=== PATIENT | female | born 1935 | race Caucasian/White ===

== ENCOUNTER 2016-08-10 14:59 | Emergency (ER) | payer MEDICARE ==
[2016-08-10 15:32] LABS: Hematocrit 41.1 % (37.0-47.0); Hemoglobin 13.6 gm/dL (12.5-16.0); Mean Cell Volume 90.3 fl (78-100); Mean Corpuscular Hemoglobin 29.9 pg (27-31); Mean Corpuscular Hgb Conc 33.1 g/dl (32-36); Neutrophil # 7.4 K/mm3 (1.3-6.0); Neutrophil % 77.6 % (42-75.0); Platelet Count 307 K/mm3 (150-450); Red Blood Count 4.55 M/mm3 (4.2-5.4); Red Cell Distribution Width 13.3 % (11.5-14.0); White Blood Count 9.6 K/mm3 (4.0-10.5)
[2016-08-10 15:43] LABS: Prothrombin Time (Patient) 10.6 Seconds (9.4-11.4)
[2016-08-10 15:45] LABS: INR 1.02 INR (0.90-1.10)
[2016-08-10 15:46] LABS: Albumin * 4.3 gm/dl (3.4-5.0); Anion Gap 14.7 mmol/L (6.8-13.8); BUN/Creatinine Ratio 12.8 (9.0-21.6); Bilirubin, Total 0.6 mg/dL (0.0-1.1); Ca. Corrected For Albumin 8.6 mg/dL (8.4-10.2); Calcium * 9.2 mg/dL (7.9-10.9); Carbon Dioxide 27.4 mmol/L (24-32.6); Magnesium 1.5 mg/dL (1.2-2.8); Potassium 4.1 mmol/L (3.4-4.6); Total Protein 7.6 gm/dL (6.2-8.2)
[2016-08-10 16:21] LABS: Urine Bilirubin Negative (NEGATIVE); Urine Ketone Negative (NEGATIVE); Urine Nitrite Negative (NEGATIVE); Urine Protein 15 mg/dL (NEGATIVE); Urine Urobilinogen Normal (NORMAL)
--- OUTSIDE RECORDS SUMMARY | 2016-08-10 16:29 | XMS REPORT | Continuity of Care Document ---
:1935 Author Organization [facility] ([facility]) Address [address] [place] [address] Phone [phone] Care Team Providers Name Role Phone Angela Echavarria Primary Care Provider [phone] Source Comments This disclosure is being made pursuant to the Care Everywhere program, applicable federal and state laws, and may not contain all informaitonavailable regarding this patient.[facility] ([facility]) Active Allergies and Adverse Reactions No Known Allergies Current Medications Prescription Sig. Disp. Refills Start Date End Date Status aspirin 81 mg tablet Take 81 mg by Active mouth daily. pravastatin 40 mg Take 20 mg by Active tablet mouth every evening. levothyroxine 50 mcg Take 50 mcg by Active tablet mouth every morning before breakfast. alendronate 70 mg Take 1 Tab by Active tablet mouth every week metFORMIN 1,000 mg Take 1 Tab by 10/25/2013 Active tablet mouth 2 times daily memantine (NAMENDA XR) Take 28 mg by Active 28 mg XR sprinkle mouth daily. capsule cyanocobalamin (VITAMIN Take 500 mcg by Active B-12) 500 mcg tablet mouth daily. cholecalciferol Take 2,000 Units Active (VITAMIN D3) 2,000 unit by mouth daily. capsule LANTUS 100 unit/mL 5 Units daily. 07/09/2016 Active injection vial HUMALOG KWIKPEN 100 5 Units daily. 06/22/2016 Active unit/mL injection pen donepezil 10 mg tablet Take 1 tab daily 90 tablet 3 08/05/2016 Active after completing 6 weeks of 5mg daily with no side effects donepezil 5 mg tablet Take one tab 45 tablet 0 08/05/2016 Active daily for 6 weeks, then increase to 10mg daily Active Problems Problem Noted Date S/P AVR (aortic valve replacement) 02/26/2016 Overview: #19 Epic Aortic stenosis 12/18/2014 Overview: S/p #19 Epic AVR CAD in [place] artery 12/18/2014 Overview: 2V CAD, unable to be bypassed at time of AVR Mitral regurgitation 12/18/2014 Diastolic dysfunction 12/18/2014 Atherosclerosis of both carotid arteries 12/18/2014 Chronic renal insufficiency 12/18/2014 Essential hypertension 12/18/2014 Hyperlipidemia 12/18/2014 Diabetes mellitus 12/18/2014 Falls frequently 02/22/2013 Neural hearing loss, bilateral 02/22/2013 Most Recent Encounters Date Type Specialty Providers Description 08/05/2016 Office Visit Neurology Antoine Alves MD Dx: Alzheimer's dementia Leo Mesa MD without behavioral Jamey Napier MD disturbance, unspecified timing of dementia onset (Primary Dx) Social History Tobacco Use Types Packs/Day Years Used Date Never Smoker Smokeless Tobacco: Never Used Alcohol Use Drinks/Week oz/Week Comments No Last Filed Vital Signs Vital Sign Reading Time Taken Blood Pressure 129/69 08/05/2016 2:00 PM INCLUSION SPECIAL EDUCATOR Pulse 96 08/05/2016 2:00 PM INCLUSION SPECIAL EDUCATOR Temperature 36.8 C (98.2 F) 02/22/2013 9:37 AM CDT Respiratory Rate - - Height 1.575 m (5' 2") 08/05/2016 2:00 PM INCLUSION SPECIAL EDUCATOR Weight 52.617 kg (116 lb) 08/05/2016 2:00 PM INCLUSION SPECIAL EDUCATOR Body Mass Index 21.21 08/05/2016 2:00 PM INCLUSION SPECIAL EDUCATOR Oxygen Saturation - - Plan of Care Date Type Specialty Providers Description 02/04/2017 Appointment Neurology Leo Mesa MD [address] [place] [address] [phone] (Fax) Chief Comp: Patient Jamey Napier MD [address] [place] [address] [phone] (Fax) Reported Reason For Visit 04/21/2017 Appointment Heart and Vascular Carlos Zepeda, Chief Comp: Patient Reported Reason For [address] [place] [address] [phone] (Fax) Health Maintenance Due Date Last Done Comments Hepatitis B Vaccine (1 of 3 - Primary Series) 1935 Tdap Vaccine 1946 DIABETIC: Cholesterol 1953 Diabetic: Hdl 1953 DIABETIC: Hemoglobin A1C 1953 Diabetic: Ldl 1953 DIABETIC: Microalbumin 1953 DIABETIC: Triglycerides 1953 Td Vaccine 1953 Colonoscopy 01/30/1985 Zoster Vaccine 1995 Osteoporosis Screening (DXA Bone Density) 02/01/2000 Pneumococcal Vaccine (1 of 2 - PCV13) 02/01/2000 DIABETIC: Foot Exam 12/18/2014 DIABETIC: Retinal Eye Exam 12/18/2014 Influenza Vaccine: Seasonal (#1) 01/13/2016 Results from Last 3 Months Not on file
[2016-08-10 16:34] LABS: Urine Appearance Clear; Urine Blood 10 /ul (NEGATIVE); Urine Color Yellow
[2016-08-10 16:35] LABS: Urine Bacteria 2+; Urine RBC None Seen /hpf (0-5); Urine WBC None Seen /hpf (0-5)
[2016-08-10] MEDS ORDERED: DIPHTH,PERTUSS(ACELL),TET VAC 0.5 ML VIAL IM ONE ×2 (18:32→19:02)
--- NOTE | 2016-08-10 18:43 | ERNOTE ---
Head Injury HPI - Narrative Date of Service: 08/10/16 - General Injury to: head Time Seen by Provider: 08/10/16 15:09 Source: patient, EMS Exam Limitations: other - Cognitive impairment - Immun/Allergies/Home Medications Immunization: IMMUNIZATION HX Immunizations Up to Date Yes History of Influenza Vaccine Yes Hx Pneumococcal Vaccination No Allergies/Adverse Reactions: Allergies Allergy/AdvReac Type Severity Reaction Status Date / Time No Known Allergies Allergy Verified 05/09/16 20:57 Home Medications: HOME MEDICATIONS Aspirin 81 mg PO DAILY 10/18/15 [Last Taken 01/22/16 08:00] Calcium Carbonate/Vitamin D3 [Calcium 600-Vit D3 800 Tablet] 1 tab PO BID [Last Taken 01/21/16 17:00] Cholecalciferol (Vitamin D3) [Vitamin D3] 2,000 unit PO DAILY 10/18/15 [Last Taken 01/21/16 17:00] Cyanocobalamin [Vitamin B-12] 500 mcg PO DAILY 10/18/15 [Last Taken 01/22/16 08: 00] Levothyroxine Sodium [Synthroid] 50 mcg PO DAILY 10/18/15 [Last Taken 01/22/16 08:00] Memantine HCl [Namenda Xr] 28 mg PO DAILY 10/18/15 [Last Taken 01/21/16 17:00] Pravastatin Sodium [Pravachol] 20 mg PO DAILY 10/18/15 [Last Taken 01/22/16 08: 00] metFORMIN HCL [Glucophage] 1,000 mg PO BID 10/18/15 [Last Taken 01/22/16 08:00] Debrox 5 drop EACH EAR BID 05/06/16 [Last Taken Unknown] Insulin Glargine,Hum.rec.anlog [Lantus] 10 units SC HS #1 vial 05/08/16 [Last Taken Unknown] - History of Present Illness Narrative: Patient was at apparently attempting to walk and without her walker and bent over to pick something up lost her balance and fell forward striking the right lateral eyebrow producing fair amount of swelling and bleeding from this site there as well as ecchymosis around the area of the laceration. Occurred: just prior to arrival Location Occurred: home Severity: moderate Head Injury Location: facial Method of Injury: Reports: fell Reason for Fall: Reports: lost balance Loss of Consciousness: Reports: unsure Associated Symptoms: Reports: denies symptoms Review of Systems - Review of Systems Constitutional: Present: See HPI EYE: Present: other - bleeding around the right lateral eye area ENT: Present: no symptoms reported Respiratory: Present: no symptoms reported Cardiology: Present: no symptoms reported Gastrointestinal/Abdominal: Present: no symptoms reported Genitourinary: Present: no symptoms reported Musculoskeletal: Present: no symptoms reported Skin: Present: no symptoms reported Neurological: Present: other - cognitive problems so a complete history is not able to be obtained Endocrine: Present: no symptoms reported Hematologic/Lymphatic: Present: no symptoms reported Psych: Present: no symptoms reported - Patient's Past Medical History Patient History - Medical: Arthritis, Cataracts, Diabetes Type 2 Insulin Dependent, Dementia, Depression, Hypothyroidism, Osteoporosis Patient History - Cardiac/Respiratory: Hyperlipidemia Patient History - Cancer: No Hx of Cancer Patient History - Surgical Procedures: Other Patient History - Other: None - Family History Mother Family History - Medical: Family History - Cardiac/Respiratory: No pertinent hx Father Family History - Medical: Family History - Cardiac/Respiratory: CVA/Stroke - Social History Living Situations: home Abuse History: No History of abuse Psych History: No pertinent hx Smoking Status: Never smoker Alcohol Use: none Drug Use: none - Immunizations Immunizations Up to Date: Yes Hx Pneumococcal Vaccination: No History of Influenza Vaccine: Yes Physical Exam - Physical Exam General Appearance: Present: wd/wn, moderate distress, other - 1.5 cm laceration around the right lateral eyebrow with copious bleeding Eye Exam: PERRL: bilateral, EOMI: bilateral Ears, Nose, Throat: Present: normal ENT inspection, hearing grossly normal, normal pharynx Neck: Present: normal inspection, nontender Respiratory: Present: no respiratory distress, normal breath sounds, no accessory muscle use, chest nontender, lungs clear Cardiovascular/Chest: Present: regular rate, rhythm, no murmur, normal peripheral pulses Gastrointestinal/Abdominal: Present: normal bowel sounds, nontender, nondistended, soft, no organomegaly Rectal Exam: Present: deferred Back Exam: Present: normal inspection, normal range of motion Extremity Exam: Present: normal inspection, non-tender, no edema, normal range of motion Neurological Exam: Present: disoriented to person, disoriented to time, disoriented to place, disoriented to situation Skin Exam: Present: normal color, warm/dry Lymphatic Exam: Present: no adenopathy ED Progress - Results and Orders Patient's Lab Results:: I have reviewed the patient's lab results. - Vital Signs Patient's Vital Signs:: I have reviewed the patient's vital signs. Vital Signs: Vital Signs 08/10/16 15:07 Temperature 36.2 C L Pulse Rate 96 Respiratory 12 Rate Blood Pressure 197/87 O2 Sat by Pulse 98 Oximetry - CT/Ultrasound CT/Ultrasound Narrative: CT results reviewed and discussed with the family and the [facility]. - Progress/Reassessment Chief Complaint: Head Injury Progress:: Unchanged - Transfer of Care Expected Disposition: Transfer - [facility] for ophthalmology referral Procedures Eye Anesthesia: Lidocaine w/ Epi I & D Prep: betadine prep, sterile drapes applied Wound's Depth/Shape: into subcutaneous Wound Explored: clean Foreign body identified: wood Distal NVT: neuro/vasc intact Suture Size/Type: 5-0 Number of Sutures: 4 Layer Closure: Simple Complications: Pt flash procedure well Eye I & D Prep: betadine prep Plan - Plan Plan: At this point the patient's right globe appears to be intact and not see any evidence of any retropulsion of the global forward and CT appears to reveal the hematoma being on the lateral surface however as it is post-septal the potential exists for the globe to be under stress. I discussed with the [facility] as well as the family of the potential need for lateral canthotomy however at this point I appears to be fairly stable she'll be transferred there for ophthalmology consult and they will determine the next reasonable course of action. Departure Clinical Impression: Hematoma of eye associated with non-ophthalmic procedure, Facial trauma - Departure Disposition: [facility] Referrals: Angela Echavarria DO [Primary Care Provider] -
[2016-08-10 21:07] VITALS: BP 170/83
== END 2016-08-10 20:00 | disposition short-term general hospital (02) ==
LOC: ER 14:59
PROC: 0JQ10ZZ Repair Face Subcutaneous Tissue and Fascia, Open Approach (ICD-10-PCS; principal; 2016-08-10)
DX: X58.XXXA Exposure to other specified factors, initial encounter (principal); Y92.009 Unspecified place in unspecified non-institutional (private) residence as the place of occurrence of the external cause

== ENCOUNTER 2016-08-11 12:17 | Emergency (ER) | payer MEDICARE ==
--- NOTE | 2016-08-11 12:58 | ERNOTE ---
Neuro HPI ER Record Time Seen by Provider: 08/11/16 12:17 Source: family Exam Limitations: clinical condition Immunizations: IMMUNIZATION HX Immunizations Up to Date Yes History of Influenza Vaccine Yes Hx Pneumococcal Vaccination No Allergies/Adverse Reactions: Allergies Allergy/AdvReac Type Severity Reaction Status Date / Time No Known Allergies Allergy Verified 05/09/16 20:57 Home Medications: HOME MEDICATIONS Aspirin 81 mg PO DAILY 10/18/15 [Last Taken 01/22/16 08:00] Calcium Carbonate/Vitamin D3 [Calcium 600-Vit D3 800 Tablet] 1 tab PO BID [Last Taken 01/21/16 17:00] Cholecalciferol (Vitamin D3) [Vitamin D3] 2,000 unit PO DAILY 10/18/15 [Last Taken 01/21/16 17:00] Cyanocobalamin [Vitamin B-12] 500 mcg PO DAILY 10/18/15 [Last Taken 01/22/16 08: 00] Levothyroxine Sodium [Synthroid] 50 mcg PO DAILY 10/18/15 [Last Taken 01/22/16 08:00] Memantine HCl [Namenda Xr] 28 mg PO DAILY 10/18/15 [Last Taken 01/21/16 17:00] Pravastatin Sodium [Pravachol] 20 mg PO DAILY 10/18/15 [Last Taken 01/22/16 08: 00] metFORMIN HCL [Glucophage] 1,000 mg PO BID 10/18/15 [Last Taken 01/22/16 08:00] Debrox 5 drop EACH EAR BID 05/06/16 [Last Taken Unknown] Insulin Glargine,Hum.rec.anlog [Lantus] 10 units SC HS #1 vial 05/08/16 [Last Taken Unknown] - History of Present Illness Narrative: Patient fell yesterday, sustained a head laceration and intracranial bleed, was seen in the ER, and transferred to the [facility] for ophthalmology consult. AT the time they were seen the swelling behind the eye had decreased and she was discharged around midnight and send back to the [place]. At that time she was alert. She apparently had another fall around 11:15, landing on her buttock , no apparent headinjury, but she has not acted herself, was confused, did not recognized her daughter, did not follow commands. Her glucose in the morning was elevated and she received her insulin, did not eat much, glucose 67 when ambulance came, received amp of D50 Context: fall, injury - head - Character of Deficits Baseline Cognition: Present: alert but disoriented to time Baseline Gait: Present: uses a cane/walker Prior Treament: Reports: recently seen - Patient's Past Medical History Patient History - Medical: Arthritis, Cataracts, Diabetes Type 2 Insulin Dependent, Dementia, Depression, Hypothyroidism, Osteoporosis Patient History - Cardiac/Respiratory: Hyperlipidemia Patient History - Cancer: No Hx of Cancer Patient History - Surgical Procedures: Other Patient History - Other: None - Family History Mother Family History - Medical: Family History - Cardiac/Respiratory: No pertinent hx Father Family History - Medical: Family History - Cardiac/Respiratory: CVA/Stroke - Social History Living Situations: assisted living Abuse History: No History of abuse Psych History: No pertinent hx Alcohol Use: none Drug Use: none - Immunizations Immunizations Up to Date: Yes Hx Pneumococcal Vaccination: No History of Influenza Vaccine: Yes Physical Exam - Physical Exam General Appearance: Present: wd/wn, alert, no apparent distress Eye Exam: Normal inspection: bilateral, PERRL: bilateral Ears, Nose, Throat: Present: normal pharynx, other - echymosis around right eye, sutured laceration right eye brow, no active bleeding Respiratory: Present: no respiratory distress, no accessory muscle use, lungs clear, decreased breath sounds Cardiovascular/Chest: Present: regular rate, rhythm, no murmur Gastrointestinal/Abdominal: Present: normal bowel sounds, nontender, nondistended, soft Extremity Exam: Present: normal inspection, non-tender, other - skin tears right hand (present yesterday) Neurological Exam: Present: alert, oriented - to person only, recognized daughter, disoriented to time, disoriented to place, disoriented to situation, other Initial Stroke Assessment - NIH Stroke Scale Level of Consciousness: Alert LOC Questions (Year and Age): Answers neither correctly LOC Commands (open/close eyes/fist): Performs both correctly Lateral Gaze Paresis: None Facial Palsy: Normal movement Right Arm Motor (10 sec hold): No drift Left Arm Motor (10 sec hold): No drift Limb Ataxia (finger/nose heel/chu): Absent Sensory Loss (pinprick arms/legs/face): No sensory loss ED Progress - Results and Orders Patient's Lab Results:: I have reviewed the patient's lab results. - Vital Signs Patient's Vital Signs:: I have reviewed the patient's vital signs. Vital Signs: Vital Signs 08/11/16 08/11/16 12:20 12:28 Temperature 35.5 C L Pulse Rate 85 84 Respiratory 16 Rate Blood Pressure 152/66 O2 Sat by Pulse 99 Oximetry - CT/Ultrasound CT/Ultrasound Narrative: CT head: no new findings - Progress/Reassessment Chief Complaint: Fall Progress Note-Subjective: 08/11/16 14:[address] results with patient and family. Patient alert. Patient should not stay by herself and have assistance with walking and have her glucose monitored closely discussed observation admission vs staying with family 08/11/16 14:52 family will take her home Departure Clinical Impression: Contusion of face Qualifiers: Encounter type: subsequent encounter Qualified Code(s): S00.83XD - Contusion of other part of head, subsequent encounter Concussion Qualifiers: Encounter type: subsequent encounter Loss of consciousness presence/duration: without LOC Qualified Code(s): S06.0X0D - Concussion without loss of consciousness, subsequent encounter - Departure Disposition: Home self-care Condition: Fair Instructions: Concussion, Adult, [id number] Additional Instructions: make sure someone is with you when you walk the next couple of days keep a close eye on your sugar Referrals: Angela Echavarria DO [Staff Physician] -
[2016-08-11 13:02] LABS: Hematocrit 39.8 % (37.0-47.0); Hemoglobin 13.1 gm/dL (12.5-16.0); Mean Corpuscular Hemoglobin 29.6 pg (27-31); Mean Corpuscular Hgb Conc 32.9 g/dl (32-36); Mean Platelet Volume 10.2 fl (6.0-9.5); Neutrophil # 10.5 K/mm3 (1.3-6.0); Neutrophil % 81.9 % (42-75.0); Platelet Count 302 K/mm3 (150-450); Red Blood Count 4.42 M/mm3 (4.2-5.4); Red Cell Distribution Width 13.4 % (11.5-14.0); White Blood Count 12.9 K/mm3 (4.0-10.5)
[2016-08-11 13:16] LABS: BUN/Creatinine Ratio 14.2 (9.0-21.6); Bilirubin, Total 0.8 mg/dL (0.0-1.1); Ca. Corrected For Albumin 8.7 mg/dL (8.4-10.2); Carbon Dioxide 23.4 mmol/L (24-32.6); Potassium 3.4 mmol/L (3.4-4.6); Total Protein 7.1 gm/dL (6.2-8.2)
[2016-08-11] MEDS ORDERED: DEXTROSE 4 GM/TAB BTL ONE (13:32)
[2016-08-11] MEDS ORDERED: DEXTROSE 4 GM/TAB BTL PO ONE (13:35)
[2016-08-11 14:25] VITALS: BP 134/61
--- OUTSIDE RECORDS SUMMARY | 2016-08-11 16:04 | XMS REPORT | Continuity of Care Document ---
:1935 Author Organization [facility] ([facility]) Address [address] [place] [address] Phone [phone] Care Team Providers Name Role Phone Angela Echavarria Primary Care Provider [phone] Source Comments This disclosure is being made pursuant to the Care Everywhere program, applicable federal and state laws, and may not contain all informaitonavailable regarding this patient.[facility] ([facility]) Active Allergies and Adverse Reactions No Known [...] Overview: S/p #19 Epic AVR CAD in [place] artery 12/18/2014 Overview: 2V CAD, unable to be bypassed at time of AVR Mitral regurgitation 12/18/2014 Diastolic dysfunction 12/18/2014 Atherosclerosis of both carotid arteries 12/18/2014 Chronic renal insufficiency 12/18/2014 Essential hypertension 12/18/2014 Hyperlipidemia 12/18/2014 Diabetes mellitus 12/18/2014 Falls frequently 02/22/2013 Neural hearing loss, bilateral 02/22/2013 Most Recent Encounters Date Type Specialty Providers Description 08/10/2016 Hospital Emergency Medicine Neela Blank MD Dx: Hematoma Encounter (Primary Dx) 08/10/2016 Ophth Exam Ophthalmology - Edward Suarez, Specialty MD 08/05/2016 Office Visit Neurology Antoine Alves Dx: Alzheimer's MD Nikko dementia without Leo Mesa behavioral MD disturbance, aJmey Napier unspecified timing MD Verito of dementia onset (Primary Dx) Social History Tobacco Use Types Packs/Day Years Used Date Never Smoker Smokeless Tobacco: Never Used Alcohol Use Drinks/Week oz/Week Comments No Last Filed Vital Signs Vital Sign Reading Time Taken Blood Pressure 175/90 08/10/2016 11:15 PM DEVICE PROCESSING ENGINEER Pulse 98 08/10/2016 9:49 PM DEVICE PROCESSING ENGINEER Temperature 36 C (96.8 F) 08/10/2016 9:49 PM DEVICE PROCESSING ENGINEER Respiratory Rate 18 08/10/2016 9:49 PM DEVICE PROCESSING ENGINEER Height 1.575 m (5' 2") 08/05/2016 2:00 PM DEVICE PROCESSING ENGINEER Weight 52.617 kg (116 lb) 08/05/2016 2:00 PM DEVICE PROCESSING ENGINEER Body Mass Index 21.21 08/05/2016 2:00 PM DEVICE PROCESSING ENGINEER Oxygen Saturation 98% 08/10/2016 11:15 PM DEVICE PROCESSING ENGINEER Plan of Care Date Type Specialty Providers Description 02/04/2017 Appointment Neurology Leo Mesa MD [address] [place] [address] [phone] (Fax) Chief Comp: Patient Jamey Napier MD [address] [place] [address] [phone] (Fax) Reported Reason For Visit 04/21/2017 Appointment Heart and Vascular Carlos Zepeda, Chief Comp: Patient MD Reported Reason For [address] [place] [address] [phone] (Fax) Health Maintenance Due Date Last Done [...] (#1) 01/13/2016 Results from Last 3 Months BLOOD GLUCOSE, BEDSIDE (08/10/2016 11:17 PM) Component Value Range Glucose, Accu-Chek 206(H) 65-99 mg/dL Specimen Blood, capillary
== END 2016-08-11 14:50 | disposition home or self-care (01) ==
LOC: ER 12:17
DX: S00.83XD Contusion of other part of head, subsequent encounter (principal); S06.0X0D Concussion without loss of consciousness, subsequent encounter

== ENCOUNTER 2016-10-14 09:22 | Emergency (ER) | payer MEDICARE ==
--- NOTE | 2016-10-14 10:11 | ERNOTE ---
Lower Extremity HPI - Narrative Date of Service: 10/14/16 - General Lower Extremities Pain: hip: left Time Seen by Provider: 10/14/16 09:55 Source: patient Exam Limitations: no limitations - Immun/Allergies/Home Medications Immunizations: IMMUNIZATION HX Immunizations Up to Date Yes History of Influenza Vaccine Yes Hx Pneumococcal Vaccination No Allergies/Adverse Reactions: Allergies Allergy/AdvReac Type Severity Reaction Status Date / Time No Known Allergies Allergy Verified 10/14/16 09:23 Home Medications: HOME MEDICATIONS Aspirin 81 mg PO DAILY 10/18/15 [Last Taken 01/22/16 08:00] Calcium Carbonate/Vitamin D3 [Calcium 600-Vit D3 800 Tablet] 1 tab PO BID [Last Taken 01/21/16 17:00] Cholecalciferol (Vitamin D3) [Vitamin D3] 2,000 unit PO DAILY 10/18/15 [Last Taken 01/21/16 17:00] Cyanocobalamin [Vitamin B-12] 500 mcg PO DAILY 10/18/15 [Last Taken 01/22/16 08: 00] Levothyroxine Sodium [Synthroid] 50 mcg PO DAILY 10/18/15 [Last Taken 01/22/16 08:00] Memantine HCl [Namenda Xr] 28 mg PO DAILY 10/18/15 [Last Taken 01/21/16 17:00] Pravastatin Sodium [Pravachol] 20 mg PO DAILY 10/18/15 [Last Taken 01/22/16 08: 00] metFORMIN HCL [Glucophage] 1,000 mg PO BID 10/18/15 [Last Taken 01/22/16 08:00] Debrox 5 drop EACH EAR BID 05/06/16 [Last Taken Unknown] Insulin Glargine,Hum.rec.anlog [Lantus] 5 units SC DAILY 10/14/16 [Last Taken Unknown] Insulin Lispro [Humalog] 5 units SQ AC 10/14/16 [Last Taken Unknown] Naproxen [Naprosyn] 500 mg PO BID PRN #60 tab 10/14/16 [Last Taken Unknown] - History of Present Illness Narrative: Pt. comes in with c/o L hip pain after she fell two days ago. Pt. denies any numbness, tingling, SOB, CP, NVD, weakness, or change in blood sugars recently. Pt. has a hx of falls and denies pain directly after the fall but states that it started gradually and worsened suddenly this morning when she awoke and was trying to get ready for the day. Pt. denies any other fall or injury. Pt. denies any prehospital treatment from the [facility]. Review of Systems - Review of Systems Constitutional: Present: no symptoms reported. Absent: recent illness, fever, chills, weakness, fatigue, malaise EYE: Present: no symptoms reported ENT: Present: no symptoms reported. Absent: ear pain, nose congestion, nasal drainage, throat swelling Respiratory: Present: no symptoms reported. Absent: shortness of breath, cough , wheezing Cardiology: Present: no symptoms reported. Absent: chest pain, palpitations, edema Genitourinary: Present: no symptoms reported Musculoskeletal: Present: joint pain - L hip. Absent: back pain, neck pain Skin: Present: no symptoms reported. Absent: rash, change in color, change in hair/nails Neurological: Present: no symptoms reported. Absent: headache, dizziness/light- headedness, numbness, tingling All Other Systems: All systems neg except as marked - Patient's Past Medical History Patient History - Medical: Arthritis, Cataracts, Diabetes Type 2 Insulin Dependent, Dementia, Depression, Hypothyroidism, Osteoporosis Patient History - Cardiac/Respiratory: Hyperlipidemia Patient History - Cancer: No Hx of Cancer Patient History - Surgical Procedures: Other Patient History - Other: None - Family History Mother Family History - Medical: Family History - Cardiac/Respiratory: No pertinent hx Father Family History - Medical: Family History - Cardiac/Respiratory: CVA/Stroke - Social History Living Situations: halfway Abuse History: No History of abuse Psych History: No pertinent hx Alcohol Use: none Drug Use: none - Immunizations Immunizations Up to Date: Yes Hx Pneumococcal Vaccination: No History of Influenza Vaccine: Yes Physical Exam - Physical Exam General Appearance: Present: wd/wn, alert, no apparent distress Eye Exam: Normal inspection: bilateral, PERRL: bilateral, EOMI: bilateral Ears, Nose, Throat: Present: normal ENT inspection, normal pharynx Neck: Present: normal inspection, nontender. Absent: lymphadenopathy (R), lymphadenopathy (L) Respiratory: Present: no respiratory distress, normal breath sounds, no accessory muscle use, chest nontender, lungs clear Cardiovascular/Chest: Present: regular rate, rhythm, no murmur, normal peripheral pulses Gastrointestinal/Abdominal: Present: normal bowel sounds, nontender, nondistended, soft, no organomegaly Back Exam: Present: normal inspection, normal range of motion, no CVA tenderness , no vertebral tenderness. Absent: muscle spasm Extremity Exam: Present: normal range of motion, no edema, bony tenderness - Prox lateral and anterior femur, other - pain with adduction and flexion of hip joint Neurological Exam: Present: alert, oriented, normal mood/affect, no motor/ sensory deficits, plug stitcher II-XII nml as tested, normal cerebellar test Skin Exam: Present: normal color, warm/dry. Absent: pallor, skin rash ED Progress - Vital Signs Patient's Vital Signs:: I have reviewed the patient's vital signs. Vital Signs: Vital Signs 10/14/16 09:25 Temperature 36 C L Pulse Rate 101 H Respiratory 12 Rate Blood Pressure 144/65 O2 Sat by Pulse 98 Oximetry - X-Ray X-Ray #1 X-Ray: lumbosacral Interpretation: Reviewed by me X-ray Comments: degenerative chanes but no acute pathology noted X-Ray #2 X-Ray: hip X-ray Comments: Mild arthritic changes no acute ossious abnormality - Progress/Reassessment Chief Complaint: Lower Extremity Pain/ Injury Departure Clinical Impression: Contusion, hip Qualifiers: Encounter type: initial encounter Laterality: left Qualified Code(s): S70.02XA - Contusion of left hip, initial encounter - Departure Disposition: [facility] self-care Condition: Good Referrals: Angela Echavarria DO [Primary Care Provider] - Prescriptions: Naproxen [Naprosyn] 500 mg PO BID PRN #60 tab PRN Reason: Pain
--- OUTSIDE RECORDS SUMMARY | 2016-10-14 10:36 | XMS REPORT | Continuity of Care Document ---
:1935 Author Organization [facility] ([facility]) Address [address] [place] [address] Phone [phone] Care Team Providers Name Role Phone Angela Echavarria Primary Care Provider [phone] Source Comments This disclosure is being made pursuant to the Care Everywhere program, applicable federal and state laws, and may not contain all informaitonavailable regarding this patient.[facility] ([facility]) Active Allergies and Adverse Reactions No [...] Overview: S/p #19 Epic AVR CAD in [place] artery 12/18/2014 Overview: 2V CAD, unable to be bypassed at time of AVR Mitral regurgitation 12/18/2014 Diastolic dysfunction 12/18/2014 Atherosclerosis of both carotid arteries 12/18/2014 Chronic renal insufficiency 12/18/2014 Essential hypertension 12/18/2014 Hyperlipidemia 12/18/2014 Diabetes mellitus 12/18/2014 Falls frequently 02/22/2013 Neural hearing loss, bilateral 02/22/2013 Most Recent Encounters Date Type Specialty Providers Description 09/29/2016 Erroneous Neurology [facility] Chief Comp: Error Encounter MD [facility] 08/10/2016 Hospital Emergency Medicine Neela Blank MD Dx: Hematoma Encounter (Primary Dx) 08/10/2016 Ophth Exam Ophthalmology - Edward Suarez Specialty MD 08/05/2016 Office Visit Neurology Antoine Alves Dx: Alzheimer's MD Nikko dementia without Leo Mesa behavioral MD disturbance, [facility] unspecified timing MD Verito of dementia onset (Primary Dx) Social History Tobacco Use Types Packs/Day Years Used Date Never Smoker Smokeless Tobacco: Never Used Alcohol Use Drinks/Week oz/Week Comments No Last Filed Vital Signs Vital Sign Reading Time Taken Blood Pressure 175/90 08/10/2016 11:15 PM REAL ESTATE SALES SUPERVISOR Pulse 98 08/10/2016 9:49 PM REAL ESTATE SALES SUPERVISOR Temperature 36 C (96.8 F) 08/10/2016 9:49 PM REAL ESTATE SALES SUPERVISOR Respiratory Rate 18 08/10/2016 9:49 PM REAL ESTATE SALES SUPERVISOR Height 1.575 m (5' 2") 08/05/2016 2:00 PM REAL ESTATE SALES SUPERVISOR Weight 52.617 kg (116 lb) 08/05/2016 2:00 PM REAL ESTATE SALES SUPERVISOR Body Mass Index 21.21 08/05/2016 2:00 PM REAL ESTATE SALES SUPERVISOR Oxygen Saturation 98% 08/10/2016 11:15 PM REAL ESTATE SALES SUPERVISOR Plan of Care Date Type Specialty Providers Description 02/04/2017 Appointment Neurology Leo Mesa MD [address] [place] [address] [phone] (Fax) Chief Comp: Patient Jamey Napier MD [address] [place] [address] [phone] (Fax) Reported Reason For Visit 04/21/2017 Appointment Heart and Vascular Carlos Zepeda, Chief Comp: Patient MD Reported Reason For [address] [place] [address] [phone] (Fax) Health Maintenance Due Date Last Done [...] Retinal Eye Exam 12/18/2014 Influenza Vaccine: Seasonal (Season Ended) 2017 Results from Last 3 Months BLOOD GLUCOSE, BEDSIDE (08/10/2016 11:17 PM) Component Value Range Glucose, Accu-Chek 206(H) 65-99 mg/dL Specimen Blood, capillary
[2016-10-14 11:02] VITALS: BP 175/95
== END 2016-10-14 11:10 | disposition home or self-care (01) ==
LOC: ER 09:22
DX: S70.02XA Contusion of left hip, initial encounter (principal); W19.XXXA Unspecified fall, initial encounter; Z91.81 History of falling; Y93.9 Activity, unspecified; Y92.9 Unspecified place or not applicable

== ENCOUNTER 2016-10-17 19:04 | Emergency (ER) | payer MEDICARE ==
--- OUTSIDE RECORDS SUMMARY | 2016-10-17 20:21 | XMS REPORT | Continuity of Care Document ---
:1935 Author Organization [facility] ([facility]) Address [address] [place] [address] Phone [phone] Care Team Providers Name Role Phone Angela Echavarria Primary Care Provider [phone] Source Comments This disclosure is being made pursuant to the Care Everywhere program, applicable federal and state laws, and may not contain all informaitonavailable regarding this patient.[facility] ([facility]) Active Allergies and Adverse Reactions No [...] Overview: S/p #19 Epic AVR CAD in [place] artery 12/18/2014 Overview: 2V CAD, unable [...] Taken Blood Pressure 175/90 08/10/2016 11:15 PM FISHER GILL NET Pulse 98 08/10/2016 9:49 PM [employer]ER G[employer] NET Temperature 36 C (96.8 F) 08/10/2016 9:49 PM [employer] NET Respiratory Rate 18 08/10/2016 9:49 PM [employer]ER GILL NET Height 1.575 m (5' 2") 08/05/2016 2:00 PM [employer]ER GILL NET Weight 52.617 kg (116 lb) 08/05/2016 2:00 PM [employer] Body Mass Index 21.21 08/05/2016 2:00 PM [employer] Oxygen Saturation 98% 08/10/2016 11:15 PM [employer] NET Plan of Care Date Type Specialty Providers Description 02/04/2017 Appointment Neurology Leo Mesa MD [address] [place] [address] [phone] (Fax) Chief Comp: Patient Jamey Napier MD [address] [place] [address] [phone] (Fax) Reported Reason For Visit 04/21/2017 Appointment Heart and Vascular Carlos Zepeda, Chief Comp: Patient MD Reported Reason For [address] [place] [address] [phone] (Fax) Health Maintenance Due Date Last Done [...]
--- NOTE | 2016-10-17 21:39 | ERNOTE ---
Lower Extremity HPI - Narrative Date of Service: 10/17/16 - General Lower Extremities Pain: hip: bilateral - pain with ambulation Time Seen by Provider: 10/17/16 20:10 Source: patient Exam Limitations: no limitations - Immun/Allergies/Home Medications Immunizations: IMMUNIZATION HX Immunizations Up to Date Yes History of Influenza Vaccine Yes Hx Pneumococcal Vaccination Yes Allergies/Adverse Reactions: Allergies Allergy/AdvReac Type Severity Reaction Status Date / Time No Known Allergies Allergy Verified 10/14/16 09:23 Home Medications: HOME MEDICATIONS Aspirin 81 mg PO DAILY 10/18/15 [Last Taken 01/22/16 08:00] Calcium Carbonate/Vitamin D3 [Calcium 600-Vit D3 800 Tablet] 1 tab PO BID [Last Taken 01/21/16 17:00] Cholecalciferol (Vitamin D3) [Vitamin D3] 2,000 unit PO HS 10/18/15 [Last Taken 01/21/16 17:00] Cyanocobalamin [Vitamin B-12] 500 mcg PO DAILY 10/18/15 [Last Taken 01/22/16 08: 00] Levothyroxine Sodium [Synthroid] 50 mcg PO DAILY 10/18/15 [Last Taken 01/22/16 08:00] Memantine HCl [Namenda Xr] 28 mg PO DAILY 10/18/15 [Last Taken 01/21/16 17:00] Pravastatin Sodium [Pravachol] 20 mg PO DAILY 10/18/15 [Last Taken 01/22/16 08: 00] metFORMIN HCL [Glucophage] 1,000 mg PO BID 10/18/15 [Last Taken 01/22/16 08:00] Insulin Glargine,Hum.rec.anlog [Lantus] 5 units SC DAILY 10/14/16 [Last Taken Unknown] Donepezil HCl [Aricept] 10 mg PO HS 10/17/16 [Last Taken Unknown] - History of Present Illness Narrative: 81 year old female presenting to the ED for hip pain/pelvic pain. patient fell wednesday and had a hip x-ray that was negative. Per family patient has dementia. She has been less active and unable to walk unassisted per family. Accurate assessment is difficult r/t her dementia Date (Duration): 10/17/16 Occurred: last week Location of Incident: home Method of Injury: Reports: fell Reason for Fall: Reports: lost balance Loss of Consciousness: Reports: no loss of consciousness Modifying Factors - (Improves): Reports: immobilization Modifying Factors - (Worsens): Reports: movement Associated Symptoms: Reports: other injuries - unable to walk Other Injuries: Reports: none Prior Treament: Reports: recently seen, treated by physician Review of Systems - Review of Systems Constitutional: Present: See HPI EYE: Present: no symptoms reported ENT: Present: no symptoms reported Respiratory: Present: no symptoms reported Cardiology: Present: no symptoms reported Gastrointestinal/Abdominal: Present: no symptoms reported Genitourinary: Present: no symptoms reported Musculoskeletal: Present: See HPI Skin: Present: no symptoms reported Neurological: Present: See HPI Endocrine: Present: no symptoms reported Hematologic/Lymphatic: Present: no symptoms reported Psych: Present: See HPI - Patient's Past Medical History Patient History - Medical: Arthritis, Cataracts, Diabetes Type 2 Insulin Dependent, Dementia, Depression, Hypothyroidism, Osteoporosis Patient History - Cardiac/Respiratory: Hyperlipidemia Patient History - Cancer: No Hx of Cancer Patient History - Surgical Procedures: Other Patient History - Other: None - Family History Mother Family History - Medical: Family History - Cardiac/Respiratory: No pertinent hx Father Family History - Medical: Family History - Cardiac/Respiratory: CVA/Stroke - Social History Living Situations: assisted living Abuse History: No History of abuse Psych History: No pertinent hx Smoking Status: Never smoker Alcohol Use: none Drug Use: none - Immunizations Immunizations Up to Date: Yes Hx Pneumococcal Vaccination: Yes History of Influenza Vaccine: Yes Physical Exam - Physical Exam Narrative: This pleasant 81-year-old female is complaining of pain. She is unable to pinpoint the pain and is very forgetful during the exam. Family states that she is having issues with therapy walking was unable to walk more than one step at a time with heavy assist. Pelvic rock did not induce any pain. patient sitting in WC was able to swing both feet back and forth with out pain. General Appearance: Present: wd/wn, alert, no apparent distress Eye Exam: Normal inspection: bilateral Ears, Nose, Throat: Present: normal ENT inspection Neck: Present: normal inspection, nontender, full range of motion Respiratory: Present: no respiratory distress, normal breath sounds, no accessory muscle use Cardiovascular/Chest: Present: regular rate, rhythm, no murmur, normal peripheral pulses Gastrointestinal/Abdominal: Present: normal bowel sounds, soft Back Exam: Present: normal inspection, normal range of motion, no vertebral tenderness Extremity Exam: Present: normal inspection, no edema Neurological Exam: Present: alert, normal mood/affect, no motor/sensory deficits , disoriented to time Skin Exam: Present: normal color, warm/dry Lymphatic Exam: Present: no adenopathy ED Progress - Results and Orders Patient's Lab Results:: I have reviewed the patient's lab results. Results and Orders: ua sent for culture - Vital Signs Patient's Vital Signs:: I have reviewed the patient's vital signs. Vital Signs: Vital Signs 10/17/16 19:26 Temperature 36.9 C Pulse Rate 93 Respiratory 18 Rate Blood Pressure 132/75 O2 Sat by Pulse 98 Oximetry - CT/Ultrasound CT/Ultrasound Narrative: ct abd and pelvis Technique: Multiple axial images obtained through the pelvis without use of IV or oral contrast. Sagittal and coronal reconstructions were obtained. Findings: The visualized small bowel and colon are grossly normal. The appendix is identified and appears normal. There are diverticula within the sigmoid colon without definable diverticulitis. The urinary bladder appears normal on this study. There is a partially calcified atrophic uterus. The ovaries are not seen. I do not see evidence for free fluid or mass in the pelvis. There is diffuse osteopenia. The bony pelvis is intact and I do not see evidence for fracture or diastases. The pubic symphysis and sacroiliac joints are maintained. There is degenerative change in the lower lumbar spine. The right and left femoral heads are normally positioned within the acetabulum. The proximal femurs appear intact and I do not see evidence for definable fracture. The skeletal muscle appears symmetric and I do not see evidence for definable fluid collection. A preliminary report was provided by [facility] on 10/17/2016 at 2141 hours. IMPRESSION: 1. DIFFUSE OSTEOPENIA. 2. NO ACUTE OSSEOUS ABNORMALITY. Electronically signed by Tien Au M.D.. - Progress/Reassessment Chief Complaint: Lower Extremity Pain/ Injury Progress:: Improved Departure Clinical Impression: Contusion, hip Qualifiers: Encounter type: subsequent encounter Laterality: right Qualified Code(s): S70.01XD - Contusion of right hip, subsequent encounter - Departure Disposition: Home Follow Up Needed Condition: Good Instructions: Hip Pain Additional Instructions: Continue previous home medications. Follow up with her primary care provider on Wednesday. Take [id number] pain medications as needed for pain. Return to emergency room if symptoms persist or become worse. Referrals: Angela Echavarria DO [Primary Care Provider] -
[2016-10-17 21:58] LABS: Urine Bilirubin Negative (NEGATIVE); Urine Blood Negative /ul (NEGATIVE); Urine Ketone Negative (NEGATIVE); Urine Nitrite Negative (NEGATIVE); Urine Protein 15 mg/dL (NEGATIVE); Urine Specific Gravity 1.015 SP.GR. (1.005-1.010); Urine Urobilinogen Normal (NORMAL)
[2016-10-17 22:05] LABS: Urine Appearance Clear; Urine Color Yellow
[2016-10-17 22:06] LABS: Urine Bacteria 1+; Urine RBC None Seen /hpf (0-5); Urine WBC 0-5 /hpf (0-5)
[2016-10-17 22:36] VITALS: BP 161/90
== END 2016-10-17 22:50 | disposition home or self-care (01) ==
LOC: ER 19:04
DX: S70.01XA Contusion of right hip, initial encounter (principal); W19.XXXA Unspecified fall, initial encounter; R10.2 Pelvic and perineal pain

== ENCOUNTER 2016-10-18 20:19 | Emergency (ER) | payer MEDICARE ==
[2016-10-18] MEDS ORDERED: traMADol HCL 50 MG TABLET PO ONE (20:49)
[2016-10-18] MEDS ORDERED: traMADol HCL 50 MG TABLET ONE (20:51)
--- NOTE | 2016-10-18 20:52 | ERNOTE ---
Lower Extremity HPI - Immun/Allergies/Home Medications Immunizations: IMMUNIZATION HX Immunizations Up to Date Yes History of Influenza Vaccine Yes Hx Pneumococcal Vaccination Yes Allergies/Adverse Reactions: Allergies Allergy/AdvReac Type Severity Reaction Status Date / Time No Known Allergies Allergy Verified 10/18/16 20:31 Home Medications: HOME MEDICATIONS Aspirin 81 mg PO DAILY 10/18/15 [Last Taken 01/22/16 08:00] Calcium Carbonate/Vitamin D3 [Calcium 600-Vit D3 800 Tablet] 1 tab PO BID [Last Taken 01/21/16 17:00] Cholecalciferol (Vitamin D3) [Vitamin D3] 2,000 unit PO HS 10/18/15 [Last Taken 01/21/16 17:00] Cyanocobalamin [Vitamin B-12] 500 mcg PO DAILY 10/18/15 [Last Taken 01/22/16 08: 00] Levothyroxine Sodium [Synthroid] 50 mcg PO DAILY 10/18/15 [Last Taken 01/22/16 08:00] Memantine HCl [Namenda Xr] 28 mg PO DAILY 10/18/15 [Last Taken 01/21/16 17:00] Pravastatin Sodium [Pravachol] 20 mg PO DAILY 10/18/15 [Last Taken 01/22/16 08: 00] metFORMIN HCL [Glucophage] 1,000 mg PO BID 10/18/15 [Last Taken 01/22/16 08:00] Insulin Glargine,Hum.rec.anlog [Lantus] 5 units SC DAILY 10/14/16 [Last Taken Unknown] Donepezil HCl [Aricept] 10 mg PO HS 10/17/16 [Last Taken Unknown] Naproxen [Naprosyn] 375 mg PO BID 10/18/16 [Last Taken Unknown] traMADol HCL [Ultram] 50 mg PO DAILY #20 tablet 10/18/16 [Last Taken Unknown] - Patient's Past Medical History Patient History - Medical: Arthritis, Cataracts, Diabetes Type 2 Insulin Dependent, Dementia, Depression, Hypothyroidism, Osteoporosis Patient History - Cardiac/Respiratory: Hyperlipidemia Patient History - Cancer: No Hx of Cancer Patient History - Surgical Procedures: Other Patient History - Other: None - Family History Mother Family History - Medical: Family History - Cardiac/Respiratory: No pertinent hx Father Family History - Medical: Family History - Cardiac/Respiratory: CVA/Stroke - Social History Living Situations: [facility] Abuse History: No History of abuse Psych History: No pertinent hx Have you smoked in the past 12 months: No Do you dip or chew tobacco: No Alcohol Use: none Drug Use: none - Immunizations Immunizations Up to Date: Yes Hx Pneumococcal Vaccination: Yes History of Influenza Vaccine: Yes ED Progress - Vital Signs Vital Signs: Vital Signs 10/18/16 20:26 Pulse Rate 87 Respiratory 10 L Rate Blood Pressure 180/87 O2 Sat by Pulse 97 Oximetry - Progress/Reassessment Chief Complaint: Hip Pain/Injury Plan - Plan Plan: Xray does not reveal any fx Departure Clinical Impression: Fall Qualifiers: Encounter type: initial encounter Qualified Code(s): W19.XXXA - Unspecified fall, initial encounter - Departure Disposition: Home self-care Instructions: Fall Prevention in the Home, [id number] Additional Instructions: THIS PATIENT MUST AMBULATE WITH ASSISTANCE AT ALL TIMES. Prescriptions: traMADol HCL [Ultram] 50 mg PO DAILY #20 tablet
[2016-10-18 21:21] VITALS: BP 192/85
--- OUTSIDE RECORDS SUMMARY | 2016-10-18 21:29 | XMS REPORT | Continuity of Care Document ---
:1935 Author Organization [facility] ([facility]) Address [address] [place] [address] Phone [phone] Care Team Providers Name Role Phone Angela Echavarria Primary Care Provider [phone] Source Comments This disclosure is being made pursuant to the Care Everywhere program, applicable federal and state laws, and may not contain all informaitonavailable regarding this patient.[facility] ([facility]) Active Allergies and Adverse Reactions [...] Overview: S/p #19 Epic AVR CAD in [place] artery 12/18/2014 Overview: 2V CAD, unable to [...] Taken Blood Pressure 175/90 08/10/2016 11:15 PM EDI DEVELOPER Pulse 98 08/10/2016 9:49 PM EDI DEVELOPER Temperature 36 C (96.8 F) 08/10/2016 9:49 PM EDI DEVELOPER Respiratory Rate 18 08/10/2016 9:49 PM EDI DEVELOPER Height 1.575 m (5' 2") 08/05/2016 2:00 PM EDI DEVELOPER Weight 52.617 kg (116 lb) 08/05/2016 2:00 PM EDI DEVELOPER Body Mass Index 21.21 08/05/2016 2:00 PM EDI DEVELOPER Oxygen Saturation 98% 08/10/2016 11:15 PM EDI DEVELOPER Plan of Care Date Type Specialty Providers Description 02/04/2017 Appointment Neurology Leo Mesa MD [address] [place] [address] [phone] (Fax) Chief Comp: Patient Jamey Napier MD [address] [place] [address] [phone] (Fax) Reported Reason For Visit 04/21/2017 Appointment Heart and Vascular Carlos Zepeda, Chief Comp: Patient MD Reported Reason For [address] [place] [address] [phone] (Fax) Health Maintenance Due Date Last Done [...]
== END 2016-10-18 21:25 | disposition home or self-care (01) ==
LOC: ER 20:19
DX: M25.552 Pain in left hip (principal); W19.XXXA Unspecified fall, initial encounter; Z91.81 History of falling; Y93.9 Activity, unspecified; Y92.9 Unspecified place or not applicable

== ENCOUNTER 2016-10-20 14:51 | Observation (INO) | payer MEDICARE ==
--- OUTSIDE RECORDS SUMMARY | 2016-10-20 14:55 | XMS REPORT | Continuity of Care Document ---
:1935 Author Organization [facility] ([facility]) Address [address] [place] [address] Phone [phone] Care Team Providers Name Role Phone Angela Echavarria Primary Care Provider [phone] Source Comments This disclosure is being made pursuant to the Care Everywhere program, applicable federal and state laws, and may not contain all informaitonavailable regarding this patient.[facility] ([facility]) Active Allergies and Adverse Reactions No [...] Overview: S/p #19 Epic AVR CAD in [place] artery 12/18/2014 Overview: 2V CAD, unable to [...] Taken Blood Pressure 175/90 08/10/2016 11:15 PM MARKETING INSTRUCTOR Pulse 98 08/10/2016 9:49 PM MARKETING INSTRUCTOR Temperature 36 C (96.8 F) 08/10/2016 9:49 PM MARKETING INSTRUCTOR Respiratory Rate 18 08/10/2016 9:49 PM MARKETING INSTRUCTOR Height 1.575 m (5' 2") 08/05/2016 2:00 PM MARKETING INSTRUCTOR Weight 52.617 kg (116 lb) 08/05/2016 2:00 PM MARKETING INSTRUCTOR Body Mass Index 21.21 08/05/2016 2:00 PM MARKETING INSTRUCTOR Oxygen Saturation 98% 08/10/2016 11:15 PM MARKETING INSTRUCTOR Plan of Care Date Type Specialty Providers Description 02/04/2017 Appointment Neurology Leo Mesa MD [address] [place] [address] [phone] (Fax) Chief Comp: Patient Jamey Napier MD [address] [place] [address] [phone] (Fax) Reported Reason For Visit 04/21/2017 Appointment Heart and Vascular Carlos Zepeda, Chief Comp: Patient MD Reported Reason For [address] [place] [address] [phone] (Fax) Health Maintenance Due Date Last Done [...]
[2016-10-20] MEDS ORDERED: ACETAMINOPHEN 325 MG TABLET PO PRN (14:57)
[2016-10-20] MEDS ORDERED: HYDROcodone/ACETAMINOPHEN 1 EACH TABLET PO PRN (16:15)
[2016-10-20] MEDS ORDERED: MORPHINE SULFATE 2 MG/ML DISP.SYRIN IV PRN (16:15)
[2016-10-20] MEDS ORDERED: ONDANSETRON HCL/PF 2 MG/ML VIAL IV PRN (16:15)
[2016-10-20 16:18] LABS: Anion Gap 17.9 mmol/L (6.8-13.8); BUN/Creatinine Ratio 16.3 (9.0-21.6); Blood Urea Nitrogen 16 mg/dL (3-23); Calcium * 9.9 mg/dL (7.9-10.9); Carbon Dioxide 24.5 mmol/L (24-32.6); Chloride 94 mmol/L (97-106); Glucose * 220 mg/dL (70-110); Potassium 4.4 mmol/L (3.4-4.6); Sodium 132 mmol/L (132-142)
[2016-10-20 16:30] LABS: Urine Bilirubin 1 mg/dl (NEGATIVE); Urine Blood Negative /ul (NEGATIVE); Urine Ketone 15 mg/dL (NEGATIVE); Urine Nitrite Negative (NEGATIVE); Urine Protein 15 mg/dL (NEGATIVE); Urine Specific Gravity >=1.030 SP.GR. (1.005-1.010)
[2016-10-20 16:37] LABS: Urine Appearance Clear; Urine Bacteria TRACE; Urine Color Yellow; Urine RBC None Seen /hpf (0-5); Urine WBC TRACE /hpf (0-5)
--- NOTE | 2016-10-20 16:39 | HP ---
Chief Complaint - Chief Complaint Date of Service: 10/20/16 Time of Service: 16:38 Chief Complaint: Left hip pain History of Present Illness: The patient is an 81-year-old female who presented to my office in clinic earlier today for a follow-up visit from the emergency department. The HPI is essentially entirely obtained from the patient's daughter who is present with her at the appointment today due to the patient's underlying dementia. On 10/12, the patient went to breakfast and had a mechanical fall. She was evaluated by the staff at the [facility] and everything seemed to be okay. However on October 14 she started "not acting right" and she was not bearing any weight on her left leg so she was taken to the emergency department for further evaluation. The daughter states they were told that everything was okay and she was discharged back to the [facility]. On 10/17/2016, she was again found to be "not acting right" and was now having a hard time moving her right leg. She was also continuing to complain of pain in her left leg and was not able to bear weight on that leg. She was requiring at least a 2 person assist for transfers. She ended up going back to the emergency department for further evaluation and was again discharged back to the [facility] and told everything was okay per the daughter. Then on 10/18/2016 she had a fall around 7 or 7:30 PM while getting ready for bed. She went to sit on the side of the bed but missed the edge of the bed and slipped down to the floor. She continued to complain of left hip pain. She was again brought to the emergency department and the daughter reports that it was the "fastest ER trip ever" and they were told everything was fine and she was discharged back to the [facility]. I had no knowledge of the patient being in the emergency department 3 times until she presented to my clinic for follow-up. At that time I reviewed her most recent left hip and pelvis x-ray from 10/18/2016 and radiologist reported a questionable nondisplaced fracture involving the superior aspect of the greater trochanter and follow-up CT scan was recommended. There was no follow-up CT scan that was completed. The patient will be admitted observation status and we will obtain a CT without contrast of the left hip. - Patient's Past Medical History Patient History - Medical: Arthritis, Cataracts, Diabetes Type 2 Insulin Dependent, Dementia, Depression, Hypothyroidism, Osteoporosis, Renal Disease Patient History - Cardiac/Respiratory: Hypertension, Hyperlipidemia Patient History - Cancer: No Hx of Cancer Patient History - Surgical Procedures: T & A, Other Patient History - Other: None LMP (females 10-50): Menopausal - Family History Mother Family History - Medical: Family History - Cardiac/Respiratory: No pertinent hx Family History - Cancer: No pertinent family hx Father Family History - Medical: , Diabetes Type 2 Family History - Cardiac/Respiratory: CVA/Stroke Family History - Cancer: No pertinent family hx Brother Family History - Medical: , Diabetes Type 2 Family History - Cardiac/Respiratory: No pertinent hx Family History - Cancer: No pertinent family hx - Social History Living Situations: assisted living Abuse History: No History of abuse Psych History: No pertinent hx Smoking Status: Never smoker Have you smoked in the past 12 months: No Do you dip or chew tobacco: No Alcohol Use: none Drug Use: none - Immunizations Immunizations Up to Date: Yes Hx Pneumococcal Vaccination: Yes History of Influenza Vaccine: Yes Review Of Systems (GEN) - Review of Systems Generalized/Overall Review: Present: Weakness, Fatigue EENTM: Present: No Symptoms Reported Respiratory: Present: No Symptoms Reported Cardiac: Present: No Symptoms Reported Abdominal: Present: No Symptoms Reported Genitourinary: Present: No Symptoms Reported Musculoskeletal: Present: Joint Pain - Left hip and leg pain Neurological: Present: No Symptoms Reported Skin: Present: No Symptoms Reported Endocrine: Present: No Symptoms Reported Misc: All systems neg except as marked Immunizations: IMMUNIZATION HX Immunizations Up to Date Yes History of Influenza Vaccine Yes Hx Pneumococcal Vaccination Yes Allergies/Adverse Reactions: Allergies Allergy/AdvReac Type Severity Reaction Status Date / Time tramadol AdvReac Nausea Verified 10/20/16 15:16 Home Medications: HOME MEDICATIONS Aspirin [Aspirin EC] 81 mg PO DAILY 10/20/16 [Last Taken Unknown] Calcium Carbonate [Calcium] 500 mg PO DAILY 10/20/16 [Last Taken Unknown] Calcium Carbonate/Vitamin D3 [Calcium 500-Vit D3 600 Tablet] 1 each PO BID 10/20 [Last Taken Unknown] Carbamide Peroxide [Debrox] 5 drop RIGHT EAR BID 10/20/16 [Last Taken Unknown] Cholecalciferol (Vitamin D3) [Vitamin D] 2,000 unit PO DAILY 10/20/16 [Last Taken Unknown] Cyanocobalamin (Vitamin B-12) [Vitamin B12] 1,000 mcg PO DAILY 10/20/16 [Last Taken Unknown] Denosumab [Prolia] 1 ml SC Q6M 10/20/16 [Last Taken Unknown] Insulin Glargine,Hum.rec.anlog [Lantus] 5 units SC DAILY 10/20/16 [Last Taken Unknown] Levothyroxine Sodium [Synthroid] 50 mcg PO DAILY 10/20/16 [Last Taken Unknown] Memantine HCl [Namenda Xr] 28 mg PO DAILY 10/20/16 [Last Taken Unknown] Ondansetron [Zofran Odt] 4 mg PO Q4H PRN 10/20/16 [Last Taken Unknown] Pravastatin Sodium [Pravachol] 20 mg PO DAILY 10/20/16 [Last Taken Unknown] metFORMIN HCL [Metformin HCl ER] 1,000 mg PO BIDWM 10/20/16 [Last Taken Unknown] Exam - Exam Vital Signs: Vital Signs - Last Taken Temp 36.9 C 10/20/16 16:27 Pulse 87 10/20/16 16:27 Resp 18 10/20/16 16:27 BP 149/52 10/20/16 16:27 Pulse Ox 98 10/20/16 16:27 Constitutional: Present: Alert, Elderly, Thin and frail ENT Exam: Present: hard of hearing, moist mucous membranes Eye Exam: bilateral eye: normal inspection, EOMI Neck: Present: non-tender Back Exam: Present: normal inspection, no CVA tenderness, no vertebral tenderness Respiratory: Present: lungs clear, normal breath sounds, no respiratory distress , no accessory muscle use Cardiovascular/Chest: Present: regular rate, rhythm, no edema, systolic murmur Abdomen: Present: soft, nontender, nondistended Extremity: Present: no pedal edema, no calf tenderness, other - Left hip pain with decreased ROM secondary to pain Skin Exam: Present: normal color, warm/dry Neurologic: Present: alert, other - Dementia at baseline Appearance: Present: impaired insight, impaired recent memory, impaired remote memory Diagnostic Studies: Abnormal Lab Results 10/20/16 10/20/16 Range/Units 15:45 16:25 Chloride 94 L (97-106) mmol/L Anion Gap 17.9 H (6.8-13.8) mmol/L Est GFR (Non-Af Amer) 58 L (60-130) mL/min Random Glucose 220 H (70-110) mg/dL Urine Protein 15 H (NEGATIVE) mg/dL Urine Bilirubin 1 H (NEGATIVE) mg/dl Urine Urobilinogen 2.0 H (NORMAL) EU/dl Urine WBC Trace H (0-5) /hpf Ur Epithelial Cells 5-10 H (0-5) /hpf Laboratory Results Sodium 132 mmol/L (132-142) 10/20/16 15:45 Plasma Sodium 134 mmol/L (130-142) 10/20/16 15:45 Potassium 4.4 mmol/L (3.4-4.6) 10/20/16 15:45 Chloride 94 mmol/L (97-106) L 10/20/16 15:45 Carbon Dioxide 24.5 mmol/L (24-32.6) 10/20/16 15:45 Anion Gap 17.9 mmol/L (6.8-13.8) H 10/20/16 15:45 BUN 16 mg/dL (3-23) D 10/20/16 15:45 Creatinine 0.98 mg/dL (0.4-1.4) 10/20/16 15:45 Est GFR (Non-Af Amer) 58 mL/min (60-130) L 10/20/16 15:45 BUN/Creatinine Ratio 16.3 (9.0-21.6) 10/20/16 15:45 Random Glucose 220 mg/dL (70-110) H 10/20/16 15:45 Calcium 9.9 mg/dL (7.9-10.9) 10/20/16 15:45 Urine Color Yellow 10/20/16 16:25 Urine Appearance Clear 10/20/16 16:25 Urine pH 6.0 pH (5.0-7.0) 10/20/16 16:25 Ur Specific [place] >=1.030 SP.GR. (1.005-1.010) 10/20/16 16:25 Urine Protein 15 mg/dL (NEGATIVE) H 10/20/16 16:25 Urine Glucose (UA) Negative mg/dL (NEGATIVE) 10/20/16 16:25 Urine Ketones 15 mg/dL (NEGATIVE) 10/20/16 16:25 Urine Blood Negative /ul (NEGATIVE) 10/20/16 16:25 Urine Nitrate Negative (NEGATIVE) 10/20/16 16:25 Urine Bilirubin 1 mg/dl (NEGATIVE) H 10/20/16 16:25 Urine Ictotest Negative (NEGATIVE) 10/20/16 16:25 Prot Sulfosalicylic Acd Negative mg/dL (0) 10/20/16 16:25 Urine Urobilinogen 2.0 EU/dl (NORMAL) H 10/20/16 16:25 Ur Leukocyte Esterase Negative /ul (NEGATIVE) 10/20/16 16:25 Urine RBC None seen /hpf (0-5) 10/20/16 16:25 Urine WBC Trace /hpf (0-5) H 10/20/16 16:25 Ur Epithelial Cells 5-10 /hpf (0-5) H 10/20/16 16:25 Urine Bacteria Trace (NONE) 10/20/16 16:25 Urine Culture Comments No culture indicated 10/20/16 16:25 Assessment/Plan - Narrative Narrative: Patient admitted to [facility], observation status. CT without contrast of the left hip ordered. Pain control as needed. Dr. Schwab consulted. PT evaluation in a.m. Await recommendations from both Dr. Schwab as well as physical therapy. - Assessment/Plan (1) Left hip pain Problem: Acute (2) Fracture of greater trochanter of left femur Problem: Acute
[2016-10-20] MEDS: INSULIN LISPRO 100 UNITS/ML VIAL SC SCH (16:44)
[2016-10-20] MEDS ORDERED: ENOXAPARIN SODIUM 40 MG/0.4 ML SYRG SC SCH (17:00)
[2016-10-20] MEDS: SENNOSIDES/DOCUSATE SODIUM 1 TAB TABLET PO SCH ×2 (22:17→22:26)
[2016-10-21] MEDS: INSULIN LISPRO 100 UNITS/ML VIAL SC SCH ×2 (07:16→11:41)
[2016-10-21 11:02] VITALS: BP 162/68
[2016-10-21] MEDS ORDERED: ONDANSETRON 4 MG TAB.RAPDIS PO PRN (11:25)
--- NOTE | 2016-10-21 11:25 | DS ---
(1) Left hip pain Problem: Acute (2) Fracture of greater trochanter of left femur Problem: Acute Qualifiers: Encounter type: initial encounter Fracture type: closed Qualified Code(s) : S72.112A - Displaced fracture of greater trochanter of left femur, initial encounter for closed fracture Description of Stay: ADMISSION DATE: 10.20.2016 DISCHARGE DATE: 10.21.2016 ADMISSION HPI: The patient is an 81-year-old female who presented to my office in clinic earlier today for a follow-up visit from the emergency department. The HPI is essentially entirely obtained from the patient's daughter who is present with her at the appointment today due to the patient's underlying dementia. On 10/12, the patient went to breakfast and had a mechanical fall. She was evaluated by the staff at the [facility] and everything seemed to be okay. However on October 14 she started "not acting right" and she was not bearing any weight on her left leg so she was taken to the emergency department for further evaluation. The daughter states they were told that everything was okay and she was discharged back to the [facility]. On 10/17/2016, she was again found to be "not acting right" and was now having a hard time moving her right leg. She was also continuing to complain of pain in her left leg and was not able to bear weight on that leg. She was requiring at least a 2 person assist for transfers. She ended up going back to the emergency department for further evaluation and was again discharged back to the [facility] and told everything was okay per the daughter. Then on 10/18/2016 she had a fall around 7 or 7:30 PM while getting ready for bed. She went to sit on the side of the bed but missed the edge of the bed and slipped down to the floor. She continued to complain of left hip pain. She was again brought to the emergency department and the daughter reports that it was the "fastest ER trip ever" and they were told everything was fine and she was discharged back to the [facility]. I had no knowledge of the patient being in the emergency department 3 times until she presented to my clinic for follow-up. At that time I reviewed her most recent left hip and pelvis x-ray from 10/18/2016 and radiologist reported a questionable nondisplaced fracture involving the superior aspect of the greater trochanter and follow-up CT scan was recommended. There was no follow-up CT scan that was completed. The patient will be admitted observation status and we will obtain a CT without contrast of the left hip. HOSPITAL COURSE: The patient was admitted to the hospital for left hip pain it is CT that was completed on admission revealed a fracture of the greater trochanter of the proximal left femur. Dr. Schwab was consulted for further recommendations. Per Dr. Schwab, the patient can be weight bearing as tolerated and there is no surgical intervention necessary at this time. The patients hospital course was uneventful and she was discharged back to the [facility] where she will continue ongoing physical therapy evaluation and treatment. FOLLOW-UP APPOINTMENTS: PCP, Dr. Echavarria, within 1-[address] Schwab in 3-4 weeks with x-rays if patient needs or wants to NEW OR CHANGED MEDICATIONS: NONE DISCONTINUED MEDICATIONS: NONE RADIOLOGY: CT left hip without contrast on 10/20/2016 showed: comminuted, mildly displaced fracture of the greater trochanter of the proximal left femur. Procedures Performed: none Discharge Disposition: [facility] with [facility] Disposition: [facility] self-care Condition: Stable Discharge Activity: Activity as tolerated Discharge Diet: Resume usual diet Half-Way Therapy: Physicial Therapy Additional Patient Instructions (free text): Follow-up with PCP, Dr. Echavarria, within 1-2 weeks on 10-29-16 @ 9:00am. [facility]. Please call report and fax orders and face to face. Complete Home Medications List: Complete Home Medication List: Aspirin [Aspirin EC] 81 mg PO DAILY 10/20/16 Calcium Carbonate [Calcium] 500 mg PO DAILY 10/20/16 Calcium Carbonate/Vitamin D3 [Calcium 500-Vit D3 600 Tablet] 1 each PO BID 10/20 Carbamide Peroxide [Debrox] 5 drop RIGHT EAR BID 10/20/16 Cholecalciferol (Vitamin D3) [Vitamin D3] 2,000 unit PO DAILY 10/20/16 Cyanocobalamin (Vitamin B-12) [Vitamin B12] 1,000 mcg PO DAILY 10/20/16 Denosumab [Prolia] 1 ml SC Q6M 10/20/16 Insulin Glargine,Hum.rec.anlog [Lantus] 5 units SC DAILY 10/20/16 Levothyroxine Sodium [Synthroid] 50 mcg PO DAILY 10/20/16 Memantine HCl [Namenda Xr] 28 mg PO DAILY 10/20/16 Ondansetron [Zofran Odt] 4 mg PO Q4H PRN 10/20/16 Pravastatin Sodium [Pravachol] 20 mg PO DAILY 10/20/16 Acetaminophen [Tylenol] 650 mg PO Q4H PRN #50 tablet 10/21/16 metFORMIN HCL [Glucophage] 1,000 mg PO BIDWM 10/21/16
[2016-10-21] MEDS: DENOSUMAB SC SCH ×5 (11:47→12:13)
--- NOTE | 2016-10-21 14:20 | CONS ---
[facility] - General Date of Service: 10/21/16 Narrative: Mr. Horner is an 81-year-old female who has had prior falls and ongoing hip pain. She been evaluated with radiographs which did not show any acute pathology however more recently she started noticing more pain and difficulty weightbearing. She is brought to the emergency department at [facility] which were negative but admitted for care and was found to have a comminuted nondisplaced posterior aspect of the greater trochanter of the left hip fracture found on CT. She denies any other areas of pain other than chronic right leg "not cooperating"as her family member states. It appears that she has difficulty moving this occasionally but does not have any significant mechanical reason for this. Source: patient, family - History of Present Illness Timing/Duration: 1 week Severity: mild Modifying Factors - (Worsens): Reports: movement Modifying Factors - (Improves): Reports: immobilization, rest Associated Symptoms: denies symptoms Allergies/Adverse Reactions: Allergies tramadol Adverse Reaction (Verified 10/20/16 15:16) Nausea Home Medications: Home Medications Medication Instructions Recorded Last Taken Aspirin [Aspirin EC] 81 mg PO DAILY 10/20/16 Unknown Calcium Carbonate [Calcium] 500 mg PO DAILY 10/20/16 Unknown Calcium Carbonate/Vitamin D3 1 each PO BID 10/20/16 Unknown [Calcium 500-Vit D3 600 Tablet] Carbamide Peroxide [Debrox] 5 drop RIGHT EAR BID 10/20/16 Unknown Cholecalciferol (Vitamin D3) 2,000 unit PO DAILY 10/20/16 Unknown [Vitamin D3] Cyanocobalamin (Vitamin B-12) 1,000 mcg PO DAILY 10/20/16 Unknown [Vitamin B12] Denosumab [Prolia] 1 ml SC Q6M 10/20/16 Unknown Insulin Glargine,Hum.rec.anlog 5 units SC DAILY 10/20/16 Unknown [Lantus] Levothyroxine Sodium [Synthroid] 50 mcg PO DAILY 10/20/16 Unknown Memantine HCl [Namenda Xr] 28 mg PO DAILY 10/20/16 Unknown Ondansetron [Zofran Odt] 4 mg PO Q4H PRN 10/20/16 Unknown Pravastatin Sodium [Pravachol] 20 mg PO DAILY 10/20/16 Unknown metFORMIN HCL [Glucophage] 1,000 mg PO BIDWM 10/21/16 Unknown - Patient's Past Medical History Patient History - Medical: Arthritis, Cataracts, Diabetes Type 2 Insulin Dependent, Dementia, Depression, Hypothyroidism, Osteoporosis, Renal Disease Patient History - Cardiac/Respiratory: Hypertension, Hyperlipidemia Patient History - Cancer: No Hx of Cancer Patient History - Surgical Procedures: T & A, Other Patient History - Other: None LMP (females 10-50): Menopausal - Family History Mother Family History - Medical: Family History - Cardiac/Respiratory: No pertinent hx Family History - Cancer: No pertinent family hx Father Family History - Medical: , Diabetes Type 2 Family History - Cardiac/Respiratory: CVA/Stroke Family History - Cancer: No pertinent family hx Brother Family History - Medical: , Diabetes Type 2 Family History - Cardiac/Respiratory: No pertinent hx Family History - Cancer: No pertinent family hx - Social History Living Situations: assisted living Abuse History: No History of abuse Psych History: No pertinent hx Smoking Status: Never smoker Have you smoked in the past 12 months: No Do you dip or chew tobacco: No Alcohol Use: none Drug Use: none - Immunizations Immunizations Up to Date: Yes Hx Pneumococcal Vaccination: Yes History of Influenza Vaccine: Yes Procedures APPLICATION OF SPLINT (09/04/14) ASPIRATION SKIN & SUBQ (06/17/11) CATARAC PHACOEMULS/ASPIR (04/01/99) INSERT LENS AT CATAR EXT (04/01/99) LARYGNOSCOPY AND OTH TRACHEOSCOPY (06/11/11) MEASURE OF ARTERIAL SATURATION, PERIPHERAL, PERC APPROACH (05/06/16) OPEN RED-INT FIX HUMERUS (06/11/11) REPAIR FACE SUBCUTANEOUS TISSUE AND FASCIA, OPEN APPROACH (08/10/16) Medications - Medications Current Medications: Current Medications Acetaminophen/Hydrocodone Bitart ([place] 5-325) 1 each PO Q3H PRN PRN Reason: Moderate Pain Stop: 11/19/16 16:16 Last Admin: 10/20/16 22:25 Dose: 1 each Enoxaparin Sodium (Lovenox) 40 mg SC Q24H COLE Stop: 11/19/16 17:01 Last Admin: 10/20/16 16:43 Dose: 40 mg Insulin Human Lispro (Humalog) 0 units SC ACINS COLE PRN Reason: Protocol Stop: 11/19/16 17:01 Last Admin: 10/21/16 11:41 Dose: 4 units Senna/Docusate Sodium (Senokot-S) 2 tab PO HS COLE Stop: 11/19/16 21:01 Last Admin: 10/20/16 22:26 Dose: 2 tab Physical Examination - Exam Narrative: Left hip: Ecchymosis over the lateral aspect of the hip. Tenderness to palpation of the greater trochanter. No significant pain with hip range of motion. Sensation is intact light touch to lower leg. Palpable dorsalis pedis pulse. No gross deformity or shortening of the extremity. Vital Signs: Vital Signs - Last Taken Temp 36.8 C 10/21/16 11:00 Pulse 68 10/21/16 11:00 Resp 18 10/21/16 11:00 BP 162/68 10/21/16 11:00 Pulse Ox 98 10/21/16 11:00 O2 Oxygen Delivery Method Room Air - Results and Findings: Narrative: AP pelvis 2 views of left hip, CT of left hip: Notable decreased bone density, no advanced signs of arthrosis in the left hip, no pelvic fracture, posterior superior greater trochanter fracture with no significant displacement somewhat visualized on x-ray but more clear on CT. No appreciable femoral neck or extension into the intertrochanteric region Lab/Microbiology results last 24 hrs: Abnormal/Pending Laboratory Last 24 HRS 10/20/16 10/20/16 16:25 15:45 Chloride 94 L Anion Gap 17.9 H Est GFR (Non-Af Amer) 58 L Random Glucose 220 H Urine Protein 15 H Urine Bilirubin 1 H Urine Urobilinogen 2.0 H Urine WBC Trace H Ur Epithelial Cells 5-10 H - Assessments/Findings (1) Fracture of greater trochanter of left femur Diagnosis(s): I discussed this patient with Dr. Echavarria. She can be weightbearing as tolerated and self protect using a walker or crutch or cane. There is no surgical intervention indicated at this time. She can follow myself approximately 3-4 weeks with x-rays if she needs or wants to. She can work with PT and be weightbearing as tolerated and from an orthopedic standpoint is fine to be discharged once ready Problem: Acute Qualifiers: Encounter type: initial encounter Fracture type: closed Qualified Code(s) : S72.112A - Displaced fracture of greater trochanter of left femur, initial encounter for closed fracture
[2016-10-21] MEDS ORDERED: SIMVASTATIN 10 MG TABLET PO SCH (21:00)
[2016-10-21] MEDS ORDERED: CARBAMIDE PEROXIDE 150 DROP BTL RIGHT EAR SCH (21:00)
[2016-10-21] MEDS ORDERED: CALCIUM CARBONATE/VITAMIN D3 1 TAB TABLET PO SCH (21:00)
[2016-10-22] MEDS ORDERED: LEVOTHYROXINE SODIUM 50 MCG TABLET PO SCH (07:00)
[2016-10-22] MEDS ORDERED: CALCIUM CARBONATE 500 MG TAB.CHEW PO SCH (09:00)
[2016-10-22] MEDS ORDERED: MEMANTINE HCL 28 MG PO SCH (09:00)
[2016-10-22] MEDS ORDERED: INSULIN GLARGINE,HUM.REC.ANLOG 100 UNITS/ML VIAL SC SCH (09:00)
[2016-10-22] MEDS ORDERED: ASPIRIN 81 MG TABLET.DR PO SCH (09:00)
[2016-10-22] MEDS ORDERED: CYANOCOBALAMIN 1,000 MCG TABLET PO SCH (09:00)
[2016-10-22] MEDS ORDERED: CHOLECALCIFEROL 1,000 UNIT CAPSULE PO SCH (09:00)
== END 2016-10-21 15:35 | disposition home or self-care (01) ==
LOC: MS 14:51
PROVIDERS: ADMIT Internal Medicine; ATTEND Internal Medicine
DX: S72.112A Displaced fracture of greater trochanter of left femur, initial encounter for closed fracture (principal); E11.9 Type 2 diabetes mellitus without complications; Z79.4 Long term (current) use of insulin; E03.9 Hypothyroidism, unspecified; I10 Essential (primary) hypertension; E78.5 Hyperlipidemia, unspecified; M19.90 Unspecified osteoarthritis, unspecified site; F03.90 Unspecified dementia, unspecified severity, without behavioral disturbance, psychotic disturbance, mood disturbance, and anxiety; F32.9 Major depressive disorder, single episode, unspecified
CPT/HCPCS: 36415; 73700; 80048; 81001; 87081; 96372; 97161; 97165; G0378; G0379; G8978; G8979; G8980; G8987; G8988; G8989

== ENCOUNTER 2017-01-15 07:38 | Emergency (ER) | payer MEDICARE ==
--- NOTE | 2017-01-15 08:49 | ERNOTE ---
Trauma/Assault HPI - General Stated Complaint: FALL, BRUISED FACE Time Seen by Provider: 01/15/17 08:20 Source: family - patient has severe dementia she does not speak however the daughter is at the patient's bedside and gives a report Exam Limitations: clinical condition, dementia, other - history is per daughter patient does not speak she also does not feel pain very well according to daughter fall was not witnessed however the jail staff heard the fall. - Immun/Allergies/Home Medications Immunizations: IMMUNIZATION HX Immunizations Up to Date Yes History of Influenza Vaccine Yes Hx Pneumococcal Vaccination Yes Allergies/Adverse Reactions: Allergies tramadol Adverse Reaction (Verified 01/15/17 07:45) Nausea Home Medications: HOME MEDICATIONS Aspirin [Aspirin EC] 81 mg PO DAILY 10/20/16 [Last Taken Unknown] Calcium Carbonate/Vitamin D3 [Calcium 500-Vit D3 600 Tablet] 1 each PO BID 10/20 [Last Taken Unknown] Cholecalciferol (Vitamin D3) [Vitamin D3] 2,000 unit PO DAILY 10/20/16 [Last Taken Unknown] Cyanocobalamin (Vitamin B-12) [Vitamin B12] 1,000 mcg PO DAILY 10/20/16 [Last Taken Unknown] Insulin Glargine,Hum.rec.anlog [Lantus] 5 units SC DAILY 10/20/16 [Last Taken Unknown] Levothyroxine Sodium [Synthroid] 50 mcg PO DAILY 10/20/16 [Last Taken Unknown] Memantine HCl [Namenda Xr] 28 mg PO DAILY 10/20/16 [Last Taken Unknown] Pravastatin Sodium [Pravachol] 20 mg PO DAILY 10/20/16 [Last Taken Unknown] metFORMIN HCL [Glucophage] 1,000 mg PO BIDWM 10/21/16 [Last Taken Unknown] Acetaminophen [Tylenol] 650 mg PO QID PRN 01/15/17 [Last Taken Unknown] Donepezil HCl [Aricept] 10 mg PO HS 01/15/17 [Last Taken Unknown] Naproxen [EC-Naprosyn] 500 mg PO BID PRN 01/15/17 [Last Taken Unknown] - History of Present Illness Narrative: This is an 81-year-old female with a history of dementia who apparently had a fall at the [facility] this morning. She comes in with a left supraorbital swelling and ecchymosis. She is not speaking but she is awake and her vitals are stable. Daughter is also concerned that her mother has not been eating very well. There is no history of fevers or chills patient has had some nausea and loose stools. No history of melanotic stools or bleeding either through hematemesis or hematochezia and has had no abdominal pain Review of Systems - Narrative Narrative: I am unable to evaluate this patient for review of system as she has moderate to severe dementia and noncommunicative - Patient's Past Medical History Patient History - Medical: Arthritis, Cataracts, Diabetes Type 2 Insulin Dependent, Dementia, Depression, Hypothyroidism, Osteoporosis, Renal Disease Patient History - Cardiac/Respiratory: Hypertension, Hyperlipidemia Patient History - Cancer: No Hx of Cancer Patient History - Surgical Procedures: T & A, Other Patient History - Other: None - Family History Mother Family History - Medical: Family History - Cardiac/Respiratory: No pertinent hx Family History - Cancer: No pertinent family hx Father Family History - Medical: , Diabetes Type 2 Family History - Cardiac/Respiratory: CVA/Stroke Family History - Cancer: No pertinent family hx Brother Family History - Medical: , Diabetes Type 2 Family History - Cardiac/Respiratory: No pertinent hx Family History - Cancer: No pertinent family hx - Social History Living Situations: assisted living Abuse History: No History of abuse Psych History: No pertinent hx Alcohol Use: none Drug Use: none - Immunizations Immunizations Up to Date: Yes Hx Pneumococcal Vaccination: Yes History of Influenza Vaccine: Yes Physical Exam - Physical Exam General Appearance: Present: other - patient appears thin and pale Head Exam: Present: other - there is a large area of swelling and ecchymosis in the supraorbital area of the patient's left forehead Eye Exam: Normal inspection: bilateral, PERRL: bilateral, EOMI: bilateral Ears, Nose, Throat: Present: normal ENT inspection Neck: Present: normal inspection, nontender Respiratory: Present: no respiratory distress, normal breath sounds, no accessory muscle use, chest nontender, lungs clear Cardiovascular/Chest: Present: regular rate, rhythm, no murmur, normal peripheral pulses Gastrointestinal/Abdominal: Present: normal bowel sounds, nontender, nondistended, soft, no organomegaly Extremity Exam: Present: normal inspection - inspection is normal patient does not comply for range of motion however there appears to be no anomalies visible to this examiner Neurological Exam: Present: other - patient has dementia and is noncommunicative Skin Exam: Present: normal color, warm/dry ED Progress - Results and Orders Patient's Lab Results:: I have reviewed the patient's lab results. - Vital Signs Patient's Vital Signs:: I have reviewed the patient's vital signs. Vital Signs: Vital Signs 01/15/17 07:45 Temperature 36.1 C L Pulse Rate 97 Respiratory 12 Rate Blood Pressure 125/46 O2 Sat by Pulse 98 Oximetry - CT/Ultrasound CT/Ultrasound Narrative: CT of head and neck and facial bones are reviewed by this examiner as read by the radiologist. - Progress/Reassessment Chief Complaint: Fall Plan - Plan Plan: This patient's CT scan of the head and neck is within normal limits there are no fractures. Patient has ecchymosis of the left superior orbital ridge area. Her urinalysis is within normal limits her white count is slightly elevated. She will be given IV fluids will be treated for pain and sent home to follow-up with her primary care doctor dietary support was suggested Departure Clinical Impression: Contusion of forehead - Departure Disposition: Home self-care Condition: Good Instructions: Eye Contusion, [id number], Contusion, [id number] Additional Instructions: It is extremely important for this patient to ambulate with assistance [facility] at the jail. Referrals: Angela Echavarria DO [Primary Care Provider] -
[2017-01-15 09:11] LABS: Hematocrit 42.8 % (37.0-47.0); Hemoglobin 14.8 gm/dL (12.5-16.0); Mean Cell Volume 90.7 fl (78-100); Mean Corpuscular Hemoglobin 31.4 pg (27-31); Mean Corpuscular Hgb Conc 34.6 g/dl (32-36); Mean Platelet Volume 9.2 fl (6.0-9.5); Platelet Count 314 K/mm3 (150-450); Red Blood Count 4.72 M/mm3 (4.2-5.4); Red Cell Distribution Width 13.9 % (11.5-14.0); White Blood Count 12.7 K/mm3 (4.0-10.5)
[2017-01-15] MEDS ORDERED: ONDANSETRON HCL/PF 2 MG/ML VIAL IM ONE (09:21)
[2017-01-15] MEDS ORDERED: NORMAL SALINE 500 ML IV ONE (09:22)
[2017-01-15] MEDS ORDERED: ONDANSETRON HCL/PF 2 MG/ML VIAL ONE (09:22)
[2017-01-15 09:25] LABS: Total Cells Counted 100
[2017-01-15 09:32] LABS: Albumin * 3.9 gm/dl (3.4-5.0); Anion Gap 17.9 mmol/L (6.8-13.8); BUN/Creatinine Ratio 11.8 (9.0-21.6); Bilirubin, Total 1.1 mg/dL (0.0-1.1); Ca. Corrected For Albumin 8.9 mg/dL (8.4-10.2); Calcium * 9.1 mg/dL (7.9-10.9); Carbon Dioxide 26.5 mmol/L (24-32.6); Potassium 4.4 mmol/L (3.4-4.6)
[2017-01-15] MEDS ORDERED: ONDANSETRON HCL/PF 2 MG/ML VIAL IV ONE (09:41)
[2017-01-15 09:42] LABS: Atypical (Reactive) Lymph 3 % (0-2); Band 1 % (0-2.0); Lymphocyte 4 % (20-51); Monocyte 5 % (0-9); Neutrophil 87 % (42-75)
[2017-01-15 09:43] LABS: Platelet Estimate Normal (NORMAL); RBC Morphology Normal (NORMAL)
[2017-01-15 10:13] LABS: Urine Bilirubin Negative (NEGATIVE); Urine Blood Negative /ul (NEGATIVE); Urine Ketone 15 mg/dL (NEGATIVE); Urine Nitrite Negative (NEGATIVE); Urine Protein Negative (NEGATIVE); Urine Specific Gravity <=1.005 SP.GR. (1.005-1.010); Urine Urobilinogen Normal (NORMAL)
[2017-01-15 10:27] LABS: Urine Appearance Clear; Urine Bacteria None Seen; Urine Color Pale Yellow; Urine RBC None Seen /hpf (0-5); Urine WBC None Seen /hpf (0-5)
[2017-01-15] MEDS ORDERED: ACETAMINOPHEN 500 MG TABLET PO ONE (10:35)
[2017-01-15 10:41] VITALS: BP 112/80
== END 2017-01-15 10:45 | disposition home or self-care (01) ==
LOC: ER 07:38
DX: S00.83XA Contusion of other part of head, initial encounter (principal); W19.XXXA Unspecified fall, initial encounter; Y93.9 Activity, unspecified; Y92.129 Unspecified place in nursing home as the place of occurrence of the external cause; Y99.9 Unspecified external cause status; E11.8 Type 2 diabetes mellitus with unspecified complications; Z79.4 Long term (current) use of insulin; E03.9 Hypothyroidism, unspecified
CPT/HCPCS: 36415; 70450; 70486; 72125; 80053; 81001; 85025; 87086; 93005; 96374; 99284; J2405

== ENCOUNTER 2017-05-10 13:33 | Observation (INO) | payer MEDICARE ==
[2017-05-10 14:15] LABS: Urine Bilirubin Negative (NEGATIVE); Urine Ketone 15 mg/dL (NEGATIVE); Urine Protein Negative (NEGATIVE); Urine Specific Gravity <=1.005 SP.GR. (1.005-1.010); Urine Urobilinogen Normal (NORMAL); Urine pH 5.5 pH (5.0-7.0)
[2017-05-10 14:33] LABS: Hematocrit 39.5 % (37.0-47.0); Mean Cell Volume 94.7 fl (78-100); Mean Corpuscular Hemoglobin 31.2 pg (27-31); Mean Corpuscular Hgb Conc 32.9 g/dl (32-36); Mean Platelet Volume 11.3 fl (6.0-9.5); Neutrophil # 10.8 K/mm3 (1.3-6.0); Neutrophil % 85.3 % (42-75.0); Platelet Count 279 K/mm3 (150-450); Red Blood Count 4.17 M/mm3 (4.2-5.4); Red Cell Distribution Width 13.2 % (11.5-14.0); White Blood Count 12.7 K/mm3 (4.0-10.5)
[2017-05-10 14:34] LABS: Urine Appearance Slightly Cloudy; Urine Bacteria 3+; Urine Blood 5 /ul (NEGATIVE); Urine Color Yellow; Urine Nitrite Positive (NEGATIVE); Urine RBC TRACE /hpf (0-5); Urine WBC 0-5 /hpf (0-5)
[2017-05-10] MEDS ORDERED: NORMAL SALINE 1,000 ML IV ONE (14:48)
[2017-05-10 14:55] LABS: ALT 24 U/L (19-67); AST 21 U/L (0-48); Albumin * 4.4 gm/dl (3.4-5.0); Alkaline Phosphatase * 88 U/L (50-170); Anion Gap 14.7 mmol/L (6.8-13.8); BUN/Creatinine Ratio 12.7 (9.0-21.6); Bilirubin, Total 0.7 mg/dL (0.0-1.1); Blood Urea Nitrogen 16 mg/dL (3-23); Ca. Corrected For Albumin 9.2 mg/dL (8.4-10.2); Calcium * 9.8 mg/dL (7.9-10.9); Carbon Dioxide 28.5 mmol/L (24-32.6); Chloride 95 mmol/L (97-106); Potassium 4.2 mmol/L (3.4-4.6); Sodium 134 mmol/L (132-142); Total Protein 7.8 gm/dL (6.2-8.2)
--- NOTE | 2017-05-10 14:56 | ERNOTE ---
ER Female HPI Date of Service: 05/10/17 Stated Complaint: HIGH BLOOD SUGAR, DISORIENTED,FALL Presenting Symptoms: other - Confusion Time Seen by Provider: 05/10/17 14:09 Source: family, RN notes reviewed Exam Limitations: clinical condition Immunizations: IMMUNIZATION HX Immunizations Up to Date Yes History of Influenza Vaccine Yes Hx Pneumococcal Vaccination Yes Allergies/Adverse Reactions: Allergies tramadol Adverse Reaction (Verified 05/10/17 13:50) Nausea Home Medications: HOME MEDICATIONS Aspirin [Aspirin EC] 81 mg PO DAILY 10/20/16 [Last Taken Unknown] Calcium Carbonate/Vitamin D3 [Calcium 500-Vit D3 600 Tablet] 1 each PO BID 10/20 [Last Taken Unknown] Cholecalciferol (Vitamin D3) [Vitamin D3] 2,000 unit PO DAILY 10/20/16 [Last Taken Unknown] Cyanocobalamin (Vitamin B-12) [Vitamin B12] 1,000 mcg PO DAILY 10/20/16 [Last Taken Unknown] Insulin Glargine,Hum.rec.anlog [Lantus] 5 units SC DAILY 10/20/16 [Last Taken Unknown] Levothyroxine Sodium [Synthroid] 50 mcg PO DAILY 10/20/16 [Last Taken Unknown] Memantine HCl [Namenda Xr] 28 mg PO DAILY 10/20/16 [Last Taken Unknown] Pravastatin Sodium [Pravachol] 20 mg PO DAILY 10/20/16 [Last Taken Unknown] metFORMIN HCL [Glucophage] 1,000 mg PO BIDWM 10/21/16 [Last Taken Unknown] Acetaminophen [Tylenol] 650 mg PO QID PRN 01/15/17 [Last Taken Unknown] Donepezil HCl [Aricept] 10 mg PO HS 01/15/17 [Last Taken Unknown] Naproxen [EC-Naprosyn] 500 mg PO BID PRN 01/15/17 [Last Taken Unknown] - History of Present Illness Narrative: 82 year old female brought to the ED by her family from the [facility]. She has been noted to be confused for the past 5 days and was found on the floor this morning after a fall. A UA was ordered by her PCP, but she was then found to have a blood glucose over 600. She reports feeling weak and tired. She has been ambulating independently with a walker nearby if needed, but is unable to ambulate without assistance today. Date (Duration): 05/05/17 Timing: Present: getting worse Prior Abdominal Problems: Present: similar symptoms Prior Treatment: Absent: recently seen Review of Systems - Review of Systems Constitutional: Present: weakness, fatigue, malaise, decreased activity level. Absent: recent illness, fever EYE: Present: no symptoms reported ENT: Present: no symptoms reported Respiratory: Absent: shortness of breath, cough Cardiology: Absent: chest pain, edema Gastrointestinal/Abdominal: Absent: vomiting, diarrhea, abdominal pain Genitourinary: Present: frequency. Absent: dysuria Musculoskeletal: Absent: back pain, joint pain Skin: Absent: rash, lesions Neurological: Absent: headache, dizziness/light-headedness Endocrine: Present: no symptoms reported Hematologic/Lymphatic: Present: easy bruising, easy bleeding Psych: Present: no symptoms reported - Patient's Past Medical History Patient History - Medical: Arthritis, Cataracts, Diabetes Type 2 Insulin Dependent, Dementia, Depression, Hypothyroidism, Osteoporosis, Renal Disease Patient History - Cardiac/Respiratory: Hypertension, Hyperlipidemia Patient History - Cancer: No Hx of Cancer Patient History - Surgical Procedures: T & A, Other Patient History - Other: None LMP (females 10-50): Menopausal - Family History Mother Family History - Medical: Family History - Cardiac/Respiratory: No pertinent hx Family History - Cancer: No pertinent family hx Father Family History - Medical: , Diabetes Type 2 Family History - Cardiac/Respiratory: CVA/Stroke Family History - Cancer: No pertinent family hx Brother Family History - Medical: , Diabetes Type 2 Family History - Cardiac/Respiratory: No pertinent hx Family History - Cancer: No pertinent family hx - Social History Living Situations: assisted living Abuse History: No History of abuse Psych History: No pertinent hx Smoking Status: Never smoker Alcohol Use: none Drug Use: none - Immunizations Immunizations Up to Date: Yes Hx Pneumococcal Vaccination: Yes History of Influenza Vaccine: Yes Physical Exam - Physical Exam General Appearance: Present: alert, thin, other - Appears to not feel well Head Exam: Present: normal inspection, no evidence of injury Neck: Present: normal inspection, nontender, supple Respiratory: Present: no respiratory distress, normal breath sounds, no accessory muscle use, lungs clear Cardiovascular/Chest: Present: regular rate, rhythm, normal peripheral pulses Gastrointestinal/Abdominal: Present: nontender, nondistended, soft Extremity Exam: Present: non-tender, normal range of motion, pedal edema Neurological Exam: Present: alert, other - Depressed appearing, Poor historian. Absent: oriented, normal mood/affect Skin Exam: Present: warm/dry, pallor ED Progress - Results and Orders Patient's Lab Results:: I have reviewed the patient's lab results. - Vital Signs Patient's Vital Signs:: I have reviewed the patient's vital signs. Vital Signs: Vital Signs 05/10/17 13:40 Temperature 36.4 C L Pulse Rate 90 Respiratory 16 Rate Blood Pressure 127/69 O2 Sat by Pulse 98 Oximetry - Progress/Reassessment Chief Complaint: Urinary Tract Problems Progress:: Unchanged Plan - Plan Plan: Lactic acid and WBC are elevated, NS bolus infusing and Rocephin IVPB ordered. Blood glucose is 641 on CMP with negative serum ketones. 10 units of regular insulin to be given IV. Dr. Echavarria contacted and will admit patient for further IV antibiotics and fluids. Departure Clinical Impression: Urinary tract infection in elderly patient, Hyperglycemia without ketosis Altered mental status Qualifiers: Altered mental status type: transient alteration of awareness Qualified Code(s) : R40.4 - Transient alteration of awareness - Departure Disposition: [facility] Condition: Fair Referrals: Angela Echavarria DO [Primary Care Provider] -
[2017-05-10 14:59] LABS: Glucose * 641 mg/dL (70-110)
[2017-05-10] MEDS ORDERED: INSULIN REGULAR, HUMAN 100 UNITS/ML VIAL IV ONE (15:21)
[2017-05-10] MEDS ORDERED: NORMAL SALINE 1,000 ML IV PRN (15:30)
[2017-05-10] MEDS ORDERED: INSULIN REGULAR, HUMAN 100 UNITS/ML VIAL ONE (15:34)
--- NOTE | 2017-05-10 17:54 | OR ---
Anesthesia Procedure Note - Anesthesia Procedure Note Date of Service: 05/10/17 Narrative: Vital Signs - Last Taken Temp 36.8 C 05/10/17 16:24 Pulse 89 05/10/17 16:24 Resp 16 05/10/17 16:24 BP 148/63 05/10/17 16:24 Pulse Ox 98 05/10/17 16:24 O2 Oxygen Delivery Method Room Air 05/10/17 17:53 ANESTHESIA PROCEDURE NOTE Date of Procedure: 05/10/2017. Time of procedure: 1745. Performed by: Eddie Betancur CRNA Line Technician: None. Preprocedure diagnosis: Difficult IV access. Post procedure diagnosis: Same. Procedure: Peripheral vein IV insertion. Indications: This 82-year-old female who is in need of a peripheral IV for intravenous fluid. Findings: See below. Details of the procedure: Skin over the intended target site was cleansed with alcohol. A 22-gauge IV catheter was inserted into a left hand vein. A sterile dressing was applied over the insertion site. The line was then flushed with sterile saline solution. EBL: Minimal. Fluids: N/A. Specimen: N/A. Post procedure condition: The patient tolerated the procedure well. No complications were noted. Thank you for this consultation. Eddie Betancur CRNA
[2017-05-10 22:28] LABS: Hemoglobin A1C 9.1 % (4.00-6.0)
[2017-05-10] MEDS ORDERED: INSULIN LISPRO 100 UNITS/ML VIAL SC SCH (23:00)
--- NOTE | 2017-05-11 00:49 | HP ---
Chief Complaint - Chief Complaint Date of Service: 05/10/17 Time of Service: 22:00 Chief Complaint: confused and hyperglycemia History of Present Illness: 82 years old female adm to the hospital with reports of confusion and hyperglycemic. PMH significant for dementia, DM type II,dementia, depression, hypothyroidism, hypertension, HDL,renal disease. Pt a poor historian and during phone conversation information obtained from daughter (Marisol). Per daughter pt is a resident at [facility]. Today she had a fall at the facility and appear more confused than she typically dose. Family called Dr Echavarria and was instructed to take her to the clinic to get UA done. Before leaving Blood Glucose obtained >600, family was instructed to take pt to the ER. IN ER BG >600 and UA+ UTI. She was initiated on Rocephin, IVF and insulin. Plan of care discussed with pt daughter she verbalized understanding and agrees. - Patient's Past Medical History Patient History - Medical: Arthritis, Cataracts, Diabetes Type 2 Insulin Dependent, Dementia, Depression, Hypothyroidism, Osteoporosis, Renal Disease Patient History - Cardiac/Respiratory: Hypertension, Hyperlipidemia Patient History - Cancer: No Hx of Cancer Patient History - Surgical Procedures: T & A, Other Patient History - Other: None LMP (females 10-50): Menopausal - Family History Mother Family History - Medical: Family History - Cardiac/Respiratory: No pertinent hx Family History - Cancer: No pertinent family hx Father Family History - Medical: , Diabetes Type 2 Family History - Cardiac/Respiratory: CVA/Stroke Family History - Cancer: No pertinent family hx Brother Family History - Medical: , Diabetes Type 2 Family History - Cardiac/Respiratory: No pertinent hx Family History - Cancer: No pertinent family hx - Social History Living Situations: assisted living - [place] Abuse History: No History of abuse Psych History: No pertinent hx Smoking Status: Never smoker Have you smoked in the past 12 months: No Patient requests Smoking Cessation Consult: No Initiate information on Smoking Cessation: No Alcohol Use: none Drug Use: none - Immunizations Immunizations Up to Date: Yes Hx Pneumococcal Vaccination: Yes History of Influenza Vaccine: Yes Review Of Systems (GEN) - Review of Systems Generalized/Overall Review: Present: No Symptoms Reported - Information obtained from daughter, pt have history dementia EENTM: Present: No Symptoms Reported Respiratory: Present: No Symptoms Reported Cardiac: Present: No Symptoms Reported Abdominal: Present: No Symptoms Reported Genitourinary: Present: No Symptoms Reported Musculoskeletal: Present: No Symptoms Reported Neurological: Present: Weakness Skin: Present: Bruising Immunizations: IMMUNIZATION HX Immunizations Up to Date Yes History of Influenza Vaccine Yes Hx Pneumococcal Vaccination Yes Allergies/Adverse Reactions: Allergies Allergy/AdvReac Type Severity Reaction Status Date / Time tramadol AdvReac Nausea Verified 05/10/17 13:50 Home Medications: HOME MEDICATIONS Aspirin [Aspirin EC] 81 mg PO DAILY 10/20/16 [Last Taken Unknown] Calcium Carbonate/Vitamin D3 [Calcium 500-Vit D3 600 Tablet] 1 each PO BID 10/20 [Last Taken Unknown] Cholecalciferol (Vitamin D3) [Vitamin D3] 2,000 unit PO DAILY 10/20/16 [Last Taken Unknown] Cyanocobalamin (Vitamin B-12) [Vitamin B12] 1,000 mcg PO DAILY 10/20/16 [Last Taken Unknown] Insulin Glargine,Hum.rec.anlog [Lantus] 5 units SC DAILY 10/20/16 [Last Taken Unknown] Levothyroxine Sodium [Synthroid] 50 mcg PO DAILY 10/20/16 [Last Taken Unknown] Memantine HCl [Namenda Xr] 28 mg PO DAILY 10/20/16 [Last Taken Unknown] Pravastatin Sodium [Pravachol] 20 mg PO DAILY 10/20/16 [Last Taken Unknown] metFORMIN HCL [Glucophage] 500 mg PO BIDWM 10/21/16 [Last Taken Unknown] Donepezil HCl [Aricept] 10 mg PO HS 01/15/17 [Last Taken Unknown] Naproxen [EC-Naprosyn] 500 mg PO DAILY PRN 01/15/17 [Last Taken Unknown] Acetaminophen [Tylenol Arthritis] 650 mg PO QID PRN 05/11/17 [Last Taken Unknown ] Cyanocobalamin (Vitamin B-12) [B-12] 1,000 mcg PO DAILY 05/11/17 [Last Taken Unknown] Mirtazapine [Mirtazapine (Remeron)] 15 mg PO HS 05/11/17 [Last Taken Unknown] Sertraline HCl [Zoloft] 50 mg PO DAILY 05/11/17 [Last Taken Unknown] Exam - Exam Vital Signs: Vital Signs - Last Taken Temp 37 C 05/10/17 22:50 Pulse 87 05/10/17 22:50 Resp 18 05/10/17 22:50 BP 149/62 05/10/17 22:50 Pulse Ox 97 05/10/17 22:50 Constitutional: Present: Elderly, Thin and frail ENT Exam: Present: hard of hearing Eye Exam: bilateral eye: normal inspection Neck: Present: full range of motion Back Exam: Present: normal inspection Breasts: Present: Exam deferred Respiratory: Present: chest non-tender, normal breath sounds, no respiratory distress, decreased breath sounds Cardiovascular/Chest: Present: normal peripheral pulses, no gallop, edema Peripheral Pulses: dorsalis-pedis (R): 3+, dorsalis-pedis (L): 3+ Abdomen: Present: Normal bowel sounds, soft, nontender, nondistended, no rebound tenderness /Rectal: Present: Exam deferred Extremity: Present: normal range of motion, normal inspection, lower extremity edema, swelling Skin Exam: Present: warm/dry, diaper rash Neurologic: Present: alert - to self and place Appearance: Present: appropriate appearance, appropriate insight Eye contact: Present: cooperative, good eye contact Diagnostic Studies: Abnormal Lab Results 05/10/17 Range/Units 17:20 Lactic Acid, Venous 3.4 H* (0.4-1.9) mmol/L Laboratory Results WBC 12.7 K/mm3 (4.0-10.5) H 05/10/17 14:15 RBC 4.17 M/mm3 (4.2-5.4) L 05/10/17 14:15 Hgb 13.0 gm/dL (12.5-16.0) 05/10/17 14:15 Hct 39.5 % (37.0-47.0) 05/10/17 14:15 MCV 94.7 fl (78-100) 05/10/17 14:15 MCH 31.2 pg (27-31) H 05/10/17 14:15 MCHC 32.9 g/dl (32-36) 05/10/17 14:15 RDW 13.2 % (11.5-14.0) 05/10/17 14:15 Plt Count 279 K/mm3 (150-450) 05/10/17 14:15 MPV 11.3 fl (6.0-9.5) H 05/10/17 14:15 Immature Gran % (Auto) 0.60 % (0.001-0.429) H 05/10/17 14:15 Immature Gran # (Auto) 0.07 K/mm3 (0.000-0.0310) H 05/10/17 14:15 Neutrophils % 85.3 % (42-75.0) H 05/10/17 14:15 Lymphocytes % 4.8 % (20-51) L 05/10/17 14:15 Monocytes % 8.3 % (0.0-9) 05/10/17 14:15 Eosinophils % 0.2 % (0.0-3.0) 05/10/17 14:15 Basophils % 0.8 % (0.0-1.0) 05/10/17 14:15 Nucleated RBC % 0.0 k/mm3 (0-1) 05/10/17 14:15 Neutrophils # 10.8 K/mm3 (1.3-6.0) H 05/10/17 14:15 Lymphocytes # 0.6 k/mm3 (1.5-3.5) L 05/10/17 14:15 Monocytes # 1.1 k/mm3 (0.0-1.0) H 05/10/17 14:15 Eosinophils # 0.0 k/mm3 (0.0-0.7) 05/10/17 14:15 Absolute Basophils 0.1 k/mm3 (0.0-0.1) 05/10/17 14:15 Sodium 134 mmol/L (132-142) 05/10/17 14:15 Plasma Sodium 143 mmol/L (130-142) H 05/10/17 14:15 Potassium 4.2 mmol/L (3.4-4.6) 05/10/17 14:15 Chloride 95 mmol/L (97-106) L 05/10/17 14:15 Carbon Dioxide 28.5 mmol/L (24-32.6) 05/10/17 14:15 Anion Gap 14.7 mmol/L (6.8-13.8) H 05/10/17 14:15 BUN 16 mg/dL (3-23) 05/10/17 14:15 Creatinine 1.26 mg/dL (0.4-1.4) 05/10/17 14:15 Est GFR (Non-Af Amer) 43 mL/min (60-130) L D 05/10/17 14:15 BUN/Creatinine Ratio 12.7 (9.0-21.6) 05/10/17 14:15 Random Glucose 641 mg/dL (70-110) H* 05/10/17 14:15 Mean Blood Glucose 217 mg/dL 05/10/17 14:15 Hemoglobin A1c 9.1 % (4.00-6.0) H 05/10/17 14:15 Lactic Acid, Venous 3.4 mmol/L (0.4-1.9) H* 05/10/17 17:20 Calcium 9.8 mg/dL (7.9-10.9) 05/10/17 14:15 Calcium Adj for Albumin 9.2 mg/dL (8.4-10.2) 05/10/17 14:15 Total Bilirubin 0.7 mg/dL (0.0-1.1) 05/10/17 14:15 AST 21 U/L (0-48) 05/10/17 14:15 ALT 24 U/L (19-67) 05/10/17 14:15 Alkaline Phosphatase 88 U/L (50-170) 05/10/17 14:15 Total Protein 7.8 gm/dL (6.2-8.2) 05/10/17 14:15 Albumin 4.4 gm/dl (3.4-5.0) 05/10/17 14:15 Procalcitonin 0.16 ng/mL (0.05-0.50) 05/10/17 14:15 Urine Color Yellow 05/10/17 14:07 Urine Appearance Slightly cloudy 05/10/17 14:07 Urine pH 5.5 pH (5.0-7.0) 05/10/17 14:07 Ur Specific [place] <=1.005 SP.GR. (1.005-1.010) 05/10/17 14:07 Urine Protein Negative mg/dL (NEGATIVE) 05/10/17 14:07 Urine Glucose (UA) >=1000 mg/dL (NEGATIVE) H 05/10/17 14:07 Urine Ketones 15 mg/dL (NEGATIVE) 05/10/17 14:07 Urine Blood 5 /ul (NEGATIVE) H 05/10/17 14:07 Urine Nitrate Positive (NEGATIVE) H 05/10/17 14:07 Urine Bilirubin Negative mg/dl (NEGATIVE) 05/10/17 14:07 Urine Urobilinogen Normal EU/dl (NORMAL) 05/10/17 14:07 Ur Leukocyte Esterase Negative /ul (NEGATIVE) 05/10/17 14:07 Urine RBC Trace /hpf (0-5) 05/10/17 14:07 Urine WBC 0-5 /hpf (0-5) 05/10/17 14:07 Ur Epithelial Cells 0-5 /hpf (0-5) 05/10/17 14:07 Urine Bacteria 3+ (NONE) H 05/10/17 14:07 Urine Culture Comments Culture to follow 05/10/17 14:07 Serum Ketones Negative (NEGATIVE) 05/10/17 14:15 Assessment/Plan - Narrative Narrative: Altered mental status pt with history dementia and likely due to UTI pt gradually improving and alert to self and place Hyperglycemia On adm BG >600, A1C 9.1 Humalog 10 units given in ER Negative for ketones Continue with IVF Accu-check and medium dose sliding scale Consistent carb diet Will hold metformin on adm lactic acid 2.1--->3.4 Resume Lantus UTI Per family pt more confused than her baseline Seen on UA WBC 12.7 Rocephin given in ER, continue with schedule doses. Code status: Full GI ppx: pepcid VTE ppx: Ambulate and SCD Time 40 minutes, previous records reviewed and case discussed with Dr Echavarria - Assessment/Plan (1) Altered mental status Problem: Acute Qualifiers: Altered mental status type: transient alteration of awareness Qualified Code(s): R40.4 - Transient alteration of awareness (2) Hyperglycemia without ketosis Problem: Acute (3) Urinary tract infection in elderly patient Problem: Acute (4) Contusion, hip Problem: Acute (5) Diabetes mellitus Problem: Acute
[2017-05-11] MEDS ORDERED: DEXTROSE 5%-0.5 NORMAL SALINE 1,000 ML IV PRN (02:15)
[2017-05-11] MEDS ORDERED: NORMAL SALINE 1,000 ML IV PRN (03:15)
[2017-05-11 05:52] LABS: Hematocrit 34.9 % (37.0-47.0); Hemoglobin 11.4 gm/dL (12.5-16.0); Mean Cell Volume 94.6 fl (78-100); Mean Corpuscular Hemoglobin 30.9 pg (27-31); Mean Corpuscular Hgb Conc 32.7 g/dl (32-36); Mean Platelet Volume 10.8 fl (6.0-9.5); Neutrophil # 6.5 K/mm3 (1.3-6.0); Neutrophil % 70.1 % (42-75.0); Platelet Count 240 K/mm3 (150-450); Red Blood Count 3.69 M/mm3 (4.2-5.4); Red Cell Distribution Width 13.2 % (11.5-14.0); White Blood Count 9.3 K/mm3 (4.0-10.5)
[2017-05-11 06:01] LABS: Anion Gap 11.9 mmol/L (6.8-13.8); BUN/Creatinine Ratio 14.1 (9.0-21.6); Calcium * 8.2 mg/dL (7.9-10.9); Carbon Dioxide 26.2 mmol/L (24-32.6); Potassium 3.1 mmol/L (3.4-4.6)
[2017-05-11] MEDS ORDERED: POTASSIUM CHLORIDE 20 MEQ TABLET.SA PO ONE (06:19)
[2017-05-11] MEDS ORDERED: INSULIN LISPRO 100 UNITS/ML VIAL SC SCH (07:00)
[2017-05-11] MEDS ORDERED: FAMOTIDINE 20 MG TABLET PO SCH (09:00)
[2017-05-11] MEDS: INSULIN LISPRO 100 UNITS/ML VIAL SC SCH ×3 (09:33→13:54)
[2017-05-11 10:28] VITALS: BP 146/68
[2017-05-11] MEDS ORDERED: ACETAMINOPHEN 650 MG TABLET PO PRN (12:01)
--- NOTE | 2017-05-11 12:08 | DS ---
(1) Toxic metabolic encephalopathy Problem: Acute (2) Hyperglycemia due to type 2 diabetes mellitus Problem: Acute (3) Urinary tract infection in elderly patient Problem: Acute Description of Stay: ADMISSION DATE: 05/11/2017 DISCHARGE DATE: 05/11/2017 ADMISSION HPI by LIZZY García: 82 years old female adm to the hospital with reports of confusion and hyperglycemic. PMH significant for dementia, DM type II,dementia, depression, hypothyroidism, hypertension, HDL,renal disease. Pt a poor historian and during phone conversation information obtained from daughter (Marisol). Per daughter pt is a resident at [facility] living [facility]. Today she had a fall at the facility and appear more confused than she typically dose. Family called Dr Ecahvarria and was instructed to take her to the clinic to get UA done. Before leaving Blood Glucose obtained >600, family was instructed to take pt to the ER. IN ER BG >600 and UA+ UTI. She was initiated on Rocephin, IVF and insulin. Plan of care discussed with pt daughter she verbalized understanding and agrees. HOSPITAL COURSE: the patient was admitted to the hospital with an altered mental status at which time she was diagnosed with a toxic metabolic encephalopathy likely secondary to an acute UTI and/or hyperglycemia. The patients hyperglycemia was treated with insulin during her admission and her urinary tract infection which treated with IV antibiotics which were transitioned to oral antibiotics at discharge. The patients mental status is back to baseline at the time of discharge. She was discharged back to the [place] stable condition. FOLLOW-UP APPOINTMENTS: -PCP, Dr. Echavarria, within 1-2 weeks NEW OR CHANGED MEDICATIONS: -Levofloxacin 500 mg PO daily 3 days -Lantus 10 units subcutaneously daily -Metformin 1000mg PO BID with meals DISCONTINUED MEDICATIONS: None RADIOLOGY REPORTS: None Procedures Performed: none Discharge Disposition: [place] self care Disposition: [place] self-care Condition: Stable Discharge Activity: Activity as tolerated Discharge Diet: Resume usual diet Referrals: Angela Echavarria DO [Primary Care Provider] - Additional Patient Instructions (free text): Follow-up with PCP, Dr. Echavarria, within 1-2 weeks 05-24 @ 3:00pm. Prescriptions (Any new or edited meds): Insulin Glargine,Hum.rec.anlog [Lantus] 10 units SC DAILY #1 vial Levofloxacin [Levaquin] 500 mg PO DAILY #3 tablet metFORMIN HCL [Glucophage] 1,000 mg PO BIDWM #60 tablet Complete Home Medications List: Complete Home Medication List: Aspirin [Aspirin EC] 81 mg PO DAILY 10/20/16 Calcium Carbonate/Vitamin D3 [Calcium 500-Vit D3 600 Tablet] 1 each PO BID 10/20 Cholecalciferol (Vitamin D3) [Vitamin D3] 2,000 unit PO DAILY 10/20/16 Cyanocobalamin (Vitamin B-12) [Vitamin B12] 1,000 mcg PO DAILY 10/20/16 Levothyroxine Sodium [Synthroid] 50 mcg PO DAILY 10/20/16 Memantine HCl [Namenda Xr] 28 mg PO DAILY 10/20/16 Pravastatin Sodium [Pravachol] 20 mg PO DAILY 10/20/16 Donepezil HCl [Aricept] 10 mg PO HS 01/15/17 Naproxen [EC-Naprosyn] 500 mg PO DAILY PRN 01/15/17 Acetaminophen [Tylenol Arthritis] 650 mg PO QID PRN 05/11/17 Cyanocobalamin (Vitamin B-12) [B-12] 1,000 mcg PO DAILY 05/11/17 Insulin Glargine,Hum.rec.anlog [Lantus] 10 units SC DAILY #1 vial 05/11/17 Levofloxacin [Levaquin] 500 mg PO DAILY #3 tablet 05/11/17 Mirtazapine [Remeron] 15 mg PO HS 05/11/17 Sertraline HCl [Zoloft] 50 mg PO DAILY 05/11/17 metFORMIN HCL [Glucophage] 1,000 mg PO BIDWM #60 tablet 05/11/17
[2017-05-11] MEDS ORDERED: metFORMIN HCL 500 MG TABLET PO SCH (17:00)
[2017-05-11] MEDS ORDERED: DONEPEZIL HCL 10 MG TABLET PO SCH (21:00)
[2017-05-11] MEDS ORDERED: CALCIUM CARBONATE/VITAMIN D3 1 TAB TABLET PO SCH (21:00)
[2017-05-11] MEDS ORDERED: PRAVACHOL 20 MG PO SCH (21:00)
[2017-05-11] MEDS ORDERED: MIRTAZAPINE 15 MG TABLET PO SCH (21:00)
[2017-05-12] MEDS ORDERED: LEVOTHYROXINE SODIUM 50 MCG TABLET PO SCH (07:00)
[2017-05-12] MEDS ORDERED: CYANOCOBALAMIN 1000 MCG PO SCH (09:00)
[2017-05-12] MEDS ORDERED: NAMENDA XR 28 MG PO SCH (09:00)
[2017-05-12] MEDS ORDERED: SERTRALINE HCL 50 MG TABLET PO SCH (09:00)
[2017-05-12] MEDS ORDERED: CHOLECALCIFEROL 1,000 UNIT CAPSULE PO SCH (09:00)
[2017-05-12] MEDS ORDERED: ASPIRIN 81 MG TABLET.DR PO SCH (09:00)
[2017-05-12] MEDS ORDERED: CYANOCOBALAMIN 1,000 MCG TABLET PO SCH (09:00)
== END 2017-05-11 13:57 | disposition home or self-care (01) ==
LOC: ER 13:33 → MS 15:37
PROVIDERS: ADMIT Internal Medicine; ATTEND Internal Medicine
DX: G92 Toxic encephalopathy (principal); N39.0 Urinary tract infection, site not specified; B96.1 Klebsiella pneumoniae [K. pneumoniae] as the cause of diseases classified elsewhere; E11.65 Type 2 diabetes mellitus with hyperglycemia; Z79.4 Long term (current) use of insulin; F03.90 Unspecified dementia, unspecified severity, without behavioral disturbance, psychotic disturbance, mood disturbance, and anxiety; I10 Essential (primary) hypertension; E78.5 Hyperlipidemia, unspecified; E03.9 Hypothyroidism, unspecified; F32.9 Major depressive disorder, single episode, unspecified; N28.9 Disorder of kidney and ureter, unspecified
CPT/HCPCS: 36410; 36415; 80048; 80053; 81001; 82009; 83036; 83605; 84145; 85025; 87040; 87077; 87081; 87086; 87186; 96365; 96372; 96375; 99285; G0378

== ENCOUNTER 2017-07-04 17:13 | Emergency (ER) | payer MEDICARE ==
--- NOTE | 2017-07-04 17:41 | ERNOTE ---
Medical Problem HPI - Narrative Date of Service: 07/04/17 - General Chief Complaint: Diabetes Related Problem Time Seen by Provider: 07/04/17 17:15 Source: patient, family Exam Limitations: hard of hearing - Immun/Allergies/Home Medications Immunizations: IMMUNIZATION HX Immunizations Up to Date Yes History of Influenza Vaccine Yes Hx Pneumococcal Vaccination Yes Allergies/Adverse Reactions: Allergies tramadol Adverse Reaction (Verified 07/04/17 17:34) Nausea Home Medications: HOME MEDICATIONS Aspirin [Aspirin EC] 81 mg PO DAILY 10/20/16 [Last Taken Unknown] Calcium Carbonate/Vitamin D3 [Calcium 500-Vit D3 600 Tablet] 1 each PO BID 10/20 [Last Taken Unknown] Cholecalciferol (Vitamin D3) [Vitamin D3] 2,000 unit PO DAILY 10/20/16 [Last Taken Unknown] Levothyroxine Sodium [Synthroid] 50 mcg PO DAILY 10/20/16 [Last Taken Unknown] Memantine HCl [Namenda Xr] 28 mg PO DAILY 10/20/16 [Last Taken Unknown] Donepezil HCl [Aricept] 10 mg PO HS 01/15/17 [Last Taken Unknown] Naproxen [EC-Naprosyn] 500 mg PO DAILY PRN 01/15/17 [Last Taken Unknown] Acetaminophen [Tylenol Arthritis] 650 mg PO QID PRN 05/11/17 [Last Taken Unknown ] Cyanocobalamin (Vitamin B-12) [B-12] 1,000 mcg PO DAILY 05/11/17 [Last Taken Unknown] Insulin Glargine,Hum.rec.anlog [Lantus] 10 units SC DAILY #1 vial 05/11/17 [ Last Taken Unknown] Mirtazapine [Remeron] 15 mg PO HS 05/11/17 [Last Taken Unknown] Sertraline HCl [Zoloft] 50 mg PO DAILY 05/11/17 [Last Taken Unknown] metFORMIN HCL [Glucophage] 1,000 mg PO BIDWM #60 tablet 05/11/17 [Last Taken Unknown] Blood Sugar Diagnostic [Accu-Chek Guide Test Strip] 1 each MC QID 07/04/17 [ Last Taken Unknown] Nitrofurantoin Macrocrystal [Nitrofurantoin] 100 mg PO BID 7 Days #14 capsule [Last Taken Unknown] - History of Present History Narrative: Pt is an 82 year old female who presents from the [facility] with family with complaints of elevated BS in the 500. Per her daughter pt has been having fluctuating high glucose levels for quite some time now, she was recently admitted 05/10 with a UTI and hyperglycemia-BS were in the 700's. She sees Dr. Echavarria who has been adjusting her medication for this problem, last change was about 2 weeks ago. Date (Duration): 07/04/17 Time (Timing): 16:00 Timing: intermittent Severity: moderate Review of Systems - Narrative Narrative: Pt reports feeling "fine" without any specific complaints. Per her daughter she is a poor historian. - Review of Systems Constitutional: Present: no symptoms reported EYE: Present: no symptoms reported ENT: Present: no symptoms reported Respiratory: Present: no symptoms reported Cardiology: Present: no symptoms reported Gastrointestinal/Abdominal: Present: no symptoms reported Genitourinary: Present: no symptoms reported Musculoskeletal: Present: no symptoms reported Skin: Present: no symptoms reported Neurological: Present: no symptoms reported Endocrine: Present: no symptoms reported Hematologic/Lymphatic: Present: no symptoms reported - Patient's Past Medical History Patient History - Medical: Arthritis, Cataracts, Diabetes Type 2 Insulin Dependent, Dementia, Depression, Hypothyroidism, Osteoporosis, Renal Disease Patient History - Cardiac/Respiratory: Hypertension, Hyperlipidemia Patient History - Cancer: No Hx of Cancer Patient History - Surgical Procedures: T & A, Other Patient History - Other: None LMP (females 10-50): Menopausal - Family History Mother Family History - Medical: Family History - Cardiac/Respiratory: No pertinent hx Family History - Cancer: No pertinent family hx Father Family History - Medical: , Diabetes Type 2 Family History - Cardiac/Respiratory: CVA/Stroke Family History - Cancer: No pertinent family hx Brother Family History - Medical: , Diabetes Type 2 Family History - Cardiac/Respiratory: No pertinent hx Family History - Cancer: No pertinent family hx - Social History Living Situations: assisted living Abuse History: No History of abuse Psych History: No pertinent hx Smoking Status: Never smoker Have you smoked in the past 12 months: No Do you dip or chew tobacco: No Alcohol Use: none Drug Use: none - Immunizations Immunizations Up to Date: Yes Hx Pneumococcal Vaccination: Yes History of Influenza Vaccine: Yes Physical Exam - Physical Exam General Appearance: Present: wd/wn, alert, no apparent distress, thin Head Exam: Present: normal inspection Eye Exam: Normal inspection: bilateral Ears, Nose, Throat: Present: dry mucous membranes Respiratory: Present: no respiratory distress, normal breath sounds, no accessory muscle use, chest nontender, decreased breath sounds Cardiovascular/Chest: Present: regular rate, rhythm, no murmur, normal peripheral pulses Peripheral Pulses: N=norm/S=strong/W=weak/B=bound/A=absent: Dorsalis-pedis (R): Normal, Dorsalis-pedis (L): Normal Gastrointestinal/Abdominal: Present: normal bowel sounds, nontender, nondistended, soft, no organomegaly Back Exam: Present: normal inspection, normal range of motion, no CVA tenderness , no vertebral tenderness Extremity Exam: Present: normal inspection, normal range of motion Neurological Exam: Present: alert, oriented, normal mood/affect, no motor/ sensory deficits Skin Exam: Present: normal color, warm/dry, other - scattered eccymosis ED Progress - Vital Signs Vital Signs: Vital Signs 07/04/17 17:17 Temperature 36.4 C L Pulse Rate 102 H Respiratory 18 Rate Blood Pressure 163/80 O2 Sat by Pulse 96 Oximetry - Progress/Reassessment Chief Complaint: Diabetes Related Problem Plan - Plan Plan: Pt UA was consist with UTI, +4 bacteria and nitrate positive. It will be sent for a culture. She will be given one dose of nitrofurantin here as well as 10 units of insulin to bring her blood sugars to a more acceptable range. Urine and serum were without ketones, VBG did not reveal any evidence of acidosis, she does not have evidence of leukocytosis so I feel comfortable in allowing her to go back to the [place]. She will continue to check her blood sugars four times a day while there and follow up with Dr. Echavarria is she does not improve. Departure Clinical Impression: Hyperglycemia without ketosis, Urinary tract infection in elderly patient Urinary tract infection Qualifiers: Urinary tract infection type: site unspecified Hematuria presence: without hematuria Qualified Code(s): N39.0 - Urinary tract infection, site not specified Uncontrolled diabetes mellitus Qualifiers: Diabetes mellitus type: type 2 Diabetes mellitus complication status: without complication Diabetes mellitus bed bug exterminator insulin use: with bed bug exterminator use Qualified Code(s): E11.65 - Type 2 diabetes mellitus with hyperglycemia; Z79.4 - [facility] (current) use of insulin; Z79.4 - superintendent terminal (current) use of insulin ; Z79.4 - superintendent terminal (current) use of insulin; Z79.4 - superintendent terminal (current) use of insulin - Departure Disposition: [place] self-care Condition: Good Instructions: Hyperglycemia, [id number], Urinary Tract Infection, Adult, Easy -to-Read Additional Instructions: Please continue to check blood sugars at home, report any abnormally high levels to Dr. Echavarria as previously directed. You have been diagnosed with a UTI which is most likely attributing to your high blood sugars. You have been prescribed an antibiotic, please take full course of antibiotic as prescribed, even if symptoms improve. Increase your fluid intake. Referrals: Angela Echavarria DO [Primary Care Provider] - Prescriptions: Nitrofurantoin Macrocrystal [Nitrofurantoin] 100 mg PO BID 7 Days #14 capsule
[2017-07-04 17:43] LABS: Mean Cell Volume 94.9 fl (78-100); Mean Corpuscular Hemoglobin 30.8 pg (27-31); Mean Corpuscular Hgb Conc 32.4 g/dl (32-36); Mean Platelet Volume 10.2 fl (6.0-9.5); Neutrophil # 4.5 K/mm3 (1.3-6.0); Neutrophil % 62.7 % (42-75.0); Platelet Count 285 K/mm3 (150-450); Red Cell Distribution Width 14.2 % (11.5-14.0); White Blood Count 7.1 K/mm3 (4.0-10.5)
[2017-07-04 17:45] LABS: Venous Blood Gas HCO3 23.9 mmol/L (22.0-29.0); Venous Blood Gas pH 7.38 (7.32-7.43)
[2017-07-04 17:56] LABS: Anion Gap 11.3 mmol/L (6.8-13.8); BUN/Creatinine Ratio 17.1 (9.0-21.6); Blood Urea Nitrogen 21 mg/dL (3-23); Calcium * 9.6 mg/dL (7.9-10.9); Carbon Dioxide 27.9 mmol/L (24-32.6); Chloride 101 mmol/L (97-106); Estimated Creat Clear 27.9; Glucose * 464 mg/dL (70-110); Potassium 4.2 mmol/L (3.4-4.6); Sodium 136 mmol/L (132-142)
[2017-07-04 18:02] LABS: Urine Appearance Clear; Urine Bilirubin Negative (NEGATIVE); Urine Blood Negative /ul (NEGATIVE); Urine Color Yellow; Urine Ketone Negative (NEGATIVE); Urine Protein Negative (NEGATIVE); Urine Specific Gravity 1.015 SP.GR. (1.005-1.010); Urine Urobilinogen Normal (NORMAL)
[2017-07-04 18:03] LABS: Urine Nitrite Positive (NEGATIVE)
[2017-07-04 18:08] LABS: Urine Bacteria 4+; Urine RBC None Seen /hpf (0-5); Urine WBC 0-5 /hpf (0-5)
[2017-07-04] MEDS ORDERED: INSULIN LISPRO 100 UNITS/ML VIAL SC ONE (18:12)
[2017-07-04] MEDS ORDERED: NITROFURANTOIN/NITROFURAN MAC 100 MG CAPSULE ONE (18:21)
[2017-07-04] MEDS ORDERED: INSULIN LISPRO 100 UNITS/ML VIAL ONE (18:21)
[2017-07-04] MEDS ORDERED: NITROFURANTOIN/NITROFURAN MAC 100 MG CAPSULE PO SCH (18:30)
[2017-07-04 19:33] VITALS: BP 161/71
== END 2017-07-04 19:29 | disposition home or self-care (01) ==
LOC: ER 17:13
DX: E11.65 Type 2 diabetes mellitus with hyperglycemia; E03.9 Hypothyroidism, unspecified; M19.90 Unspecified osteoarthritis, unspecified site; R73.9 Hyperglycemia, unspecified; I10 Essential (primary) hypertension; N39.0 Urinary tract infection, site not specified; E78.5 Hyperlipidemia, unspecified; Z79.4 Long term (current) use of insulin

== ENCOUNTER 2017-07-21 20:33 | Emergency (ER) | payer MEDICARE ==
--- NOTE | 2017-07-21 21:23 | ERNOTE ---
Medical Problem HPI - General Chief Complaint: Diabetes Related Problem Time Seen by Provider: 07/21/17 21:00 Source: patient, family Exam Limitations: no limitations - Immun/Allergies/Home Medications Immunizations: IMMUNIZATION HX Immunizations Up to Date Yes History of Influenza Vaccine Yes Hx Pneumococcal Vaccination Yes Allergies/Adverse Reactions: Allergies tramadol Adverse Reaction (Verified 07/04/17 17:34) Nausea Home Medications: HOME MEDICATIONS Aspirin [Aspirin EC] 81 mg PO DAILY 10/20/16 [Last Taken Unknown] Calcium Carbonate/Vitamin D3 [Calcium 500-Vit D3 600 Tablet] 1 each PO BID 10/20 [Last Taken Unknown] Cholecalciferol (Vitamin D3) [Vitamin D3] 2,000 unit PO DAILY 10/20/16 [Last Taken Unknown] Levothyroxine Sodium [Synthroid] 50 mcg PO DAILY 10/20/16 [Last Taken Unknown] Memantine HCl [Namenda Xr] 28 mg PO DAILY 10/20/16 [Last Taken Unknown] Donepezil HCl [Aricept] 10 mg PO HS 01/15/17 [Last Taken Unknown] Naproxen [EC-Naprosyn] 500 mg PO DAILY PRN 01/15/17 [Last Taken Unknown] Acetaminophen [Tylenol Arthritis] 650 mg PO QID PRN 05/11/17 [Last Taken Unknown ] Cyanocobalamin (Vitamin B-12) [B-12] 1,000 mcg PO DAILY 05/11/17 [Last Taken Unknown] Insulin Glargine,Hum.rec.anlog [Lantus] 10 units SC DAILY #1 vial 05/11/17 [ Last Taken Unknown] Mirtazapine [Remeron] 15 mg PO HS 05/11/17 [Last Taken Unknown] Sertraline HCl [Zoloft] 50 mg PO DAILY 05/11/17 [Last Taken Unknown] metFORMIN HCL [Glucophage] 1,000 mg PO BIDWM #60 tablet 05/11/17 [Last Taken Unknown] Blood Sugar Diagnostic [Accu-Chek Guide Test Strip] 1 each MC QID 07/04/17 [ Last Taken Unknown] Ciprofloxacin HCl [Cipro] 500 mg PO BID #20 tablet 07/06/17 [Last Taken Unknown] - History of Present History Narrative: Pt had onset of diarrhea this morning and this evening had low blood sugar. Timing: constant Severity: mild Review of Systems - Review of Systems Constitutional: Present: recent illness - UTI. Absent: fever, chills EYE: Present: no symptoms reported ENT: Present: no symptoms reported Respiratory: Present: no symptoms reported Cardiology: Absent: chest pain, edema Gastrointestinal/Abdominal: Present: See HPI. Absent: nausea, vomiting, abdominal pain Genitourinary: Present: dysuria - Has improved. Absent: hematuria Musculoskeletal: Absent: back pain, muscle pain Skin: Absent: rash Neurological: Absent: numbness, tingling Endocrine: Present: no symptoms reported Hematologic/Lymphatic: Present: no symptoms reported Psych: Present: no symptoms reported - Patient's Past Medical History Patient History - Medical: Arthritis, Cataracts, Diabetes Type 2 Insulin Dependent, Dementia, Depression, Hypothyroidism, Osteoporosis, Renal Disease Patient History - Cardiac/Respiratory: Hypertension, Hyperlipidemia Patient History - Cancer: No Hx of Cancer Patient History - Surgical Procedures: T & A, Other Patient History - Other: None LMP (females 10-50): Menopausal - Family History Mother Family History - Medical: Family History - Cardiac/Respiratory: No pertinent hx Family History - Cancer: No pertinent family hx Father Family History - Medical: , Diabetes Type 2 Family History - Cardiac/Respiratory: CVA/Stroke Family History - Cancer: No pertinent family hx Brother Family History - Medical: , Diabetes Type 2 Family History - Cardiac/Respiratory: No pertinent hx Family History - Cancer: No pertinent family hx - Social History Living Situations: home Abuse History: No History of abuse Psych History: No pertinent hx Smoking Status: Never smoker Have you smoked in the past 12 months: No Do you dip or chew tobacco: No Alcohol Use: none Drug Use: none - Immunizations Immunizations Up to Date: Yes Hx Pneumococcal Vaccination: Yes History of Influenza Vaccine: Yes Physical Exam - Physical Exam General Appearance: Present: wd/wn, alert, no apparent distress Head Exam: Present: normal inspection, no evidence of injury Neck: Present: normal inspection, nontender Respiratory: Present: no respiratory distress, no accessory muscle use, lungs clear Cardiovascular/Chest: Present: regular rate, rhythm, no murmur Gastrointestinal/Abdominal: Present: nontender, nondistended, soft, abnormal bowel sounds - hyperactive Extremity Exam: Present: normal inspection, normal range of motion Neurological Exam: Present: alert, oriented, normal mood/affect Skin Exam: Present: normal color, warm/dry Lymphatic Exam: Present: no adenopathy ED Progress - Results and Orders Patient's Lab Results:: I have reviewed the patient's lab results. Results and Orders: Laboratory Tests 07/21/17 07/21/17 07/21/17 21:28 21:28 22:06 WBC 10.4 Hgb 12.2 L Hct 37.5 Plt Count 278 Sodium 133 Potassium 5.0 H Chloride 99 Carbon Dioxide 24.8 BUN 17 Creatinine 1.05 Random Glucose 89 Calcium 10.0 Total Bilirubin 0.3 AST 42 ALT 27 Alkaline Phosphatase 62 Total Protein 6.9 Albumin 3.7 Urine Color Yellow Urine Appearance Slightly cloudy Urine pH 5.5 Ur Specific Bynum 1.025 Urine Protein Negative Urine Glucose (UA) Negative Urine Ketones 5 Urine Blood Negative Urine Nitrate Negative Urine Bilirubin Negative Urine Urobilinogen Normal Ur Leukocyte Esterase 75 H Urine RBC None seen Urine WBC 0-5 Ur Epithelial Cells 5-10 H Calcium Oxalate Crystal Moderate - 2+ H Urine Bacteria 1+ H Urine Culture Comments Culture to follow - Vital Signs Patient's Vital Signs:: I have reviewed the patient's vital signs. Vital Signs: Vital Signs 07/21/17 20:47 Temperature 36.2 C L Pulse Rate 97 Respiratory 16 Rate Blood Pressure 132/70 O2 Sat by Pulse 100 Oximetry - X-Ray X-Ray #1 X-Ray: abdomen Interpretation: Interp. by me X-ray Comments: scattered small a/f levels. - Progress/Reassessment Chief Complaint: Diabetes Related Problem Progress:: Improved Departure Clinical Impression: Diarrhea Qualifiers: Diarrhea type: unspecified type Qualified Code(s): R19.7 - Diarrhea, unspecified - Departure Disposition: [place] self-care Condition: Good Instructions: Diarrhea, Adult, [id number] Additional Instructions: continue to eat normally. Drink plenty of fluids to stay hydrated. Referrals: Angela Echavarria DO [Primary Care Provider] -
[2017-07-21 21:50] LABS: Albumin * 3.7 gm/dl (3.4-5.0); Anion Gap 14.2 mmol/L (6.8-13.8); BUN/Creatinine Ratio 16.2 (9.0-21.6); Bilirubin, Total 0.3 mg/dL (0.0-1.1); Ca. Corrected For Albumin 9.9 mg/dL (8.4-10.2); Carbon Dioxide 24.8 mmol/L (24-32.6); Total Protein 6.9 gm/dL (6.2-8.2)
[2017-07-21 21:51] LABS: Hematocrit 37.5 % (37.0-47.0); Hemoglobin 12.2 gm/dL (12.5-16.0); Mean Cell Volume 92.6 fl (78-100); Mean Corpuscular Hemoglobin 30.1 pg (27-31); Mean Corpuscular Hgb Conc 32.5 g/dl (32-36); Mean Platelet Volume 10.1 fl (6.0-9.5); Platelet Count 278 K/mm3 (150-450); Red Blood Count 4.05 M/mm3 (4.2-5.4); White Blood Count 10.4 K/mm3 (4.0-10.5)
[2017-07-21 21:53] LABS: Total Cells Counted 100
[2017-07-21 22:16] LABS: Urine Bilirubin Negative (NEGATIVE); Urine Blood Negative /ul (NEGATIVE); Urine Ketone 5 mg/dL (NEGATIVE); Urine Nitrite Negative (NEGATIVE); Urine Protein Negative (NEGATIVE); Urine Specific Gravity 1.025 SP.GR. (1.005-1.010); Urine Urobilinogen Normal (NORMAL); Urine pH 5.5 pH (5.0-7.0)
[2017-07-21 22:25] LABS: Atypical (Reactive) Lymph 1 % (0-2); Band 1 % (0-2.0); Basophil 3 % (0-1); Eosinophil 8 % (0-3); Lymphocyte 8 % (20-51); Monocyte 6 % (0-9); Neutrophil 73 % (42-75); Neutrophil # 7.6 K/mm3 (1.3-6.0)
[2017-07-21 22:29] LABS: Urine Appearance Slightly Cloudy; Urine Color Yellow
[2017-07-21 22:30] LABS: Urine Bacteria 1+; Urine RBC None Seen /hpf (0-5); Urine WBC 0-5 /hpf (0-5)
[2017-07-21 22:31] LABS: Platelet Estimate Normal (NORMAL); RBC Morphology Normal (NORMAL)
[2017-07-21 22:32] LABS: Giant Platelets 1+; Polychromasia 1+; Tear Drop Cells Trace
[2017-07-21 23:04] VITALS: BP 122/51
== END 2017-07-21 23:11 | disposition home or self-care (01) ==
LOC: ER 20:33
DX: F03.90 Unspecified dementia, unspecified severity, without behavioral disturbance, psychotic disturbance, mood disturbance, and anxiety; E11.9 Type 2 diabetes mellitus without complications; R19.7 Diarrhea, unspecified; I10 Essential (primary) hypertension; E78.5 Hyperlipidemia, unspecified; Z87.440 Personal history of urinary (tract) infections; E03.9 Hypothyroidism, unspecified

== ENCOUNTER 2018-01-19 15:56 | Observation (INO) ==
[2018-01-19 16:52] LABS: Hematocrit 42.6 % (37.0-47.0); Hemoglobin 13.9 gm/dL (12.5-16.0); Mean Cell Volume 92.6 fl (78-100); Mean Corpuscular Hemoglobin 30.2 pg (27-31); Mean Corpuscular Hgb Conc 32.6 g/dl (32-36); Mean Platelet Volume 9.8 fl (8-12.5); Neutrophil # 7.4 K/mm3 (1.3-6.0); Neutrophil % 74.2 % (42-75.0); Platelet Count 353 K/mm3 (150-450); Red Cell Distribution Width 13.9 % (11.5-14.0)
[2018-01-19 16:55] LABS: Urine Bilirubin Negative (NEGATIVE); Urine Blood Negative /ul (NEGATIVE); Urine Ketone Negative (NEGATIVE); Urine Nitrite Negative (NEGATIVE); Urine Protein 15 mg/dL (NEGATIVE); Urine Urobilinogen Normal (NORMAL)
[2018-01-19 16:57] LABS: Prothrombin Time (Patient) 9.9 Seconds (9.0-11.0)
[2018-01-19 16:59] LABS: Albumin * 4.6 gm/dl (3.4-5.0); Anion Gap 12.3 mmol/L (6.8-13.8); BUN/Creatinine Ratio 10.5 (9.0-21.6); Bilirubin, Total 0.4 mg/dL (0.0-1.1); Calcium * 9.8 mg/dL (7.9-10.9); Carbon Dioxide 28.3 mmol/L (24-32.6); Potassium 4.6 mmol/L (3.4-4.6); Total Protein 7.9 gm/dL (6.2-8.2)
[2018-01-19 17:01] LABS: INR 0.99 INR (0.90-1.10); Partial Thrombolplastin Time 23.1 Seconds (24-32)
[2018-01-19 17:03] LABS: Urine Appearance Clear (CLEAR); Urine Bacteria TRACE; Urine Color Yellow; Urine Hyaline Cast 0-5 /LPF; Urine RBC None Seen /hpf (0-5); Urine WBC None Seen /hpf (0-5)
[2018-01-19 17:10] LABS: Cocaine Ur Negative (NEGATIVE); Urine Barbiturate Negative (NEGATIVE); Urine Benzodiazepines Negative (NEGATIVE); Urine Opiates Negative (NEGATIVE); Urine PCP Negative (NEGATIVE); Urine THC Negative (NEGATIVE)
[2018-01-19] MEDS ORDERED: NORMAL SALINE 1,000 ML IV ONE (17:50)
--- NOTE | 2018-01-19 19:14 | ERNOTE ---
Neuro HPI ER Record Date of Service: 01/19/18 Presenting Symptoms: weakness, confusion Time Seen by Provider: 01/19/18 16:03 Source: family Exam Limitations: clinical condition Immunizations: IMMUNIZATION HX Immunizations Up to Date Yes History of Influenza Vaccine Yes Hx Pneumococcal Vaccination Yes Allergies/Adverse Reactions: Allergies Allergy/AdvReac Type Severity Reaction Status Date / Time tramadol AdvReac Nausea Verified 12/27/17 11:19 Home Medications: HOME MEDICATIONS Aspirin [Aspirin EC] 81 mg PO DAILY 10/20/16 [Last Taken Unknown] Calcium Carbonate/Vitamin D3 [Calcium 500-Vit D3 600 Tablet] 1 ea PO BID [Last Taken Unknown] Cholecalciferol (Vitamin D3) [Vitamin D3] 2,000 unit PO DAILY 10/20/16 [Last Taken Unknown] Levothyroxine Sodium [Synthroid] 50 mcg PO DAILY 10/20/16 [Last Taken Unknown] Memantine HCl [Namenda Xr] 28 mg PO DAILY 10/20/16 [Last Taken Unknown] Donepezil HCl [Aricept] 10 mg PO HS 01/15/17 [Last Taken Unknown] Acetaminophen [Tylenol Arthritis] 650 mg PO QID PRN 05/11/17 [Last Taken Unknown ] Cyanocobalamin (Vitamin B-12) [B-12] 1,000 mcg PO DAILY 05/11/17 [Last Taken Unknown] Mirtazapine [Remeron] 15 mg PO HS 05/11/17 [Last Taken Unknown] Sertraline HCl [Zoloft] 50 mg PO DAILY 05/11/17 [Last Taken Unknown] emollient combination no.97 topical ointment See Label Instructions TP BID g [Last Taken Unknown] insulin glargine (U-100) 100 unit/mL subcutaneous solution See Label Instructions .ROUTE .COMPLEX vial 12/27/17 [Last Taken Unknown] insulin lispro (U-100) 100 unit/mL subcutaneous pen 5 unit SUB-Q .COMPLEX [Last Taken Unknown] pravastatin 20 mg tablet 20 mg PO HS 12/27/17 [Last Taken Unknown] triamcinolone acetonide 0.1 % topical cream 1 applic TP BID 12/27/17 [Last Taken Unknown] menthol 4 % topical gel See Label Instructions .ROUTE .COMPLEX #118 ml 01/12/18 [Last Taken Unknown] metformin 1,000 mg tablet 1,000 mg PO BID #180 tab 01/18/18 [Last Taken Unknown] - History of Present Illness Narrative: Patient presents to the ED for mental status changes and weakness. Daughter here and provides Hx, no real history available from the patient. She was found on the floor at 1:45 today. Was last noted to be normal at noon-time lunch, well over 4 hours ago. She was found on the floor in the position. Normally walks to dining room with walker. Daughter states she was last like this with a UTI. On arrival here she was noted to be weak on the left side and could not hold her left arm or leg off the bed against gravity. Once again out of tPA window so stroke alert not called. Once again no meaningful Hx avaialable from the patient. Onset: >3 hours Context: other - possible fall - Character of Deficits New weakness: Present: LUE, LLE Additional Deficits: Present: weakness Baseline Cognition: Absent: poor alertness Baseline Gait: Present: uses a cane/walker Associated Symptoms: Reports: none - confusion/,not acting normally. Denies: fever/chills Prior Treament: Denies: recently seen Review of Systems - Narrative Narrative: unable to obtain d/t patient condition Medical History (Last Updated 12/27/17 @ 12:00 by Chelle Mantilla RN) Osteoporosis (Chronic) Onset Date: 2011 Hypothyroid (Chronic) Onset Date: Unknown Essential hypertension (Chronic) Onset Date: Unknown Hyperlipidemia (Chronic) Onset Date: Unknown Type II diabetes mellitus (Chronic) Onset Date: Unknown Depression (Chronic) Onset Date: 03/20/17 Chronic kidney disease, stage 3 (Chronic) Onset Date: 2009 Aortic stenosis Onset Date: Unknown H/O aortic valve replacement Onset Date: 12/29/11 Surgical History: Surgical History (Last Updated 12/27/17 @ 12:00 by Chelle Mantilla RN) History of incision and drainage Onset Date: 06/2011 History of open reduction and internal fixation (ORIF) procedure Onset Date: 05/2011 History of tonsillectomy Onset Date: Unknown Family History: Family History (Last Updated 12/27/17 @ 13:19 by Chelle Mantilla RN) Mother No problems noted. Father Diabetes CVA (cerebral vascular accident) Social History: Preferred Language Bur[place]ian Do you have any restorationism or Yes: Yazidism cultural preference? Smoking Status Never smoker Abuse History No History of abuse Psych History No pertinent hx Alcohol Use none Drug Use none Physical Exam - Physical Exam General Appearance: Present: other - alert but not answering normall, seems confused and seems to not respond normally to questions or commands Head Exam: Present: normal inspection, no evidence of injury Eye Exam: Normal inspection: bilateral, PERRL: bilateral Ears, Nose, Throat: Present: normal ENT inspection Neck: Present: other - trachea midline, no vertebral tendenress. Absent: tender posterior midline Respiratory: Present: no respiratory distress, normal breath sounds, no accessory muscle use, lungs clear Cardiovascular/Chest: Present: regular rate, rhythm, normal peripheral pulses Gastrointestinal/Abdominal: Present: normal bowel sounds, nontender, nondistended, soft Back Exam: Absent: CVA tenderness (R), CVA tenderness (L) Extremity Exam: Present: non-tender, other - no deformity Neurological Exam: Present: other - not acting normally. She cannot hold her left arm or leg off the bed against gravity. No clear acute CN deficits. Skin Exam: Present: normal color, warm/dry ED Progress - Results and Orders Patient's Lab Results:: I have reviewed the patient's lab results. - Vital Signs Patient's Vital Signs:: I have reviewed the patient's vital signs. Vital Signs: Vital Signs 01/19/18 16:08 01/19/18 16:16 Temperature 36.6 C 36.6 C Pulse Rate 94 79 Respiratory Rate 16 16 Blood Pressure 146/77 146/77 O2 Sat by Pulse Oximetry 94 94 - EKG EKG: NSR EKG read: Interp. by me EKG Comments: NSR with non-specific changes, no clear evidence of STEMI - X-Ray X-Ray #1 X-Ray: chest Interpretation: Interp. by me X-ray Comments: No clear acute pneumonia, no real time radiology reads. - CT/Ultrasound CT/Ultrasound Narrative: I reviewed head CT report, no acute ICH - Progress/Reassessment Chief Complaint: Altered Mental Status Progress Note-Subjective: 01/19/18 19:11 I was informed patient was moving her left side more. This very well may have been the case as when she turned over she seemed to hold her left arm up and move her left leg with with commanded holding her arm and leg up exam minimally changed. She is out of a tPA window, no indication for stroke team consult at this time. She needs hospitalization. Daughter states that she is not back to her normal self. D//W Dr Velazquez, will admit. Family agreeable. Departure Clinical Impression: Stroke-like symptoms, Altered mental status - Departure Disposition: Still a patient Condition: Fair
--- NOTE | 2018-01-19 20:12 | HP ---
Chief Complaint - Chief Complaint Date of Service: 01/19/18 Time of Service: 20:12 Chief Complaint: " Fall, Confusion". Source of HPI- Pt; unreliable, ERP notes, pt's daughter; Margaret. History of Present Illness: Mrs. Horner is a 82-yr-old WF pt of Dr. Angela Echavarria with a PMH of: Aortic Stenosis s/p AVR, Depression, DM II, HTN, HLD, Hypothyroidism and Osteoporosis. The pt is a [facility]ci care resident at [facility]. History is unobtainable from the pt due to mild cognitive impairment and therefore, pt' s daughter- Margaret provided most of the information. Margaret states that the pt was her normal self until after lunch hours, when she was found on the floor in a position. She appeared very confused and had a difficult time following directions. Margaret states that when she tried to talk to her, pt could not answer and stared blankly to the right side. She states that pt appeared very exhausted and could not recognize her as daughter. She tried to give her her sip of water, but she could not hold the water bottle and could not comprehend that she needed to drink. Daughter reports that pt is normally is independent and uses a walker. But today, it took three people to assist her to the car to be brought to the hospital. Margaret states that her behavior was consistent with whenever she has a UTIs or any infection, but is concerned as no imaging or lab tests revealed so. She states about 1 yr ago, pt acted in similar manner and was found to have dental carries which led to all tooth extraction of her lower jaw. She became perfectly normal after that. Today, there were no reports of fevers, chill, nausea, vomiting and abdominal pain. She states according to the [facility] staff, the pt has had diarrhea for the last two days. At the ED, labs involving CBC, CMP, Coags, UA, Ammonia,TSH and Toxicology were unremarkable. The CXR did not indicate consolidation or infiltrates. The head CT also did not have any acute intracranial findings. At the time of exam, she can recognize daughter at bedside and can answer questions appropriately, even though she is noted to have a delayed response. She will be admitted under observation due to clinical signs of TIA which can progress to ischemic stroke and may require additional neuroimaging. Medical History (Last Reviewed 01/19/18 @ 20:13 by Eleni Cleaning RN) Osteoporosis (Chronic) Onset Date: 2011 Hypothyroid (Chronic) Onset Date: Unknown Essential hypertension (Chronic) Onset Date: Unknown Hyperlipidemia (Chronic) Onset Date: Unknown Type II diabetes mellitus (Chronic) Onset Date: Unknown Depression (Chronic) Onset Date: 03/20/17 Chronic kidney disease, stage 3 (Chronic) Onset Date: 2009 Aortic stenosis Onset Date: Unknown H/O aortic valve replacement Onset Date: 12/29/11 Surgical History: Surgical History (Last Reviewed 01/19/18 @ 20:14 by Eleni Cleaning RN) History of incision and drainage Onset Date: 06/2011 History of open reduction and internal fixation (ORIF) procedure Onset Date: 05/2011 History of tonsillectomy Onset Date: Unknown Family History: Family History (Last Reviewed 01/19/18 @ 20:15 by Eleni Cleaning RN) Mother No problems noted. Father Diabetes CVA (cerebral vascular accident) Social History: Preferred Language Ivorian Do you have any yazidi or Yes: Latter-Day cultural preference? Smoking Status Never smoker Abuse History No History of abuse Psych History No pertinent hx Alcohol Use none Drug Use none Review Of Systems (GEN) - Review of Systems Additional Comments: ROS unobtainable due to AMS. Immunizations: IMMUNIZATION HX Immunizations Up to Date Yes History of Influenza Vaccine Yes Hx Pneumococcal Vaccination Yes Allergies/Adverse Reactions: Allergies Allergy/AdvReac Type Severity Reaction Status Date / Time tramadol AdvReac Nausea Verified 01/19/18 20:15 Home Medications: HOME MEDICATIONS Aspirin [Aspirin EC] 81 mg PO DAILY 10/20/16 [Last Taken Unknown] Calcium Carbonate/Vitamin D3 [Calcium 500-Vit D3 600 Tablet] 1 ea PO BID [Last Taken Unknown] Cholecalciferol (Vitamin D3) [Vitamin D3] 2,000 unit PO DAILY 10/20/16 [Last Taken Unknown] Levothyroxine Sodium [Synthroid] 50 mcg PO DAILY 10/20/16 [Last Taken Unknown] Donepezil HCl [Aricept] 10 mg PO HS 01/15/17 [Last Taken Unknown] Acetaminophen [Tylenol Arthritis] 650 mg PO QID PRN 05/11/17 [Last Taken Unknown ] Cyanocobalamin (Vitamin B-12) [B-12] 1,000 mcg PO DAILY 05/11/17 [Last Taken Unknown] Mirtazapine [Remeron] 15 mg PO HS 05/11/17 [Last Taken Unknown] Sertraline HCl [Zoloft] 50 mg PO DAILY 05/11/17 [Last Taken Unknown] emollient combination no.97 topical ointment See Label Instructions TP BID g [Last Taken Unknown] insulin glargine (U-100) 100 unit/mL subcutaneous solution See Label Instructions .ROUTE .COMPLEX vial 12/27/17 [Last Taken Unknown] insulin lispro (U-100) 100 unit/mL subcutaneous pen 5 unit SUB-Q .COMPLEX [Last Taken Unknown] metformin 1,000 mg tablet 1,000 mg PO BID #180 tab 01/18/18 [Last Taken Unknown] Clobetasol Propionate/Emoll [Clobetasol Emollient 0.05% Crm] 1 appl TP DAILY PRN 01/19/18 [Last Taken Unknown] Exam - Exam Vital Signs: Vital Signs - Last Taken Temp 36.6 C 01/19/18 16:16 Pulse 94 01/19/18 16:16 Resp 16 01/19/18 16:16 BP 146/77 01/19/18 16:16 Pulse Ox 94 01/19/18 16:16 Constitutional: Present: Alert, No distress, Elderly ENT Exam: Present: normal ENT inspection, dry mucous membranes Eye Exam: bilateral eye: normal inspection, PERRL Neck: Present: non-tender, full range of motion, supple Back Exam: Present: normal inspection, no CVA tenderness Breasts: Present: Exam deferred Respiratory: Present: normal breath sounds, no accessory muscle use, No rales, No wheezing Cardiovascular/Chest: Present: normal peripheral pulses, regular rate, rhythm, no edema Abdomen: Present: Normal bowel sounds, soft, nontender /Rectal: Present: Exam deferred Extremity: Present: normal range of motion, non-tender, normal inspection, no pedal edema Skin Exam: Present: warm/dry, no cyanosis Lymphatic: Present: no adenopathy Neurologic: Present: alert, other - muscle stength BUE 2/5.. Absent: abnormal gait, facial droop, motor weakness Appearance: Present: impaired insight Eye contact: Present: cooperative, good eye contact, decreased rate of speech Thoughts: Present: no apparent hallucination Diagnostic Studies: Abnormal Lab Results 01/19/18 01/19/18 01/19/18 Range/Units 16:38 16:42 16:42 Lymphocytes % 8.9 L (20-51) % Monocytes % 11.6 H (0.0-9) % Eosinophils % 3.7 H (0.0-3.0) % Basophils % 1.3 H (0.0-1.0) % Neutrophils # 7.4 H (1.3-6.0) K/mm3 Lymphocytes # 0.89 L (1.5-3.5) k/mm3 Monocytes # 1.2 H (0.0-1.0) k/mm3 PTT ([place]) (24-32) Seconds Chloride 96 L (97-106) mmol/L Est GFR (Non-Af Amer) 53 L (60-130) mL/min Lactic Acid, Venous (0.4-2.0) mmol/L ALT 16 L (19-67) U/L Alkaline Phosphatase 49 L (50-170) U/L Urine Protein 15 H (NEGATIVE) mg/dL Hyaline Casts 0-5 H (NONE) /LPF 01/19/18 01/19/18 Range/Units 16:42 16:42 Lymphocytes % (20-51) % Monocytes % (0.0-9) % Eosinophils % (0.0-3.0) % Basophils % (0.0-1.0) % Neutrophils # (1.3-6.0) K/mm3 Lymphocytes # (1.5-3.5) k/mm3 Monocytes # (0.0-1.0) k/mm3 PTT ([place]) 23.1 L (24-32) Seconds Chloride (97-106) mmol/L Est GFR (Non-Af Amer) (60-130) mL/min Lactic Acid, Venous 2.1 H (0.4-2.0) mmol/L ALT (19-67) U/L Alkaline Phosphatase (50-170) U/L Urine Protein (NEGATIVE) mg/dL Hyaline Casts (NONE) /LPF Laboratory Results WBC 10.0 K/mm3 (4.0-10.5) 01/19/18 16:42 RBC 4.60 M/mm3 (4.2-5.4) 01/19/18 16:42 Hgb 13.9 gm/dL (12.5-16.0) 01/19/18 16:42 Hct 42.6 % (37.0-47.0) 01/19/18 16:42 MCV 92.6 fl (78-100) 01/19/18 16:42 MCH 30.2 pg (27-31) 01/19/18 16:42 MCHC 32.6 g/dl (32-36) 01/19/18 16:42 RDW 13.9 % (11.5-14.0) 01/19/18 16:42 Plt Count 353 K/mm3 (150-450) 01/19/18 16:42 MPV 9.8 fl (8-12.5) 01/19/18 16:42 Immature Gran % (Auto) 0.30 % (0.001-0.429) 01/19/18 16:42 Immature Gran # (Auto) 0.03 K/mm3 (0.000-0.0310) 01/19/18 16:42 Neutrophils % 74.2 % (42-75.0) 01/19/18 16:42 Lymphocytes % 8.9 % (20-51) L 01/19/18 16:42 Monocytes % 11.6 % (0.0-9) H 01/19/18 16:42 Eosinophils % 3.7 % (0.0-3.0) H 01/19/18 16:42 Basophils % 1.3 % (0.0-1.0) H 01/19/18 16:42 Nucleated RBC % 0.0 k/mm3 (0-1) 01/19/18 16:42 Neutrophils # 7.4 K/mm3 (1.3-6.0) H 01/19/18 16:42 Lymphocytes # 0.89 k/mm3 (1.5-3.5) L 01/19/18 16:42 Monocytes # 1.2 k/mm3 (0.0-1.0) H 01/19/18 16:42 Eosinophils # 0.4 k/mm3 (0.0-0.7) 01/19/18 16:42 Absolute Basophils 0.1 k/mm3 (0.0-0.1) 01/19/18 16:42 PT 9.9 Seconds (9.0-11.0) 01/19/18 16:42 INR (Anticoag Therapy) 0.99 INR (0.90-1.10) 01/19/18 16:42 PTT ([place]) 23.1 Seconds (24-32) L 01/19/18 16:42 Sodium 132 mmol/L (132-142) 01/19/18 16:42 Plasma Sodium 132 mmol/L (130-142) 01/19/18 16:42 Potassium 4.6 mmol/L (3.4-4.6) 01/19/18 16:42 Chloride 96 mmol/L (97-106) L 01/19/18 16:42 Carbon Dioxide 28.3 mmol/L (24-32.6) 01/19/18 16:42 Anion Gap 12.3 mmol/L (6.8-13.8) 01/19/18 16:42 BUN 11 mg/dL (3-23) 01/19/18 16:42 Creatinine 1.05 mg/dL (0.4-1.4) 01/19/18 16:42 Est GFR (Non-Af Amer) 53 mL/min (60-130) L 01/19/18 16:42 BUN/Creatinine Ratio 10.5 (9.0-21.6) 01/19/18 16:42 Random Glucose 76 mg/dL (70-110) 01/19/18 16:42 Lactic Acid, Venous 1.2 mmol/L (0.4-2.0) 01/19/18 19:25 Calcium 9.8 mg/dL (7.9-10.9) 01/19/18 16:42 Calcium Adj for Albumin 9.0 mg/dL (8.4-10.2) 01/19/18 16:42 Total Bilirubin 0.4 mg/dL (0.0-1.1) 01/19/18 16:42 AST 17 U/L (0-48) 01/19/18 16:42 ALT 16 U/L (19-67) L 01/19/18 16:42 Alkaline Phosphatase 49 U/L (50-170) L 01/19/18 16:42 Ammonia Less than 17.0 mcmol/L (11-35) 01/19/18 16:42 Total Protein 7.9 gm/dL (6.2-8.2) 01/19/18 16:42 Albumin 4.6 gm/dl (3.4-5.0) 01/19/18 16:42 TSH 1.581 uIU/mL (0.358-3.74) 01/19/18 18:12 Urine Color Yellow 01/19/18 16:38 Urine Appearance Clear (CLEAR) 01/19/18 16:38 Urine pH 6.0 pH (5.0-7.0) 01/19/18 16:38 Ur Specific [place] 1.010 SP.GR. (1.005-1.010) 01/19/18 16:38 Urine Protein 15 mg/dL (NEGATIVE) H 01/19/18 16:38 Urine Glucose (UA) Negative mg/dL (NEGATIVE) 01/19/18 16:38 Urine Ketones Negative mg/dL (NEGATIVE) 01/19/18 16:38 Urine Blood Negative /ul (NEGATIVE) 01/19/18 16:38 Urine Nitrate Negative (NEGATIVE) 01/19/18 16:38 Urine Bilirubin Negative mg/dl (NEGATIVE) 01/19/18 16:38 Prot Sulfosalicylic Acd Negative mg/dL (0) 01/19/18 16:38 Urine Urobilinogen Normal EU/dl (NORMAL) 01/19/18 16:38 Ur Leukocyte Esterase Negative /ul (NEGATIVE) 01/19/18 16:38 Urine RBC None seen /hpf (0-5) 01/19/18 16:38 Urine WBC None seen /hpf (0-5) 01/19/18 16:38 Ur Epithelial Cells None seen /hpf (0-5) 01/19/18 16:38 Urine Bacteria Trace (NONE) 01/19/18 16:38 Hyaline Casts 0-5 /LPF (NONE) H 01/19/18 16:38 Urine Culture Comments Culture to follow 01/19/18 16:38 Urine Opiates Screen Negative (NEGATIVE) 01/19/18 16:38 Barbiturate Screen Negative (NEGATIVE) 01/19/18 16:38 Ur Phencyclidine Scrn Negative (NEGATIVE) 01/19/18 16:38 Urine Amphetamine Negative (NEGATIVE) 01/19/18 16:38 U Benzodiazepines Scrn Negative (NEGATIVE) 01/19/18 16:38 Urine Cocaine Screen Negative (NEGATIVE) 01/19/18 16:38 Urine Marijuana (THC) Negative (NEGATIVE) 01/19/18 16:38 Assessment/Plan - Assessment/Plan (1) Transient ischemic attack (TIA) Assessment: Pt is a 82-yr-old WF who presented with transient episodes of neurological dysfunction involving weakness, aphasia noted which was noted -with trouble understanding and speaking, and gaze preference. At the time of exam, the pt appears more alert, is able to follow commands and recognizes family members at bedside. Speech is clear. She requires nursing maximum assistance of [address] CT did not indicate any CVA. She will need MRI of the brain due to its increased sensitivity and also to help identify if she is at high short term risk for stroke. She will remain on cardiac telemetry monitoring to identify if a-fib is the causative also. Nursing will monitor neuro checks q 4 hrs. Will involve PT/OT to evaluate for strength and need for additional rehabilitation services. Problem: Acute (2) Dehydration Assessment: Is also likely contribyting to her symptoms given reports of diarrhea and hypochloremia. Will provide IVF hydration. Monitor V.S, check BMP in am Problem: Acute (3) Type II diabetes mellitus Problem: Chronic (4) Aortic stenosis Assessment: Not on anticoagulation therapy due to frequent falls and a prior fall that led to orbital hematoma. Problem: Chronic (5) Osteoporosis Problem: Chronic (6) Hypothyroid Problem: Chronic (7) Essential hypertension Problem: Chronic (8) Hyperlipidemia Problem: Chronic
[2018-01-20] MEDS ORDERED: LORazepam 2 MG/ML DISP.SYRIN IV ONE (10:00)
--- NOTE | 2018-01-20 12:34 | DS ---
(1) Altered mental status Problem: Resolved (2) Aortic stenosis Problem: Chronic (3) Diabetes mellitus Problem: Chronic (4) Depression Problem: Chronic (5) Essential hypertension Problem: Chronic (6) Hypothyroid Problem: Chronic (7) Dehydration Problem: Resolved (8) Chronic kidney disease, stage 3 Problem: Chronic (9) Osteoporosis Problem: Chronic (10) Type II diabetes mellitus Problem: Chronic Qualifiers: Chronic kidney disease stage: stage 3 (moderate) Description of Stay: Umm Horner is a 82-yr-old WF pt of Dr. Angela Echavarria with a PMH of: Aortic Stenosis s/p AVR, Depression, DM II, HTN, HLD, Hypothyroidism and Osteoporosis. The pt is a detention care resident at [facility]. History is unobtainable from the pt due to mild cognitive impairment and therefore, pt' s daughter- Margaret provided most of the information. Margaret states that the pt was her normal self until after lunch hours, when she was found on the floor in a position. She appeared very confused and had a difficult time following directions. Margaret states that when she tried to talk to her, pt could not answer and stared blankly to the right side. She states that pt appeared very exhausted and could not recognize her as daughter. She tried to give her her sip of water, but she could not hold the water bottle and could not comprehend that she needed to drink. Daughter reports that pt is normally is independent and uses a walker. But today, it took three people to assist her to the car to be brought to the hospital. Margaret states that her behavior was consistent with whenever she has a UTIs or any infection, but is concerned as no imaging or lab tests revealed so. She states about 1 yr ago, pt acted in similar manner and was found to have dental carries which led to all tooth extraction of her lower jaw. She became perfectly normal after that. Today, there were no reports of fevers, chill, nausea, vomiting and abdominal pain. She states according to the [facility] staff, the pt has had diarrhea for the last two days. At the ED, labs involving CBC, CMP, Coags, UA, Ammonia,TSH and Toxicology were unremarkable. The CXR did not indicate consolidation or infiltrates. The head CT also did not have any acute intracranial findings. At the time of exam, she can recognize daughter at bedside and can answer questions appropriately, even though she is noted to have a delayed response. She was admitted for observation and had an MRI this morning- IMPRESSION: 1. No evidence of acute infarct or intracranial mass. 2. Probable age-related cerebral and cerebellar volume loss, and chronic microvascular ischemic changes of the brain. 3. Ventriculomegaly without sulcal effacement, suggestive of normal pressure hydrocephalus. 4. Incidental right-sided mastoid effusion, and mucosal thickening of the right ethmoid air cells. 5. Examination limited by motion, especially affecting the GRE images. There is a single focus of susceptibility at the cortical surface of the left frontal lobe. Consider early changes of cerebral amyloid angiopathy. Other considerations also include focus of hemosiderin from prior hemorrhage, versus incidental small peripheral cavernous angioma. As per daughter her mother is doing better this morning. She will be discharged and will get an appointment with a neurologist as an outpatient. Procedures Performed: none Results and Findings: Pending Mircobiology Results 01/19/18 16:38 Urine,Catheterized Urine Culture - Preliminary No Growth Lab Pending Results 01/19/18 16:38: Urine Color Yellow, Urine Appearance Clear, Urine pH 6.0, Ur Specific [place] 1.010, Urine Protein 15 H, Urine Glucose (UA) Negative, Urine Ketones Negative, Urine Blood Negative, Urine Nitrate Negative, Urine Bilirubin Negative, Prot Sulfosalicylic Acd Negative, Urine Urobilinogen Normal, Ur Leukocyte Esterase Negative, Urine RBC None seen, Urine WBC None seen, Ur Epithelial Cells None seen, Urine Bacteria Trace, Hyaline Casts 0-5 H, Urine Culture Comments Culture to follow 01/19/18 16:38: Urine Opiates Screen Negative, Barbiturate Screen Negative, Ur Phencyclidine Scrn Negative, Urine Amphetamine Negative, U Benzodiazepines Scrn Negative, Urine Cocaine Screen Negative, Urine Marijuana (THC) Negative 01/19/18 16:42: WBC 10.0, RBC 4.60, Hgb 13.9, Hct 42.6, MCV 92.6, MCH 30.2, MCHC 32.6, RDW 13.9, Plt Count 353, MPV 9.8, Immature Gran % (Auto) 0.30, Immature Gran # (Auto) 0.03, Neutrophils % 74.2, Lymphocytes % 8.9 L, Monocytes % 11.6 H, Eosinophils % 3.7 H, Basophils % 1.3 H, Nucleated RBC % 0.0, Neutrophils # 7.4 H, Lymphocytes # 0.89 L, Monocytes # 1.2 H, Eosinophils # 0.4 , Absolute Basophils 0.1 01/19/18 16:42: Sodium 132, Plasma Sodium 132, Potassium 4.6, Chloride 96 L, Carbon Dioxide 28.3, Anion Gap 12.3, BUN 11, Creatinine 1.05, Est GFR (Non-Af Amer) 53 L, BUN/Creatinine Ratio 10.5, Random Glucose 76, Calcium 9.8, Calcium Adj for Albumin 9.0, Total Bilirubin 0.4, AST 17, ALT 16 L, Alkaline Phosphatase 49 L, Total Protein 7.9, Albumin 4.6 01/19/18 16:42: Lactic Acid, Venous 2.1 H 01/19/18 16:42: PT 9.9, INR (Anticoag Therapy) 0.99, PTT ([place]) 23.1 L 01/19/18 16:42: Ammonia Less than 17.0 01/19/18 18:12: TSH 1.581 01/19/18 19:25: Lactic Acid, Venous 1.2 Discharge Location: [facility] Disposition: Home self-care Condition: Fair Discharge Activity: Activity as tolerated Discharge Diet: Consistent carbs Referrals: Angela Echavarria DO [Primary Care Provider] - Problem Oriented Discharge Instructions to Patient/Family: Stroke Prevention, [id number] Additional Patient Instructions (free text): Please make an an appointment with Neurology for dementia- r/o NPH, cannot rule put frontal lesion. --[facility] to make Neurology appt per PINEDA Connelly RN. follow up with PCP in 1 week--appt with Dr. Echavarria 02/01/18 @12:45 pm. Complete Home Medications List: Complete Home Medication List: Aspirin [Aspirin EC] 81 mg PO DAILY 10/20/16 Calcium Carbonate/Vitamin D3 [Calcium 500-Vit D3 600 Tablet] 1 ea PO BID Cholecalciferol (Vitamin D3) [Vitamin D3] 2,000 unit PO DAILY 10/20/16 Levothyroxine Sodium [Synthroid] 50 mcg PO DAILY 10/20/16 Donepezil HCl [Aricept] 10 mg PO HS 01/15/17 Acetaminophen [Tylenol Arthritis] 650 mg PO QID PRN 05/11/17 Cyanocobalamin (Vitamin B-12) [B-12] 1,000 mcg PO DAILY 05/11/17 Mirtazapine [Remeron] 15 mg PO HS 05/11/17 Sertraline HCl [Zoloft] 50 mg PO DAILY 05/11/17 emollient combination no.97 topical ointment See Label Instructions TP BID g insulin glargine (U-100) 100 unit/mL subcutaneous solution See Label Instructions .ROUTE .COMPLEX vial 12/27/17 insulin lispro (U-100) 100 unit/mL subcutaneous pen 5 unit SUB-Q .COMPLEX metformin 1,000 mg tablet 1,000 mg PO BID #180 tab 01/18/18 Clobetasol Propionate/Emoll [Clobetasol Emollient 0.05% Crm] 1 appl TP DAILY PRN 01/19/18
[2018-01-20 15:05] VITALS: BP 156/77
== END 2018-01-20 15:20 | disposition home or self-care (01) ==
LOC: ER 15:56 → MS 15:56
PROVIDERS: ADMIT Internal Medicine; ATTEND Internal Medicine
DX: M81.0 Age-related osteoporosis without current pathological fracture; E86.0 Dehydration; E11.9 Type 2 diabetes mellitus without complications; R41.82 Altered mental status, unspecified; Z68.22 Body mass index [BMI] 22.0-22.9, adult; I10 Essential (primary) hypertension; N18.3 Chronic kidney disease, stage 3 (moderate); I12.9 Hypertensive chronic kidney disease with stage 1 through stage 4 chronic kidney disease, or unspecified chronic kidney disease; E03.9 Hypothyroidism, unspecified
CPT/HCPCS: 36415; 70450; 70553; 71010; 71045; 73502; 80053; 80307; 81001; 82140; 83605; 84443; 85025; 85610; 85730; 87081; 87086; 93005; 96361; 96374; 97116; 97161; 97166; 97530; 99284; G0378; G0479; G8978; G8979; G8980; G8987; G8988; G8989

== ENCOUNTER 2018-04-18 22:46 | Observation (INO) | payer MEDICARE ==
[2018-04-18] MEDS ORDERED: NORMAL SALINE 1,000 ML IV ONE (22:53)
[2018-04-18 23:12] LABS: Hematocrit 32.6 % (37.0-47.0); Hemoglobin 10.7 gm/dL (12.5-16.0); Mean Cell Volume 97.6 fl (78-100); Mean Corpuscular Hgb Conc 32.8 g/dl (32-36); Mean Platelet Volume 10.1 fl (8-12.5); Neutrophil # 7.9 K/mm3 (1.3-6.0); Platelet Count 252 K/mm3 (150-450); Red Blood Count 3.34 M/mm3 (4.2-5.4); Red Cell Distribution Width 13.4 % (11.5-14.0)
[2018-04-18 23:14] LABS: Urine Bilirubin Negative (NEGATIVE); Urine Blood Negative /ul (NEGATIVE); Urine Ketone 5 mg/dL (NEGATIVE); Urine Nitrite Negative (NEGATIVE); Urine Protein Negative (NEGATIVE); Urine Specific Gravity >=1.030 SP.GR. (1.005-1.010); Urine Urobilinogen Normal (NORMAL)
[2018-04-18 23:23] LABS: Urine Amorphous Sediment Few - 1+ (NONE-FEW); Urine Appearance Clear (CLEAR); Urine Bacteria TRACE; Urine Color Yellow; Urine Hyaline Cast TRACE /LPF; Urine RBC None Seen /hpf (0-5); Urine WBC None Seen /hpf (0-5)
[2018-04-18 23:30] LABS: ALT 18 U/L (19-67); AST 15 U/L (0-48); Albumin * 3.2 gm/dl (3.4-5.0); Alkaline Phosphatase * 44 U/L (50-170); Bilirubin, Total 0.2 mg/dL (0.0-1.1); Blood Urea Nitrogen 20 mg/dL (3-23); Calcium * 8.7 mg/dL (7.9-10.9); Carbon Dioxide 25.8 mmol/L (24-32.6); Chloride 101 mmol/L (97-106); Glucose * 173 mg/dL (70-110); Potassium 3.8 mmol/L (3.4-4.6); Sodium 136 mmol/L (132-142); Total Protein 5.8 gm/dL (6.2-8.2); Troponin I Less than 0.017 ng/mL (0.00-0.10)
--- NOTE | 2018-04-19 01:09 | ERNOTE ---
Medical Problem HPI - Narrative Date of Service: 04/19/18 - General Chief Complaint: Diabetes Related Problem Time Seen by Provider: 04/18/18 22:52 Source: patient, family Exam Limitations: no limitations - Immun/Allergies/Home Medications Immunizations: IMMUNIZATION HX Immunizations Up to Date Yes History of Influenza Vaccine More Information Required Hx Pneumococcal Vaccination More Information Required Allergies/Adverse Reactions: Allergies tramadol Adverse Reaction (Verified 02/11/18 22:27) Nausea Home Medications: HOME MEDICATIONS Levothyroxine Sodium [Synthroid] 50 mcg PO DAILY 10/20/16 [Last Taken Unknown] Donepezil HCl [Aricept] 10 mg PO HS 01/15/17 [Last Taken Unknown] Cyanocobalamin (Vitamin B-12) [B-12] 1,000 mcg PO DAILY 05/11/17 [Last Taken Unknown] Mirtazapine [Remeron] 15 mg PO HS 05/11/17 [Last Taken Unknown] emollient combination no.97 topical ointment See Rx Instructions TP BID g 12/27/17 [Last Taken Unknown] metformin 1,000 mg tablet 1,000 mg PO BID #180 tab 01/18/18 [Last Taken Unknown] aspirin 81 mg tablet,delayed release 81 mg PO DAILY #30 tab 03/07/18 [Last Taken Unknown] acetaminophen ER 650 mg tablet,extended release 650 mg PO QID #120 tab 03/08/18 [Last Taken Unknown] calcium carbonate-vitamin D3 600 mg (1,500 mg)-800 unit tablet 1 tab PO BID #60 tab 03/08/18 [Last Taken Unknown] cholecalciferol (vitamin D3) 2,000 unit tablet 2,000 unit PO DAILY #30 tab 03/08/18 [Last Taken Unknown] insulin lispro (U- 100) 100 unit/mL subcutaneous pen 5 unit SUB-Q TIDWM #3 ml 03/08/18 [Last Taken Unknown] pen needle, diabetic 31 gauge x 1/4" See Dose Instructions .ROUTE .MEDSUPPLY #450 ea 03/08/18 [Last Taken Unknown] insulin glargine (U-100) 100 unit/mL (3 mL) subcutaneous pen 7 unit SUB-Q Q12H #15 ml 03/09/18 [Last Taken Unknown] sertraline 50 mg tablet 50 mg PO DAILY #90 tab 03/14/18 [Last Taken Unknown] Carbamide Peroxide [Earwax Treatment Drops] 5 drop OT DAILY 04/18/18 [Last Taken Unknown] Clobetasol Propionate/Emoll [Clobetasol Emollient 0.05% Crm] 1 appl TP DAILY PRN 04/18/18 [Last Taken Unknown] Syringe, Disposable, 6 ml [Monoject Syringe] 1 each MC DAILY 04/18/18 [Last Taken Unknown] levETIRAcetam [Keppra] 500 mg PO BID 04/18/18 [Last Taken Unknown] - History of Present History Narrative: patientient comes from dementia unit with cc of hypoglycemia treated by ems, continues to be someulent, family relates this is her normal activty after an episode, known hx of insulin dependant Timing: constant Severity: moderate Modifying Factors - (Improves): Present: medication Modifying Factors - (Worsens): Present: other - low blood sugar Review of Systems - Narrative Narrative: alterred mental status - Review of Systems Constitutional: Present: See HPI, fatigue, malaise, decreased activity level EYE: Present: no symptoms reported ENT: Present: no symptoms reported Respiratory: Present: no symptoms reported Cardiology: Present: no symptoms reported Gastrointestinal/Abdominal: Present: no symptoms reported Genitourinary: Present: no symptoms reported Musculoskeletal: Present: no symptoms reported Skin: Present: no symptoms reported Neurological: Present: See HPI, weakness, other - alterred mental status due to dementia Endocrine: Present: no symptoms reported Hematologic/Lymphatic: Present: no symptoms reported Psych: Present: no symptoms reported All Other Systems: All systems neg except as marked Medical History (Last Updated 04/18/18 @ 23:23 by Violette Baum RN) Dementia (Chronic) Osteoporosis (Chronic) Onset Date: 2011 Hypothyroid (Chronic) Onset Date: Unknown Essential hypertension (Chronic) Onset Date: Unknown Hyperlipidemia (Chronic) Onset Date: Unknown Type II diabetes mellitus (Chronic) Onset Date: Unknown Depression (Chronic) Onset Date: 03/20/17 Chronic kidney disease, stage 3 (Chronic) Onset Date: 2009 Seizure Aortic stenosis Onset Date: Unknown Surgical History: Surgical History (Last Reviewed 04/18/18 @ 23:23 by Violette Baum RN) H/O aortic valve replacement Onset Date: 12/29/11 History of incision and drainage Onset Date: 06/[address] Wilkerson History of open reduction and internal fixation (ORIF) procedure Onset Date: 05/2011 History of tonsillectomy Onset Date: Unknown as a child Family History: Family History (Last Reviewed 04/18/18 @ 23:23 by Violette Baum RN) Father , age 75 Diabetes CVA (cerebral vascular accident) Mother No problems noted. Social History: Preferred Language Polish Do you have any zoroastrianism or pt unable to provide answer cultural preference? Smoking Status Unknown if ever smoked Have you smoked in the past 12 No months Do you dip or chew tobacco No Abuse History No History of abuse Psych History No pertinent hx Alcohol Use none Drug Use none (Last Updated 02/15/18 @ 17:09 by Angela Echavarria DO) No Social History Section defined Physical Exam - Physical Exam General Appearance: Present: sleeping/easy to arouse Head Exam: Present: normal inspection, no evidence of injury Eye Exam: Normal inspection: bilateral, PERRL: bilateral, EOMI: bilateral Ears, Nose, Throat: Present: normal ENT inspection, normal pharynx Neck: Present: normal inspection, nontender Respiratory: Present: no respiratory distress, normal breath sounds, no accessory muscle use, chest nontender, lungs clear Cardiovascular/Chest: Present: regular rate, rhythm, no murmur, normal peripheral pulses Gastrointestinal/Abdominal: Present: normal bowel sounds, nontender, nondistended, soft, no organomegaly Back Exam: Present: normal inspection, normal range of motion, no CVA tenderness, no vertebral tenderness Extremity Exam: Present: normal inspection, non-tender, normal range of motion, no edema Neurological Exam: Present: disoriented to person, disoriented to time, disoriented to place, disoriented to situation Skin Exam: Present: normal color, warm/dry Lymphatic Exam: Present: no adenopathy ED Progress - Date and Time Seen: Date and Time: 04/19/18 01:06 patient blood sugar returns to normal, remains somulent - Results and Orders Patient's Lab Results:: I have reviewed the patient's lab results. - Vital Signs Patient's Vital Signs:: I have reviewed the patient's vital signs. Vital Signs: Vital Signs 04/18/18 22:47 04/18/18 22:53 04/18/18 23:19 Temperature 35.9 C L Pulse Rate 84 73 70 Respiratory Rate 20 14 Blood Pressure 110/46 110/46 O2 Sat by Pulse Oximetry 98 98 04/18/18 23:23 Temperature Pulse Rate 70 Respiratory Rate 12 Blood Pressure 107/57 O2 Sat by Pulse Oximetry 99 - EKG EKG read: Interp. by me - Progress/Reassessment Chief Complaint: Diabetes Related Problem Progress:: Unchanged - Transfer of Care Expected Disposition: Admit Plan - Plan Plan: discussed with dr lin, accepted to admit to observation, family confirms patient remains dnr status, family also refuse head ct Departure Clinical Impression: Hypoglycemia due to type 1 diabetes mellitus - Departure Disposition: Still a patient Condition: Fair Referrals: Angela Echavarria DO [Primary Care Provider] -
[2018-04-19] MEDS ORDERED: GLUCAGON,HUMAN RECOMBINANT 1 MG VIAL IV ONE (03:01)
[2018-04-19] MEDS ORDERED: DEXTROSE 50%-WATER 50 ML SYRG IV ONE (03:01)
[2018-04-19] MEDS ORDERED: DEXTROSE 50%-WATER 50 ML SYRG ONE (03:06)
[2018-04-19] MEDS: DEXTROSE 5 % IN WATER 1,000 ML IV PRN ×2 (03:08→10:59)
[2018-04-19] MEDS ORDERED: CLOBETASOL PROPIONATE/EMOLL 60 APPL TUBE TP PRN (08:34)
[2018-04-19] MEDS ORDERED: CLOBETASOL PROPIONATE 15 APPL TUBE TP PRN (09:00)
[2018-04-19] MEDS: ACETAMINOPHEN 650 MG TABLET PO SCH ×4 (10:55→20:30)
[2018-04-19] MEDS: LEVOTHYROXINE SODIUM 50 MCG TABLET PO SCH (10:56)
[2018-04-19] MEDS: ASPIRIN 81 MG TABLET.DR PO SCH (10:56)
[2018-04-19] MEDS: CYANOCOBALAMIN 1,000 MCG TABLET PO SCH (10:56)
[2018-04-19] MEDS: levETIRAcetam 500 MG TABLET PO SCH ×2 (10:56→20:31)
[2018-04-19] MEDS: SERTRALINE HCL 50 MG TABLET PO SCH (10:56)
[2018-04-19] MEDS ORDERED: DONEPEZIL HCL 10 MG TABLET PO SCH (21:00)
[2018-04-19] MEDS ORDERED: MIRTAZAPINE 15 MG TABLET PO SCH (21:00)
[2018-04-20] MEDS: LEVOTHYROXINE SODIUM 50 MCG TABLET PO SCH (07:24)
[2018-04-20] MEDS: ACETAMINOPHEN 650 MG TABLET PO SCH ×2 (09:23→12:04)
[2018-04-20] MEDS: ASPIRIN 81 MG TABLET.DR PO SCH (09:24)
[2018-04-20] MEDS: SERTRALINE HCL 50 MG TABLET PO SCH (09:25)
[2018-04-20] MEDS: CYANOCOBALAMIN 1,000 MCG TABLET PO SCH (09:25)
[2018-04-20] MEDS: levETIRAcetam 500 MG TABLET PO SCH (09:25)
--- NOTE | 2018-04-20 09:58 | HP ---
Chief Complaint - Chief Complaint Date of Service: 04/19/18 Time of Service: 08:15 Chief Complaint: Low blood sugar History of Present Illness: The patient resides in the dementia unit, [facility], at [facility] [place] and she was brought to the ED by EMS due to symptomatic hypoglycemia. Around 10pm yesterday evening, she was found to be unresponsive and lethargic and subsequently she was found to have a BG of 31. Upon EMS arrival at [facility], she was given an amp of D50 and her BG improved into the 200s. The patient has Type 2 diabetes and is on insulin; Lantus once daily and Novolog/Humalog TID with meals. By the time of my exam this AM, the patient is awake and alert and back to her baseline mental status. Medical History (Last Reviewed 04/19/18 @ 01:18 by Marisol Larkin RN) Dementia (Chronic) Osteoporosis (Chronic) Onset Date: 2011 Hypothyroid (Chronic) Onset Date: Unknown Essential hypertension (Chronic) Onset Date: Unknown Hyperlipidemia (Chronic) Onset Date: Unknown Type II diabetes mellitus (Chronic) Onset Date: Unknown Depression (Chronic) Onset Date: 03/20/17 Chronic kidney disease, stage 3 (Chronic) Onset Date: 2009 Seizure Aortic stenosis Onset Date: Unknown Surgical History: Surgical History (Last Reviewed 04/19/18 @ 01:18 by Marisol Larkin RN) H/O aortic valve replacement Onset Date: 12/29/11 History of incision and drainage Onset Date: 06/[address] Wilkerson History of open reduction and internal fixation (ORIF) procedure Onset Date: 05/2011 History of tonsillectomy Onset Date: Unknown as a child Family History: Family History (Last Reviewed 04/19/18 @ 01:18 by Marisol Larkin RN) Father , age 75 Diabetes CVA (cerebral vascular accident) Mother No problems noted. Social History: Patient Lives/Resources [place] Utilized Preferred Language Grenadian Do you have any pentecostalism or pt unable to provide answer cultural preference? Smoking Status Unknown if ever smoked Have you smoked in the past 12 No months Do you dip or chew tobacco No Abuse History No History of abuse Psych History No pertinent hx Alcohol Use none Drug Use none (Last Updated 02/15/18 @ 17:09 by Angela Echavarria DO) No Social History Section defined Review Of Systems (GEN) - Review of Systems Respiratory: Present: No Symptoms Reported Cardiac: Present: No Symptoms Reported Abdominal: Present: No Symptoms Reported Genitourinary: Present: No Symptoms Reported Misc: All systems neg except as marked Immunizations: IMMUNIZATION HX Immunizations Up to Date Yes History of Influenza Vaccine More Information Required Hx Pneumococcal Vaccination More Information Required Allergies/Adverse Reactions: Allergies Allergy/AdvReac Type Severity Reaction Status Date / Time tramadol AdvReac Nausea Verified 02/11/18 22:27 Home Medications: HOME MEDICATIONS Levothyroxine Sodium [Synthroid] 50 mcg PO DAILY 10/20/16 [Last Taken Unknown] Donepezil HCl [Aricept] 10 mg PO HS 01/15/17 [Last Taken Unknown] Cyanocobalamin (Vitamin B-12) [B-12] 1,000 mcg PO DAILY 05/11/17 [Last Taken Unknown] Mirtazapine [Remeron] 15 mg PO HS 05/11/17 [Last Taken Unknown] emollient combination no.97 topical ointment See Rx Instructions TP BID g 12/27/17 [Last Taken Unknown] metformin 1,000 mg tablet 1,000 mg PO BID #180 tab 01/18/18 [Last Taken Unknown] aspirin 81 mg tablet,delayed release 81 mg PO DAILY #30 tab 03/07/18 [Last Taken Unknown] acetaminophen ER 650 mg tablet,extended release 650 mg PO QID #120 tab 03/08/18 [Last Taken Unknown] calcium carbonate-vitamin D3 600 mg (1,500 mg)-800 unit tablet 1 tab PO BID #60 tab 03/08/18 [Last Taken Unknown] cholecalciferol (vitamin D3) 2,000 unit tablet 2,000 unit PO DAILY #30 tab 03/08/18 [Last Taken Unknown] sertraline 50 mg tablet 50 mg PO DAILY #90 tab 03/14/18 [Last Taken Unknown] Clobetasol Propionate/Emoll [Clobetasol Emollient 0.05% Crm] 1 appl TP DAILY PRN 04/18/18 [Last Taken Unknown] Syringe, Disposable, 6 ml [Monoject Syringe] 1 each MC DAILY 04/18/18 [Last Taken Unknown] levETIRAcetam [Keppra] 500 mg PO BID 04/18/18 [Last Taken Unknown] Pen Needle, Diabetic [Pen Needle] 0 each .ROUTE .MEDSUPPLY 04/19/18 [Last Taken Unknown] Carbamide Peroxide [Earwax Treatment Drops] 5 drop OT DAILY PRN #1 bottle 04/20/18 [Last Taken Unknown] Lisinopril 5 mg PO DAILY #30 tablet 04/20/18 [Last Taken Unknown] Exam - Exam Vital Signs: Vital Signs - Last Taken Temp 36.2 C 04/20/18 08:07 Pulse 104 H 04/20/18 08:07 Resp 12 04/20/18 08:07 BP 154/73 H 04/20/18 08:07 Pulse Ox 99 04/20/18 08:07 Constitutional: Present: Alert, Cooperative, No distress, Elderly, Thin and frail ENT Exam: Present: hard of hearing, moist mucous membranes Eye Exam: bilateral eye: normal inspection Respiratory: Present: lungs clear, normal breath sounds, no respiratory distres s, no accessory muscle use Cardiovascular/Chest: Present: regular rate, rhythm Abdomen: Present: Normal bowel sounds, soft, nontender, nondistended Extremity: Present: non-tender, normal inspection Skin Exam: Present: warm/dry Neurologic: Present: no motor/sensory deficits, alert, normal mood/affect Appearance: Present: impaired recent memory, impaired remote memory Eye contact: Present: cooperative Thoughts: Present: no apparent hallucination Diagnostic Studies: Microbiology 04/18/18 22:57 Urine Culture - Preliminary Urine,Catheterized No Growth 04/19/18 02:10 - Final Nares MRSA Negative Laboratory Results WBC 10.0 K/mm3 (4.0-10.5) 04/18/18 23:11 RBC 3.34 M/mm3 (4.2-5.4) L 04/18/18 23:11 Hgb 10.7 gm/dL (12.5-16.0) L 04/18/18 23:11 Hct 32.6 % (37.0-47.0) L 04/18/18 23:11 MCV 97.6 fl (78-100) 04/18/18 23:11 MCH 32.0 pg (27-31) H 04/18/18 23:11 MCHC 32.8 g/dl (32-36) 04/18/18 23:11 RDW 13.4 % (11.5-14.0) 04/18/18 23:11 Plt Count 252 K/mm3 (150-450) 04/18/18 23:11 MPV 10.1 fl (8-12.5) 04/18/18 23:11 Immature Gran % (Auto) 0.70 % (0.001-0.429) H 04/18/18 23:11 Immature Gran # (Auto) 0.07 K/mm3 (0.000-0.0310) H 04/18/18 23:11 Neutrophils % 79.0 % (42-75.0) H 04/18/18 23:11 Lymphocytes % 5.5 % (20-51) L 04/18/18 23:11 Monocytes % 9.9 % (0.0-9) H 04/18/18 23:11 Eosinophils % 3.9 % (0.0-3.0) H 04/18/18 23:11 Basophils % 1.0 % (0.0-1.0) 04/18/18 23:11 Nucleated RBC % 0.0 k/mm3 (0-1) 04/18/18 23:11 Neutrophils # 7.9 K/mm3 (1.3-6.0) H 04/18/18 23:11 Lymphocytes # 0.55 k/mm3 (1.5-3.5) L 04/18/18 23:11 Monocytes # 1.0 k/mm3 (0.0-1.0) 04/18/18 23:11 Eosinophils # 0.4 k/mm3 (0.0-0.7) 04/18/18 23:11 Absolute Basophils 0.1 k/mm3 (0.0-0.1) 04/18/18 23:11 Sodium 136 mmol/L (132-142) 04/18/18 23:11 Plasma Sodium 137 mmol/L (130-142) 04/18/18 23:11 Potassium 3.8 mmol/L (3.4-4.6) 04/18/18 23:11 Chloride 101 mmol/L (97-106) 04/18/18 23:11 Carbon Dioxide 25.8 mmol/L (24-32.6) 04/18/18 23:11 Anion Gap 13.0 mmol/L (6.8-13.8) 04/18/18 23:11 BUN 20 mg/dL (3-23) 04/18/18 23:11 Creatinine 1.54 mg/dL (0.4-1.4) H D 04/18/18 23:11 Est GFR (Non-Af Amer) 34 mL/min (60-130) L D 04/18/18 23:11 BUN/Creatinine Ratio 13.0 (9.0-21.6) 04/18/18 23:11 Random Glucose 173 mg/dL (70-110) H 04/18/18 23:11 Calcium 8.7 mg/dL (7.9-10.9) 04/18/18 23:11 Calcium Adj for Albumin 9.0 mg/dL (8.4-10.2) 04/18/18 23:11 Total Bilirubin 0.2 mg/dL (0.0-1.1) 04/18/18 23:11 AST 15 U/L (0-48) 04/18/18 23:11 ALT 18 U/L (19-67) L 04/18/18 23:11 Alkaline Phosphatase 44 U/L (50-170) L 04/18/18 23:11 Troponin I Less than 0.017 ng/mL (0.00-0.10) 04/18/18 23:11 Total Protein 5.8 gm/dL (6.2-8.2) L 04/18/18 23:11 Albumin 3.2 gm/dl (3.4-5.0) L 04/18/18 23:11 Urine Color Yellow 04/18/18 22:57 Urine Appearance Clear (CLEAR) 04/18/18 22:57 Urine pH 5.0 pH (5.0-7.0) 04/18/18 22:57 Ur Specific [place] >=1.030 SP.GR. (1.005-1.010) 04/18/18 22:57 Urine Protein Negative mg/dL (NEGATIVE) 04/18/18 22:57 Urine Glucose (UA) Negative mg/dL (NEGATIVE) 04/18/18 22:57 Urine Ketones 5 mg/dL (NEGATIVE) 04/18/18 22:57 Urine Blood Negative /ul (NEGATIVE) 04/18/18 22:57 Urine Nitrate Negative (NEGATIVE) 04/18/18 22:57 Urine Bilirubin Negative mg/dl (NEGATIVE) 04/18/18 22:57 Urine Urobilinogen Normal EU/dl (NORMAL) 04/18/18 22:57 Ur Leukocyte Esterase Negative /ul (NEGATIVE) 04/18/18 22:57 Urine RBC None seen /hpf (0-5) 04/18/18 22:57 Urine WBC None seen /hpf (0-5) 04/18/18 22:57 Ur Epithelial Cells Trace /hpf (0-5) 04/18/18 22:57 Amorphous Sediment Few - 1+ (NONE-FEW) 04/18/18 22:57 Urine Bacteria Trace (NONE) 04/18/18 22:57 Hyaline Casts Trace /LPF (NONE) 04/18/18 22:57 Urine Culture Comments Culture to follow 04/18/18 22:57 Assessment/Plan - Narrative Narrative: Patient admitted to med-surg, outpatient observation. We will plan to keep the patient in the hospital over the next 24 hours to monitor her BG closely. Check BG Q4H. Due to the patient's progressive dementia, she has had a decrease in appetite and does not eat as much as she has previously. We will completely discontinue the patient's insulin and only continue Metformin for now. Discontinue IVFs and encourage oral intake. As long as the patient remains stable, we will plan to discharge her back to [facility] [place] tomorrow AM. - Assessment/Plan (1) Hypoglycemia associated with type 2 diabetes mellitus Problem: Acute (2) Dementia Problem: Chronic (3) Chronic kidney disease, stage 3 Problem: Chronic
--- NOTE | 2018-04-20 10:05 | DS ---
(1) Hypoglycemia associated with type 2 diabetes mellitus Problem: Acute (2) Dementia Problem: Chronic (3) Essential hypertension Problem: Chronic (4) Type II diabetes mellitus Problem: Chronic (5) Weakness generalized Problem: Chronic Description of Stay: ADMISSION DATE: 04/19/2018 DISCHARGE DATE: 04/20/2018 ADMISSION HPI: The patient resides in the dementia unit, [facility], at [facility] and she was brought to the ED by EMS due to symptomatic hypoglycemia. Around 10pm yesterday evening, she was found to be unresponsive and lethargic and subsequently she was found to have a BG of 31. Upon EMS arrival at [facility], she was given an amp of D50 and her BG improved into the 200s. The patient has Type 2 diabetes and is on insulin; Lantus once daily and Novolog/Humalog TID with meals. By the time of my exam this AM, the patient is awake and alert and back to her baseline mental status. HOSPITAL COURSE: The patient was admitted to the hospital for severe symptomatic hypoglycemia in a type 2 diabetic patient on home insulin. She was monitored for over 24 hours and her BG was checked Q4H. She did not require additional D50 during her admission. I have discontinued all her home insulin and we will keep the patient only on oral medications. I will have [facility] fax me reports of the patients BG levels every 1-2 weeks and I will continued to adjust the patients diabetic medications as necessary. FOLLOW-UP APPOINTMENTS: -Dr. Echavarria within 1-2 weeks -Check BMP in 1 week NEW OR CHANGED MEDICATIONS: -Lisinopril 5mg PO daily DISCONTINUED MEDICATIONS: -All insulin Lantus and Humalog/Novolog RADIOLOGY REPORTS: -None Procedures Performed: none Results and Findings: Pending Mircobiology Results 04/18/18 22:57 Urine,Catheterized Urine Culture - Preliminary No Growth Lab Pending Results 04/18/18 22:57: Urine Color Yellow, Urine Appearance Clear, Urine pH 5.0, Ur Specific [place] >=1.030, Urine Protein Negative, Urine Glucose (UA) Negative, Urine Ketones 5, Urine Blood Negative, Urine Nitrate Negative, Urine Bilirubin Negative, Urine Urobilinogen Normal, Ur Leukocyte Esterase Negative, Urine RBC None seen, Urine WBC None seen, Ur Epithelial Cells Trace, Amorphous Sediment Few - 1+, Urine Bacteria Trace, Hyaline Casts Trace, Urine Culture Comments Culture to follow 04/18/18 23:11: WBC 10.0, RBC 3.34 L, Hgb 10.7 L, Hct 32.6 L, MCV 97.6, MCH 32.0 H, MCHC 32.8, RDW 13.4, Plt Count 252, MPV 10.1, Immature Gran % (Auto) 0.70 H, Immature Gran # (Auto) 0.07 H, Neutrophils % 79.0 H, Lymphocytes % 5.5 L, Monocytes % 9.9 H, Eosinophils % 3.9 H, Basophils % 1.0, Nucleated RBC % 0.0, Neutrophils # 7.9 H, Lymphocytes # 0.55 L, Monocytes # 1.0, Eosinophils # 0.4, Absolute Basophils 0.1 04/18/18 23:11: Sodium 136, Plasma Sodium 137, Potassium 3.8, Chloride 101, Carbon Dioxide 25.8, Anion Gap 13.0, BUN 20, Creatinine 1.54 H D, Est GFR (Non- Af Amer) 34 L D, BUN/Creatinine Ratio 13.0, Random Glucose 173 H, Calcium 8.7, Calcium Adj for Albumin 9.0, Total Bilirubin 0.2, AST 15, ALT 18 L, Alkaline Phosphatase 44 L, Troponin I Less than 0.017, Total Protein 5.8 L, Albumin 3.2 L Discharge Location: [facility] Disposition: Home self-care Condition: Stable Discharge Activity: Activity as tolerated Discharge Diet: General/regular food Referrals: Angela Echavarria DO [Primary Care Provider] - Problem Oriented Discharge Instructions to Patient/Family: Blood Glucose Monitoring, Adult, Hypoglycemia, [id number] Additional Patient Instructions (free text): -Please make TCM appointment unless retirement discharge. Thank you! Chelle @ ext:[phone]. Continue to check blood sugars QID ([facility]). Please send ENTIRE record of blood sugars to Dr Echavarria's office after 2 weeks so she can reassess insulin needs. On ly continuing Metformin at this time. Regular diet and continue with health shakes that were previously being given . Follow up with Dr. Echavarria on May 04 at 10:15am Prescriptions (Any new or edited meds): Carbamide Peroxide [Earwax Treatment Drops] 5 drop OT DAILY PRN #1 bottle PRN Reason: Ear Wax Lisinopril 5 mg PO DAILY #30 tablet Complete Home Medications List: Complete Home Medication List: Levothyroxine Sodium [Synthroid] 50 mcg PO DAILY 10/20/16 Donepezil HCl [Aricept] 10 mg PO HS 01/15/17 Cyanocobalamin (Vitamin B-12) [B-12] 1,000 mcg PO DAILY 05/11/17 Mirtazapine [Remeron] 15 mg PO HS 05/11/17 emollient combination no.97 topical ointment See Rx Instructions TP BID g 12/27/17 metformin 1,000 mg tablet 1,000 mg PO BID #180 tab 01/18/18 aspirin 81 mg tablet,delayed release 81 mg PO DAILY #30 tab 03/07/18 acetaminophen ER 650 mg tablet,extended release 650 mg PO QID #120 tab 03/08/18 calcium carbonate-vitamin D3 600 mg (1,500 mg)-800 unit tablet 1 tab PO BID #60 tab 03/08/18 cholecalciferol (vitamin D3) 2,000 unit tablet 2,000 unit PO DAILY #30 tab 03/08/18 sertraline 50 mg tablet 50 mg PO DAILY #90 tab 03/14/18 Clobetasol Propionate/Emoll [Clobetasol Emollient 0.05% Crm] 1 appl TP DAILY PRN 04/18/18 Syringe, Disposable, 6 ml [Monoject Syringe] 1 each MC DAILY 04/18/18 levETIRAcetam [Keppra] 500 mg PO BID 04/18/18 Pen Needle, Diabetic [Pen Needle] 0 each .ROUTE .MEDSUPPLY 04/19/18 Carbamide Peroxide [Earwax Treatment Drops] 5 drop OT DAILY PRN #1 bottle 04/20/18 Lisinopril 5 mg PO DAILY #30 tablet 04/20/18 Amb Orders for Discharge: Basic Metabolic Panel Time Frame: 1 Week, Location: Laboratory
[2018-04-20 15:19] VITALS: BP 150/60
== END 2018-04-20 15:15 | disposition home or self-care (01) ==
LOC: ER 22:46 → INTOOBSV 04-19 01:03 → MS 04-19 01:03
PROVIDERS: ADMIT Family Medicine; ATTEND Internal Medicine
CPT/HCPCS: 36415; 80053; 81001; 84484; 85025; 87081; 87086; 93005; 96361; 96374; 99284; G0378